=== PATIENT | male | born 1975 | race Caucasian/White ===

== ENCOUNTER → 2019-07-01 10:53 | Outpatient (CLI) | payer BC, SELFPAY | PROVIDERS: PCP Family Medicine; Visit Provider Nurse Practitioner Family | DX: G47.33 Obstructive sleep apnea (adult) (pediatric) (principal) | CPT/HCPCS: G0399 ==

== ENCOUNTER → 2019-07-08 13:49 | Outpatient (CLI) | payer BC, SELFPAY | PROVIDERS: PCP Family Medicine; Visit Provider Nurse Practitioner Family | DX: R07.9 Chest pain, unspecified (principal); I49.9 Cardiac arrhythmia, unspecified; R94.31 Abnormal electrocardiogram [ECG] [EKG]; G47.33 Obstructive sleep apnea (adult) (pediatric); Z82.49 Family history of ischemic heart disease and other diseases of the circulatory system | CPT/HCPCS: 93270 ==

== ENCOUNTER → 2019-07-22 14:35 | Outpatient (CLI) | payer BC, SELFPAY ==
--- NOTE | 2019-07-22 14:36 | CA_ITS ---
APPROVED REPORT Exam: Exercise Treadmill Technologist: Randi Dumas Ht: 6 ft 0 in Wt: 260 lbs BSA: 2.38 m2 Indications: ARRYHTHMIAS Medical History Medications: Migraine MED,,,,, Cardiac Risk Factors: FHX of CAD Stress Test Details Test: Exercise stress testing was performed using a Jean protocol. HR Resting HR: 74 bpm Max Heart Rate (APMHR): 174 bpm Max HR Achieved: 179 bpm Target HR (85% APMHR): 147 bpm % of APMHR: 102 BP Resting BP: 123/74 mmHg Max BP: 166/79 mmHg ECG Clinical Exercise duration: 09:00 min Highest Stage Achieved: Exercise capacity: 10.1 METs Stress ECG Conclusion no cp, positive for soa during pk exercise, resolved during recovery no ectopy less than 1.[address] depression gxt only good physical capacity, appropriate BP response, Normal exercise treadmill stress test Electronically signed by : Michael Ochoa, 07/23/2019 15:00:49
--- NOTE | 2019-07-22 14:36 | CA_ITS ---
APPROVED REPORT EXAM: Comprehensive 2D, Doppler, and color-flow Echocardiogram Cone Cleaner: Nadia Garcia RVT Ht: 6 ft 0 in Wt: 271lbs BSA: 2.42 BP: 127/67 mmHg Indications: CP,SOA,MOCTEZUMA,NAVA,ABN EKG 2D Dimensions LVOT 2.14 cm (M/F) 1.5-2.5 M-Mode Dimensions RVDd 2.42 cm (0.9-2.6) LVDd 4.78 cm (3.5-5.7) LVDs 2.68 cm (3.5-5.7) IVSd 0.95 cm (0.6-1.1) PWd 1.23 cm (0.6-1.1) EF (Teich) 75.10% FS 43.90% EDV (Teich) 106.50 mL ESV (Teich) 26.50 mL LV Diastology E/A Ratio 0.94 Mitral Valve MV A Velocity 67.00 (40-130 cm/s) Left Ventricle Left atrium is mildly enlarged, left ventricle is normal size, mild concentric left ventricular hypertrophy, visually estimated ejection fraction 55% with no regional wall motion abnormality, grade 1 diastolic dysfunction seen without tissue Doppler evidence of raise left atrial pressure. Right Ventricle Right atrium is normal size, right ventricle is mildly enlarged with normal contractility. Aortic Valve Aortic valve is grossly normal, there is no aortic stenosis or aortic insufficiency. Mitral Valve Mitral valve is grossly normal, there is mild mitral regurgitation. Tricuspid Valve Tricuspid valve is grossly normal, there is mild tricuspid regurgitation, tricuspid regurgitation jet velocity is inadequate for calculation of the right ventricular systolic pressure. Pulmonic Valve Pulmonic valve is poorly visualized. Great Vessels Aortic root is normal size. Pericardium No significant pericardial effusion noted. Conclusion 1. Normal left ventricular size, mild concentric left ventricular hypertrophy, visually estimated ejection fraction 55% with no regional wall motion abnormality, grade 1 diastolic dysfunction seen without tissue Doppler evidence of raise left atrial pressure. 2. Mildly enlarged right ventricle with normal contractility. 3. Mild mitral and tricuspid regurgitation. 4. No significant pericardial effusion noted. Electronically signed by : Michael Ochoa, 07/23/2019 15:17:32
== END ==
PROVIDERS: PCP Family Medicine; Visit Provider Nurse Practitioner Family
DX: R07.9 Chest pain, unspecified (principal); I49.9 Cardiac arrhythmia, unspecified; R94.31 Abnormal electrocardiogram [ECG] [EKG]; G47.33 Obstructive sleep apnea (adult) (pediatric); Z82.49 Family history of ischemic heart disease and other diseases of the circulatory system
CPT/HCPCS: 93017; 93306

== ENCOUNTER 2023-12-27 08:34 | Outpatient (CLI) | payer BC, SELFPAY ==
--- NOTE | 2023-12-27 08:34 | CT_ITS ---
APPROVED REPORT Biscuit Factory Worker: CLINICAL INDICATION Chest Pain TECHNIQUE Image Acquisition: A 128 slice MDCT scanner ([employer] View) was used for data acquisition. A noncontrast coronary calcium scan was performed. A CT attenuation threshold of 130 Hounsfield units (HU) was used for the detection of calcium in contiguous voxels of 1 sq mm in area to be counted as individual lesions. Bolus tracking in the ascending aorta with a threshold of 180 HU was performed. Immediately afterwards, ECG synchronized cardiac CT was then performed from the cardiac base to apex using retrospective gating with ECG tube current modulation. A total of 85 mL of Isovue 370 mg/mL contrast medium was administered at 5 mL/sec followed by a saline flush using a biphasic injection protocol. A tube voltage of 120 KVp was used. The patient received the following medications prior to the cardiac CT. 75 mg of oral metoprolol 15 mg of oral ivabradine 0.8 mg of sublingual nitroglycerin The average heart rate at the time of acquisition was 57 bpm and regular. Image Reconstruction Transaxial images were reconstructed at 0.67 mm slide thickness. Data was reviewed interactively on an advanced workstation capable of 2 and 3-dimensional displays in all conventional reconstruction formats, including multiplanar reformations, maximum intensity projections, curved multiplanar reformations, and volume rendered reconstructions. When applicable, selected routine images describing the relevant coronary anatomy and pathology were saved and sent to PACS. Complications None Technical Quality Overall image quality was good. Coronary artery opacification was adequate. Total DLP (Dose-Length Product) is 1843.0 mGy-cm. The reported value represents the total of one or more individual components during the CT acquisition of this date and at this time, and as such, the same value may appear in more than one CT report depending on the interpreting/reporting physicians. COMPARISON None FINDINGS CT Coronary Calcium Scoring LMA (Left Main Artery) = 0 LAD (Left Anterior Descending) = 0 LCX (Left Coronary Circumflex) = 0 RCA (Right Coronary Artery) = 0 Total Calcium Score = 0 using the AJ-130 method. The interpretation of the calcium heart score is based on the following continuum*: 0 = no calcified plaque detected (risk of coronary artery disease is very low ??? less than 5%) 1-10 = calcium detected in extremely minimal levels (risk of coronary diseases is still low ??? less than 10%) 11-100 = mild levels of plaque detected with certainty (mild or minimal narrowing of heart arteries is likely) 101-400 = definite,at least moderate levels of plaque detected (relatively high risk of a heart attack within 3-5 years) >401-999 = extensive levels of plaque detected (high risk of heart attack, high levels of vascular disease are present, high likelihood of at least one significant coronary narrowing) *The calcium heart score quantifies the burden of coronary calcification/plaque in the coronary arteries. The calcium heart score is not able to evaluate the presence or burden of non-calcified (i.e. soft) plaque. There is no identifiable calcification in the aortic valve, mitral annulus or mitral valve, pericardium, or myocardium. Coronary CT Angiography The coronary arterial system is right dominant. Quantitative Stenosis Grading: Left Main (LM): The left main originates normally from the left sinus of Valsalva. The LM bifurcates into the left anterior descending artery and left circumflex artery. The LM is patent with no evidence of atherosclerosis. Left Anterior Descending (LAD) and Diagonal Branches: The LAD gives off 3 diagonal branch(es). The LAD and its branches are patent with no evidence of atherosclerosis. There is no evidence of LAD-myocardial bridge. Left Circumflex (LCX) and Obtuse Marginals (OM): The LCX gives off 1 Obtuse Marginal (OM) branch(es). The LCX and its branches are patent with no evidence of atherosclerosis. Right Coronary Artery (RCA): The RCA originates normally from the right sinus of Valsalva. The RCA gives off a posterior descending artery (PDA) and posterolateral (PL) branches. The RCA and its branches are patent with no evidence of atherosclerosis. Non-Coronary Cardiac Findings: Analysis of the left ventricular (LV) structure and function was performed after 3-D reconstruction of the LV from axial images, with user-corrected automatic contouring for assessment of LV volumes and user-defined reconstruction from oblique planes for measurement of 3-D cardiac structure and function. -The left ventricle systolic function is normal. -There is no left atrial appendage filling defect. Two right pulmonary veins and two left pulmonary veins drain normally into the left atrium. -No pericardial thickening or calcification. -Central and branch pulmonary arteries in the [id number] are unremarkable. -Thoracic aorta within the visualized thoracic aortic-branches in the [id number] is unremarkable. Extracardiac Structures No significant extra-cardiac findings. Note, however, that this study is focused on the cardiac findings. IMPRESSION -Absence of coronary calcification with an Agatston score = 0 using the AJ-130 method. -No evidence of significant flow-limiting atherosclerosis of the coronary arteries. -No evidence of coronary anomalies or myocardial bridges. -CAD-RADS 0. Management recommendations per ACC/AHA guidelines*, as clinically appropriate. *Recommendations: CAD RADS 0: Reassurance. Consider non-atherosclerotic causes of chest pain. CAD RADS 1: Consider non-atherosclerotic causes of chest pain. Consider preventive therapy and risk factor modification. CAD RADS 2: Consider non-atherosclerotic causes of chest pain. Consider preventive therapy and risk factor modification, particularly for patients with nonobstructive plaque in multiple segments. CAD RADS 3: Consider further functional testing. Consider symptom-guided anti-ischemic and preventive pharmacotherapy as well as risk factor modification per published guideline statements. CAD RADS 4A: Consider further functional testing or invasive coronary angiography with revascularization per published guideline statements. Consider symptom-guided anti-ischemic and preventive pharmacotherapy as well as risk factor modification per published guideline statements. CAD RADS 4B: Invasive coronary angiography recommended with revascularization per published guideline statements. Consider symptom-guided anti-ischemic and preventive pharmacotherapy as well as risk factor modification per published guideline statements. CAD RADS 5: Consider invasive angiography and/or viability assessment with revascularization per published guideline statements. Consider symptom-guided anti-ischemic and preventive pharmacotherapy as well as risk factor modification per published guideline statements. CRITICAL RESULT None COMMUNICATION Per this written report The coronary and cardiac findings of this CCTA were reviewed, reported, and signed by Alec Red MD (D[employer] Carrier) Conclusion Electronically signed by : Angelita Red MD 12/30/2023 12:53:43
[2023-12-27 08:47] VITALS: BMI 39.3
[2023-12-27 08:55] VITALS: BP 152/87; PULSE 77; RESP 16; O2SAT 96
[2023-12-27] MEDS: IVABRADINE HCL 7.5MG TABLET PO (09:04)
[2023-12-27] MEDS: METOPROLOL TARTRATE 50MG TABLET PO (09:04)
[2023-12-27 09:31] LABS: Chloride 105 mmol/L (98-107); Potassium 3.9 mmoL/L (3.5-5.1); Sodium 138 mmol/L (136-145)
[2023-12-27 09:34] LABS: Anion Gap 8.9 mEq/L (5-15); Blood Urea Nitrogen 16 mg/dl (9-20); Carbon Dioxide 28 mmol/L (22.0-30.0); Creatinine Clearance Estimated 149 mL/min (50-200); Estimated Glomerular Filt Rate 71 ml/min (>60); GFR (African American) 86 ML/MIN (>60)
[2023-12-27 09:35] LABS: Calcium 9.1 mg/dl (8.4-10.2); Glucose 100 mg/dl (74-100)
[2023-12-27 10:05] VITALS: BP 138/93; PULSE 63; RESP 16; O2SAT 95
[2023-12-27] MEDS: IOPAMIDOL-370 (76%);100ML BOTTLE 80 ML IV (10:08)
[2023-12-27] MEDS: 0.9 % SODIUM CHLORIDE 50 ML VIAL IV (10:08)
[2023-12-27 10:11] VITALS: BP 121/79; PULSE 62; RESP 16; O2SAT 93
[2023-12-27 10:20] VITALS: BP 128/73; PULSE 65; RESP 16; O2SAT 95
== END 2023-12-27 10:22 | disposition home or self-care (01) ==
PROVIDERS: PCP Family Medicine; Visit Provider Internal Medicine
DX: R07.9 Chest pain, unspecified (principal); R94.31 Abnormal electrocardiogram [ECG] [EKG]; I10 Essential (primary) hypertension
CPT/HCPCS: 75574; 80048; Q9967

== ENCOUNTER 2025-01-10 22:58 | Observation (INO) | payer BC, SELFPAY ==
[2025-01-10 23:01] VITALS: BP 171/93; PULSE 74; RESP 18; TEMP 36.6; O2SAT 98; BMI 39.3
--- NOTE | 2025-01-10 23:04 | HMH.EDGENADL ---
Discharge Plan Disposition Patient Disposition: Admitted Prescriptions Prescriptions: No Action propranolol 80 mg capsule,extended release 24 hr 80 mg PO DAILY omeprazole 40 mg capsule,delayed release(DR/EC) 40 mg PO DAILY levothyroxine 112 mcg tablet 112 mcg PO DAILY Patient Comments: TAKE 1 TABLET BY MOUTH EVERY DAY IN THE MORNING rosuvastatin 10 mg tablet 10 mg PO HS Patient Comments: TAKE 1 TABLET BY MOUTH EVERY DAY allopurinol 100 mg tablet 100 mg PO DAILY colchicine [Colcrys] 0.6 mg tablet 0.6 mg PO BID PRN (Reason: ukn) rizatriptan 10 mg tablet,disintegrating 10 mg PO Q2H PRN (Reason: Hypertension) Patient Comments: PLEASE SEE ATTACHED FOR DETAILED DIRECTIONS Referrals Follow up/Referrals: Beatrice Finley [Primary Care Provider, Medical] - See instructions Clinical Impressions Clinical Impression: Bowel obstruction Instructions Patient Instructions: DI for Acute Abdominal Pain Print Language Print Language: Bulgarian Discharge ED Provider: Taco Smith General Adult HPI General Chief complaint: Abdominal Pain Stated complaint: Sharp Abdominal Pains Upper quadrant on both sides Time Seen by Provider: 01/10/25 23:04 History of Present Illness HPI narrative: 49-year-old male without significant past medical history, no history of abdominal surgery, presents for upper abdominal pain bilaterally starting a few hours ago. Pain is sharp, severe, 10 out of 10. Reports nausea secondary to pain. Had a normal formed bowel movement at 7 PM. Denies fever. Nothing like this has happened before. Related Data Home Medications ?Medication ?Instructions ?Recorded ?Confirmed allopurinol 100 mg tablet 100 mg PO DAILY 05/13/19 12/27/23 rizatriptan 10 mg disintegrating 10 mg PO Q2H PRN Hypertension 10/28/19 12/27/23 tablet propranolol 80 mg capsule,24 80 mg PO DAILY 01/27/20 12/27/23 hr,extended release colchicine 0.6 mg tablet (Colcrys) 0.6 mg PO BID PRN ukn 05/23/21 12/27/23 omeprazole 40 mg capsule,delayed 40 mg PO DAILY 05/23/21 12/27/23 release levothyroxine 112 mcg tablet 112 mcg PO DAILY 12/17/23 12/27/23 rosuvastatin 10 mg tablet 10 mg PO HS 12/17/23 12/27/23 Allergies Allergy/AdvReac Type Severity Reaction Status Date / Time Penicillins Allergy Unknown Unknown Verified 12/27/23 08:52 allergy reaction Sulfa (Sulfonamide Allergy Hives Verified 12/27/23 08:52 Antibiotics) [facility] Disclaimer: The information contained in this section may have been updated after the patient was seen, as this information can be updated by other users. Medical History Abnormal ECG Chest pain Family history of ischemic heart disease Arrhythmia NAVA (obstructive sleep apnea) Diastolic dysfunction HTN (hypertension) SOB (shortness of breath) on exertion Social History Smoking Status: Never smoker alcohol intake: current alcohol intake frequency: holidays/special occasions only substance use type: denies use current occupational status: employed Travel in the last 8 weeks?: Inside the [place] household members: none housing: house Have you lived/traveled outside [place] in past 30 days?: No Contact w/someone who lives/traveled outside US past 30 days?: No Exposure to someone with infectious disease in past 14 days?: No Do you have a fever (greater than 100.4 F or 38 C)?: No Have you tested positive for COVID-19?: No Exposed to someone with COVID-19 in past 14 days?: No Do you have a sore throat?: No Do you have a cough?: No Do you have any weakness?: No Do you have any diarrhea?: No Are you experiencing any unusual bleeding?: No Do you have any muscle aches/pain?: No Do you have any abdominal pain?: Yes Are you experiencing loss of taste or smell?: No Other Medical History Have you received the Flu Vaccine for this season: No Have you received the Pneumonia Vaccine: No ROS Obtained: Yes All systems reviewed & no additional complaints except as documented Physical Exam General General appearance: alert and in no apparent distress Head Head exam: atraumatic and normocephalic Eye Eye exam: Present normal appearance, PERRL and EOMI ENT ENT exam: Present normal oropharynx and normal external ear exam Neck Neck exam: Present normal inspection and full ROM Chest Chest inspection: Present normal inspection and symmetric chest wall rise; Absent tenderness Respiratory Respiratory exam: Present normal lung sounds bilaterally; Absent respiratory distress Cardiovascular Cardiovascular exam: Present regular rate and normal rhythm Abdominal Exam Abdominal exam: Present soft and tenderness (Moderate, bilateral upper quadrant); Absent distention or guarding Extremities Exam Extremities exam: Present normal inspection; Absent edema or joint swelling Back Exam Back exam: Present normal inspection; Absent tenderness Neurological Exam Neurological exam: Present alert and oriented X3; Absent motor sensory deficit Psychiatric Psychiatric exam: Present normal affect and normal mood Skin Skin exam: Present warm, dry and normal color Lymphatic Lymphatic Findings: no adenopathy Medical Decision Making Medical Records Medical records reviewed: Yes I reviewed the patient's medical records. Screening: Per USPSTF and CDC recommendations, given the prevalence of disease in our region, it is our hospital?s policy to screen for HIV and viral Hepatitis for all patients aged 18 and over and those with ongoing risk factors. Mauro Inquiry Pt receiving controlled substance: No Mauro was queried for this patient: No Vital Signs: 01/10/25 23:01 01/10/25 23:23 01/10/25 23:30 Temperature 97.9 F Temperature Source Oral Pulse Rate 76 75 Pulse Rate [Right] 74 Respiratory Rate 18 Blood Pressure Blood Pressure [Right Arm] 171/93 H Blood Pressure Mean Blood Pressure Mean [Right Arm] 119 Blood Pressure Source [Right Arm] Automatic Cuff Blood Pressure Position [Right Arm] Sitting 02 Sat by Pulse Oximetry 98 95 94 L 01/10/25 23:31 01/10/25 23:31 01/10/25 23:45 Temperature Temperature Source Pulse Rate 74 79 Pulse Rate [Right] Respiratory Rate Blood Pressure 129/78 Blood Pressure [Right Arm] Blood Pressure Mean 93 Blood Pressure Mean [Right Arm] Blood Pressure Source [Right Arm] Blood Pressure Position [Right Arm] 02 Sat by Pulse Oximetry 95 01/11/25 00:00 01/11/25 00:01 01/11/25 00:01 Temperature Temperature Source Pulse Rate 78 68 Pulse Rate [Right] Respiratory Rate Blood Pressure 126/67 Blood Pressure [Right Arm] Blood Pressure Mean 101 Blood Pressure Mean [Right Arm] Blood Pressure Source [Right Arm] Blood Pressure Position [Right Arm] 02 Sat by Pulse Oximetry 94 L 96 Lab Data Lab results reviewed: Yes I reviewed the patient's lab results. Lab Results 01/10/25 23:10: WBC 11.8 H, RBC 5.30, Hgb 16.1, Hct 47.1, MCV 88.9, MCH 30.4, MCHC 34.2, RDW 14.1, Plt Count 198, MPV 9.4, Neut % (Auto) 81.3 H, Lymph % (Auto) 10.9, [place] % (Auto) 6.1, Eos % (Auto) 0.7, Baso % (Auto) 0.6, Neut # (Auto) 9.6 H, Lymph # (Auto) 1.3, [place] # (Auto) 0.7, Eos # (Auto) 0.1, Baso # (Auto) 0.1, Sodium 137, Potassium 3.9, Chloride 100, Carbon Dioxide 28, Anion Gap 12.9, BUN 17, Creatinine 1.20, Estimated Creat Clear 136, Estimated GFR 64, Est GFR ( Amer) 77, Glucose 138 H, Calcium 9.5, Total Bilirubin 1.0, AST 37, ALT 38, Alkaline Phosphatase 86, Troponin I < 0.01, Total Protein 7.5, Albumin 3.9, Globulin 3.6 H, Albumin/Globulin Ratio 1.1, Lipase 89 01/10/25 23:13: Urine Color Yellow, Urine Appearance Clear, Urine pH 7.0, Ur Specific [place] 1.020, Urine Protein Trace, Urine Glucose (UA) Negative, Urine Ketones 1+, Urine Blood Negative, Urine Nitrate Negative, Urine Bilirubin Negative, Urine Urobilinogen 0.2, Ur Leukocyte Esterase Negative, Urine RBC None, Urine WBC None, Ur Squamous Epith Cells None, Urine Bacteria None 01/10/25 23:10 01/10/25 23:10 Orders (Tests/Meds): ED MEDICATIONS Generic Name Dose Route Start Last Admin Trade Name Freq PRN Reason Stop Dose Admin Lactated Ringer's 1,000 mls @ 999 mls/hr 01/11/25 00:45 Lactated Ringer's 1000 Ml Bag IV 01/11/25 01:45 .Q1H1M SHELLI Sodium Chloride 10 ml 01/11/25 00:11 01/11/25 00:12 Sodium Chloride 0.9% 10ml Syr (Rad Only) IV 02/10/25 00:10 10 ml NEEDED PRN Administration Maintain IV Site Discontinued Medications Generic Name Dose Route Start Last Admin Trade Name Freq PRN Reason Stop Dose Admin Acetaminophen 1,000 mg 01/10/25 23:21 01/10/25 23:36 Acetaminophen 500mg Tab PO 01/10/25 23:22 1,000 mg ONCE ONE Administration Belladonna Alkaloids 60 ml 01/10/25 23:21 01/10/25 23:35 Belladonna Alkaloids 60 Ml Ml PO 01/10/25 23:22 60 ml ONCE ONE Administration Iopamidol 75 ml 01/11/25 00:11 01/11/25 00:11 Iopamidol-370 (76%);100ml Bottle IV 01/11/25 00:12 75 ml ONCE ONE Administration Ketorolac Tromethamine 30 mg 01/10/25 23:21 01/10/25 23:36 Ketorolac 30mg/Ml Vial IV 01/10/25 23:22 30 mg ONCE ONE Administration Morphine Sulfate 4 mg 01/10/25 23:21 01/10/25 23:36 Morphine 4mg/Ml Syringe IV 01/10/25 23:22 4 mg ONCE ONE Administration Ondansetron HCl 4 mg 01/10/25 23:21 01/10/25 23:36 Ondansetron 4mg/2ml Vial IV 01/10/25 23:22 4 mg ONCE ONE Administration ORDERS Category Date Time Status CT abdomen pelvis w con Stat Cat Scan 01/10/25 23:21 Completed Complete Blood Count Auto Diff Stat Lab 01/10/25 23:10 Completed Comprehensive Metabolic Panel Stat Lab 01/10/25 23:10 Completed Lipase Stat Lab 01/10/25 23:10 Completed Trop I [Troponin I] Stat Lab 01/10/25 23:10 Completed Troponin I Q3H Lab 01/11/25 02:30 Ordered Troponin I Q3H Lab 01/11/25 05:30 Ordered Urinalysis and Microscopic Stat Lab 01/10/25 23:13 Completed EKG Request [ECG Request] Stat Y 01/10/25 23:21 Ordered HEART Score History (anamnesis): Slightly suspicious ECG: Normal Age: 45-65 years Risk factors: No known risk factors Troponin: </= normal limit HEART Score: 1 Medical Decision Narrative: 49-year-old male without significant reported past medical history presents for severe bilateral upper abdominal pain. History was obtained via interactive discussion with patient, chart review. On arrival, patient is [afebrile, hemodynamically stable, satting appropriately, alert, oriented x4, GCS 15], moving all extremities spontaneously. Full physical exam performed and significant for moderate bilateral upper quadrant tenderness Differential includes but is not limited to cholecystitis, gastritis, gastroenteritis, peptic ulcer, bowel obstruction, colitis, diverticulitis. Patient was given morphine Tylenol Toradol Zofran GI cocktail for symptomatic management and correction of underlying abnormalities. Workup initiated including CBC CMP lipase EKG troponin CT abdomen pelvis with IV contrast. On re-evaluation, patient continues to have pain approximately 7 out of 10. Laboratory workup independently interpreted by me and significant for mild leukocytosis, normal renal function, no significant electrolyte derangement, negative initial troponin. Urinalysis clean. Imaging independently interpreted by me and significant for significant fluid within the dilated small bowel with a decompressed colon concerning for developing small bowel obstruction.. See radiology read for full review of final results. EKG independently interpreted by me and significant for sinus rhythm, no significant ST or T wave changes, isolated Q-wave in lead III. Interpreted at 2328. Given patient history, exam and workup, patient's presentation most likely represents enteritis with ileus versus early small bowel obstruction. Interactive discussion was had with hospitalist on-call for admission for observation for possible small bowel obstruction. Procedures Risk/Benefits of Procedure(s) Were Explained: Yes Critical Care Critical Care Time Critical Care Time: No
--- OUTSIDE RECORDS SUMMARY | 2025-01-10 23:07 | XMS_ITS | Encounter Summary ---
Author Organization [facility] ([place], [place], [place], [place]) Address [address] [place] [address] Care Team Providers Care Security Orderly Name Role Phone Beatrice Finley MD Primary Care Provider [phone] Sonali Mccray TRANSMISSION SYSTEMS OPERATOR Unavailable [phone] Reason for Visit * Reason Comments Medication Refill Encounter Details Date Type Department Care Team (Late Contact Info) Description 10/30/2022 Refill [facility] Neurology - [facility] [address] [place] [address] Sonali Mccray TRANSMISSION SYSTEMS OPERATOR [address] [facility] [address] [place], [place] [id number] Migraine without aura, not intractable, without status migrainosus Social History Tobacco Use Types Packs/Day Years Used Date Smoking Tobacco: Never Alcohol Use Standard Drinks/Week Comments Never 0 (1 standard drink = 0.6 oz pur e alcohol) Sex and Gender Information Value Date Recorded Sex Assigned at Not on file Legal Sex Male 6:26 PM CDT Gender Identity Not on file Sexual Orientation Not on file Occupation Industry Job Start Date Job End Date Employed Not on file Not on file Not on file documented as of this encounter Plan of Treatment Upcoming Encounters Date Type Department Care Team (Late Contact Info) Description 04/01/2025 2:45 PM EST Office Visit [facility] Neurology [facility] [address] [place] [address] Sonali Mccray, TRANSMISSION SYSTEMS OPERATOR [address] [facility] [address] [place] [address] documented as of this encounter Visit Diagnoses Diagnosis Migraine without aura, not intractable, without status migrainosus documented in this encounter Care Teams Security Orderly Relationship Specialty Start Date End Date Beatrice Finley MD [address] [place] [phone] PCP - General Family Medicine 10/30/22 Sonali Mccray, TRANSMISSION SYSTEMS OPERATOR [address] [facility] [address] [place] [address] Neurology 12/18/23 documented as of this encounter
--- OUTSIDE RECORDS SUMMARY | 2025-01-10 23:07 | XMS_ITS | Encounter Summary ---
Author Organization [employer] ([place], [place], [place], [place]) Address [address] [place] [address] Care Team Providers Care Bobtailer Name Role Phone Beatrice Finley MD Primary Care Provider [phone] Sonali Mccray WOODYARD CRANE OPERATOR Unavailable [phone] Reason for Visit * Reason Comments Medication Refill Encounter Details Date Type Department Care Team (Late st Contact Info) Description 09/27/2022 Refill [facility] Neurology - [place] [address] [place] [phone] Sonali Mccray, WOODYARD CRANE OPERATOR [address] [facility] [address] [place] [address] Migraine without aura, not intractable, without status migrainosus Social History Tobacco Use Types Packs/Day Years Used Date Smoking Tobacco: Never Assessed Sex and Gender Information Value Date Recorded Sex Assigned at Not on file Legal Sex Male 6:26 PM CDT Gender Identity Not on file Sexual Orientation Not on file documented as of this encounter Plan of Treatment Upcoming Encounters Date Type Department Care Team (Late st Contact Info) Description 04/01/2025 2:45 PM EST Office Visit [facility] Neurology - [place] [address] [place] [phone] Sonali Mccray, WOODYARD CRANE OPERATOR [address] [facility] [address] [place], [place] [id number] documented as of this encounter Visit Diagnoses Diagnosis Migraine without aura, not intractable, without status migrainosus documented in this encounter Care Teams Bobtailer Relationship Specialty Start Date End Date Beatrice Finley MD [address] [place] [phone] PCP - General Family Medicine 10/30/22 Sonali Mccray, WOODYARD CRANE OPERATOR [address] [place] [address] Neurology 12/18/23 documented as of this encounter
--- OUTSIDE RECORDS SUMMARY | 2025-01-10 23:07 | XMS_ITS | Clinical Summary ---
Author Organization [employer] ([place], [place], [place], [place]) Address [address] [place] [address] Care Team Providers Care Seed Mill Superintendent Name Role Phone Beatrice Finley MD Primary Care Provider [phone] Sonali Mccray APRN Unavailable [phone] Allergies Active Allergy Reactions Criticality Noted Date Comments Penicillin 10/30/2022 Medications levothyroxine (SYNTHROID, LEVOTHROID) 100 MCG tablet Take 1 tablet (100 mcg total) by mouth daily. 08/27/19 23 Active meloxicam (MOBIC) 15 MG tablet Take 1 tablet (15 mg total) by mouth daily. Active naproxen (NAPROSYN) 500 MG tablet Take 1 tablet (500 mg total) by mouth 2 (two) times daily with breakfast and dinner. Active rizatriptan (MAXALT) 10 MG disintegrating tabletIndications :Migraine without aura, not intractable, without status migrainosus Melt 1 tablet on tongue at onset of migraine. May repeat a dose in 2 hours if needed. Max of 2 tabs/24 hours.. 9 tablet 11 12/18/19 24 Active propranoloL (INDERAL LA) 80 MG 24 hr capsuleIndication s:Migraine without aura, not intractable, without status migrainosus TAKE 1 CAPSULE BY MOUTH EVERY DAY 30 capsule 12/19/19 25 Active rimegepant (Nurtec ODT) 75 mg TbDLIndications:M igraine without aura, not intractable, without status migrainosus Take 75 mg by mouth daily as needed (Migraine). 8 tablet 2 12/25/19 25 Active propranoloL (INDERAL LA) 80 MG 24 hr capsuleIndication s:Migraine without aura, not intractable, without status migrainosus Take 1 capsule (80 mg total) by mouth daily. 90 capsule 3 12/18/19 24 2024 Discontinued rimegepant (Nurtec ODT) 75 mg TbDLIndications:M igraine without aura, not intractable, without status migrainosus Take 75 mg by mouth daily as needed (Migraine). 8 tablet 11 12/24/19 24 2024 Discontinued(R eorder) Active Problems No known active problems Encounters Date Type Department Care Team Description 12/24/2024 Orders Only [facility] Neurology - [facility] [address] [place] [address] Kandace Monge CMA Migraine without aura, not intractable, without status migrainosus 12/18/2024 Refill [facility] Neurology - [facility] [address] [place] [address] Sonali Mccray APRN Migraine without aura, not intractable, without status migrainosus from Last 3 Months Family History Medical History Relation Name Comments No Known Problem Father No Known Problem Mother Relation Name Status Comments Father Mother Social History Tobacco Use Types Packs/Day Years Used Date Smoking Tobacco: Never Smokeless Tobacco: Never Tobacco Cessation:Counseling Given: Not Answered Alcohol Use Standard Drinks/Week Comments Never 0 (1 standard drink = 0.6 oz pur e alcohol) Food Insecurity Answer Date Recorded Food run out past 12 months Not on file 03/18 Food did not last past 12 months Not on file 04/05/2023 Employment Answer Date Recorded Help finding and keeping a job Not on file 0 04/05/2023 Family and Community Support Answer Jaron e Recorded Help with Day to Day Activities Not on file 04/05/2023 Feeling Lonely or Isolated Not on file 04/05 Educational Attainment Answer Date Danilo rded Speak language other than Nepali at home Not on file 04/05/2023 Want help with school or training Not on file 04/05/2023 Substance Use Answer Date Recorded Used prescription meds for non-medical reasons N ot on file 04/05/2023 Used illegal drugs past 12 months Not on file 04/05/2023 Sex and Gender Information Value Date Recorded Sex Assigned at Not on file Legal Sex Male 6:26 PM CDT Gender Identity Not on file Sexual Orientation Not on file Occupation Industry Job Start Date Job End Date Employed Not on file Not on file Not on file Last Filed Vital Signs Vital Sign Reading Time Taken Comments Blood Pressure 135/80 12/18/2023 2:56 PM EDT Pulse 66 12/18/2023 2:56 PM EDT Temperature - - Respiratory Rate - - Oxygen Saturation 97% 12/18/2023 2:56 PM EDT Inhaled Oxygen Concentration - - Weight 131.8 kg (290 lb 8 oz) 12/18/2023 2:56 PM EDT Height 182.9 cm (6') 12/18/2023 2:56 PM EDT Body Mass Index 39.4 12/18/2023 2:56 PM EDT Plan of Treatment Upcoming Encounters Date Type Department Care Team (Late st Contact Info) Description 04/01/2025 2:45 PM EST Office Visit [facility] Neurology - [facility] [address] [facility] [address] [place] [address] Sonali Mccray, REHABILITATION COUNSELOR [address] [facility] [address] [place] [address] Health Maintenance Due Date Last Done Comments CT Colonography 1973 Colonoscopy 1973 Colorectal Cancer Screening 1973 FOBT/FIT 1973 Fit-DNA (Cologuard) 1973 Sigmoidoscopy 1973 Depression Screening (12+) 1985 HIV Screening 02/05/1988 Hepatitis C Screening 1991 Lipid Panel 02/05/2008 Pneumococcal 50+ years (1 of 1 - PCV) 2023 Shingles Vaccine (Zoster) (1 of 2) 2023 COVID-19 VACCINE (3 - 2024-2 6 season) 2024 10/10/2020, 09/10/2020 Influenza Vaccine (#1) 2024 3, 12/29/2020, 02/17/2019, Additional history exists Tobacco Cessation Counseling and Screening (12+) 12/17/2024 12/18/2023 DTAP/TDAP/TD VACCINES (3 - T d or Tdap) 12/02/2028 12/02/2018, 05/28/2005 Insurance BLUE CROSS/BLUE SHIELD Care Teams Seed Mill Superintendent Relationship Specialty Start Date End Date Beatrice Finley MD [address] [place] [phone] PCP - General Family Medicine 10/30/22 Sonali Mccray, REHABILITATION COUNSELOR [address] [facility] [address] [place] [address] Neurology 12/18/23
--- OUTSIDE RECORDS SUMMARY | 2025-01-10 23:07 | XMS_ITS | Encounter Summary ---
Author Organization [employer] ([place], [place], [place], [place]) Address [address] [place] [address] Care Team Providers Care Needle Punch Machine Operator Helper Name Role Phone Beatrice Finley MD Primary Care Provider [phone] Sonali Mccray MEDICAL PRACTICE ASSISTANT Unavailable [phone] Reason for Visit * Reason Comments Medication Refill Encounter Details Date Type Department Care Team (Late st Contact Info) Description 12/18/2024 Refill [facility] Neurology - [facility] [address] [facility] [address] [place] [phone] Sonali Mccray, MEDICAL PRACTICE ASSISTANT [address] [facility] [address] [place] [address] Migraine without aura, not intractable, without status migrainosus Social History Tobacco Use Types Packs/Day Years Used Date Smoking Tobacco: Never Smokeless Tobacco: Never Alcohol Use Standard Drinks/Week Comments [...] Date Danilo rded Speak language other than Thai at home Not on file 04/05/2023 Want [...] Description 04/01/2025 2:45 PM EST Office Visit [facility] Neurology - [address] [place] [phone] Sonali Mccray, ADELSO [address] [facility] [address] [place] [address] documented as of this encounter Visit Diagnoses Diagnosis Migraine without aura, not intractable, without status migrainosus documented in this encounter Care Teams Needle Punch Machine Operator Helper Relationship Specialty Start Date End Date Beatrice Finley MD [address] [place] [address] [address] [place] [address] PCP - General Family Medicine 10/30/22 Sonali Mccray, MEDICAL PRACTICE ASSISTANT [address] [facility] [address] [place] [address] Neurology 12/18/23 documented as of this encounter
--- OUTSIDE RECORDS SUMMARY | 2025-01-10 23:08 | XMS_ITS | Data Portability ---
Author Organization [facility] Address [address] [place] [address] Care Team Providers Care Cracking Unit Operator Name Role Phone HUNTER HEADLEY Referring Provider [phone] CHANNING LUONG Referring Provider Assessment Encounter Date Assessment Date Assessment LastModified by Organization Details LastModified Time 02/16/2021 02/16/2021 Mr. Russo presents for a check up. She continues to have worsening pain with burning in both feet that has started to interfere with his work. 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 There also is some burning at night but it isn't really interfering with his sleep. He has had no known injuries but we note he is developing bunions. He has never had diabetes that we are aware of. His chronic migraines are under better control with low dose propranolol and he does want to continue that medication although it makes him fatigued. Labs are taken and the uric acid level remains too high so we will increase the allopurinol from 100 to 200 mg daily. In addition he appears to have developed under active thyroid so we will add a low dose of supplement. Lipids are elevated with high triglycerides and a normal cholesterol. Glucose is normal. For the ongoing foot pain we recommend podiatry referral. We recommend a screening colonoscopy. He has gained weight over the years and reduction is advised for best health. ashley Not available 02/19/2021 20:52:39 05/31/2022 05/31/2022 Mr. Russo presents for a check up. He has developed significant and worsening bilateral knee pain that bothers him walking down steps or an incline especially. He has gained considerable weight over the years and we discussed that is a significant risk factor for knee problems. 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 The knee pain does not interfere with his sleep however. There also is some burning at night but it isn't really interfering with his sleep. He has had no known injuries but we note he is developing bunions. He has never had diabetes that we are aware of. His chronic migraines are under better control with low dose propranolol and he does want to continue that medication. He does follow with neurology. Labs are reviewed and lipids are elevated with high triglycerides and a normal cholesterol. Glucose is normal but A1C is barely in prediabetes range. TSH is elevated so we do recommend increasing the levothyroxine. Ten year calculated CV risk is 5.68%. For the significant knee pain we recommend imaging and orthopedic referral. He has gained weight over the years and reduction is advised for best health. ashley Not available 06/01/2022 08:03:53 10/11/2023 10/11/2023 Mr. Russo presents for a wellness check up. He has developed significant and worsening bilateral knee pain that bothers him walking down steps or an incline especially. He has gained considerable weight over the years and we discussed that is a significant risk factor for knee problems. 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 The knee pain does not interfere with his sleep however. There also is some burning at night but it isn't really interfering with his sleep. He has had no known injuries but we note he is developing bunions. He has never had diabetes that we are aware of. He has now been getting knee injections that have helped some. His chronic migraines are under better control with low dose propranolol and he does want to continue that medication. He does follow with neurology. Labs are reviewed and lipids are elevated so we recommend he begin a low dose statin. Glucose is normal but A1C is barely in prediabetes range. TSH is elevated so we do recommend increasing the levothyroxine to 112 mcg daily. Ten year calculated CV risk is 8.96%. He has gained weight over the years and reduction is advised for best health. He should follow up closely for the blood pressure, lipids, and prediabetes. Not available 10/13/2023 21:58:30 03/30/2024 03/30/2024 Mr. Russo has had an uncomfortable pain in his throat for 3 weeks. This past week he felt like he had a typical sore throat but also feels like he has been hit in the neck. The uvula is swollen and red. A rapid strep is negative and we have sent for a throat culture. He is allergic to penicillin so will treat with zithromax and a dose of decadron 1 cc IM for the inflammation. We are also checking inflammatory markers as a precaution. I cannot detect any thyroid nodules and his neck is large. 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 He has a new machine but was still using the old device until January when he stopped as he apparently had trouble getting supplies. He has gained 75 pounds over the past nine years and continues to gain weight. He remarks that it is frustrating for him. We recommend he have a follow up for the sleep apnea and will refer to Dr. Pineda. He also was diagnosed with prediabetes and needs lab follow up. In September he was started on Crestor for very high cholesterol and is due that lab as well. We had to increase his thyroid supplement in September so need that lab repeated as well. [email or web address] Not available 03/30/2024 15:22:54 11/05/2024 11/05/2024 Mr. Russo presents for a wellness check up. He has significant bilateral knee pain that bothers him walking down steps or an incline especially. He has gained considerable weight over the years and we discussed that is a significant risk factor for knee problems. 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 The knee pain does not interfere with his sleep however. There also is some burning at night but it isn't really interfering with his sleep. He has had no known injuries but we note he is developing bunions. He has been getting knee injections that have helped some. His chronic migraines are under better control with low dose propranolol and he does want to continue that medication. He does follow with neurology. Labs are reviewed and lipids are still elevated and we did prescribe a low dose statin but compliance is questionable. Glucose is normal but A1C has been increasing in the prediabetes range. TSH is still elevated so we do recommend increasing the levothyroxine to 150 mcg daily. Again medication compliance is encouraged and a close follow up is necessary. He gets weak feeling and very tired after eating and we reviewed that his diet at work is primarily carbs and simple carbs at that. We discussed working on healthier options with more protein and complex carbs in fruit and vegetables rather than the chips and crackers he typically eats. Immunizations are reviewed and we encourage him to consider the Shingrix vaccines. He does receive the Prevnar 20 today. Ten year calculated CV risk is 9.57%. He has gained weight over the years and reduction is advised for best health. He should follow up closely for the blood pressure, lipids, thyroid and prediabetes. ashley Not available 11/08/2024 11:29:01 Plan of Treatment Reminders Order Date Submit Date Provider Last Modified By Organization Details Last Modified Time Details Appointments None recorded. Lab HbA1c (hemoglobin A1c), blood 2024 025 [facility], [address], [place], [address], 5 12:40:14 CMP, serum or plasma 2024 025 [facility], [address], [place], [address], 5 12:40:13 lipid panel, serum 2024 025 [facility], [address], [place], [address], 5 12:40:12 rapid strep group A, throat 2024 025 matt n5 [facility], [address] [place] [address], [place], [address], 5 14:51:41 culture, throat 2024 025 [facility], [address], [place], [address], 5 12:40:17 erythrocyte sedimentati on rate by westergren method 2024 025 [facility], [address], [place], [address], 5 12:40:15 C-reactive protein, quantitativ e, serum or plasma 2024 025 [facility], [address], [place], [address], 5 12:40:16 TSH, serum or plasma 2024 025 [facility], [address], [place], [address], 5 12:40:15 uric acid, serum or plasma 2020 [facility], [address] [place], [address], 07:17:44 lipid panel, serum 2020 [facility], [address] [place], [address], 07:17:43 TSH, serum or plasma 2020 [facility], [address] [place], [address], 07:17:45 CBC w/ auto diff 2020 021 [facility], [address] [place], [address], 12/03/202 1 07:17:45 CMP, serum or plasma 2020 021 [facility], [address] [facility], [place], [address], 1 07:17:44 Referral sleep medicine referral 2024 025 matt Pineda MD, [address], [facility] [address], [place], [address], 5 09:56:41 orthopedic surgeon referral 2022 023 matt Reese MD, [address], [facility] [address], [place], [address], 3 15:22:04 hospital manager referral 2020 021 matt Juárez DPM, [address] [facility] [place], [address], 2 12:00:29 Procedures colonoscopy screening (PROC) 2020 021 matt Muñoz MD, [address] [facility], [place], [address], 1 09:26:22 Surgeries None recorded. Imaging XR, knee, 3 view [address] (Radiology), [address] [place], [address], 3 10:57:30 XR, knee, 3 view [address] (Radiology), [address], [place], [address], 3 10:57:30 Medication Orders levothyroxi ne 150 mcg tablet 2024 025 [facility], [address] [place], [address], 5 11:27:42 Zithromax Z-Rob 250 mg tablet 2024 025 [facility], [address] [place], [address], 5 16:44:29 dexamethaso ne sodium phosphate 4 mg/mL injection solution [address]/[facility], [address] [place], [address], 5 16:44:33 levothyroxi ne 112 mcg tablet [address]/[facility], [address] [place], [address], 5 11:28:01 rosuvastati n 10 mg tablet 2023 024 [facility], [address] [place], [address], 4 17:19:36 levothyroxi ne 100 mcg tablet [address]/[facility], [address] [place], [address], 5 15:04:23 allopurinol 100 mg tablet [address]/[facility], [address] [place], [address], 3 15:51:49 levothyroxi ne 50 mcg tablet [address]/[facility], [address] [place], [address], 4 16:52:20 Patient TargetsNo targets recorded. Patient Instructions Encounter Date Encounter Id Patient Instructions Last Modified By Organization Details Last Modified Time 05/31/2022 [id number] dash diet: care instructions Not available 05/31/2022 16:29:56 learning about t he mediterranean diet Not available 05/31/2022 16:29:56 learning about healthy weight Not available 05/31/2022 16:29:56 10/11/2023 [id number] dash diet: care instructions Not available 10/13/2023 21:52:35 learning about t he mediterranean diet Not available 10/13/2023 21:52:35 learning about healthy weight Not available 10/13/2023 21:52:35 11/05/[id number] dash diet: care instructions Not available 11/05/2024 16:46:15 learning about t he mediterranean diet Not available 11/05/2024 16:46:15 learning about healthy weight Not available 11/05/2024 16:46:15 Reason for Referral Water Analyst Referral for Plan tar fasciitis of left foot Referring Physician: Beatrice Finley [facility], Encounter Date: 02/16/2021 Orthopedic Surgeon Referral for Pain of bilateral knee joints Referring Physician: Beatrice Finley [facility], Encounter Date: 05/31/2022 Sleep Medicine Referral for Obstructive sleep apnea syndrome Referring Physician: Beatrice Finley [facility], Encounter Date: 03/30/2024 Results Created Date Observation Date Name Description Value Unit Range Abnormal Flag Note LastModifiedBy Organization Detail LastModifiedTime 02/17/20 21 02/17/2021 LIPID PANEL , STAND ABBI cholesterol, total 189 mg/dL <200 normal Not Available [facility] [address] [place], [address], 02/17/2021 07:17:43 02/17/20 21 02/17/2021 LIPID PANEL , STAND ABBI HDL cholesterol 25 mg/dL > or = 40 low Not Available [facility] [address] [place], [address], 02/17/2021 07:17:43 02/17/20 21 02/17/2021 LIPID PANEL , STAND ABBI triglyceride s 428 mg/dL <150 high If a non-f astin g speci men was colle cted, consi dora repea t trigl yceri de testi ng on a fasti ng speci men if clini demarcus indic ated. Carlton montes et al. J. of Clin. Lipid ol. 2015; 9:129 -169. Not Available [facility] [address], [place], [address], 02/17/2021 07:17:43 02/17/20 21 02/17/2021 LIPID PANEL , STAND ABBI LDL-choleste rol mg/dL _(fabricio c) LDL nery stero l not calcu lated . Trigl yceri de level s great er than 400 mg/dL inval idate calcu lated LDL resul ts. Refer ence range : <100 Fam able range <100 mg/dL for prima ry preve ntion ; <70 mg/dL for patie nts with CHD or diabe tic patie nts with > or = 2 CHD risk facto rs. LDL-C is now calcu lated using the Anali n-Hop kins calcu latesequiel n, which is a valid ated novel metho d provi ding rita r accur acy than the Fried saranya equat ion in the estim ation of LDL-C . Anali shabazz SS et al. NEYMAR. 2013; 310(1 9): 2061- 2068 (http ://ed ucati on.Qu estDi 5211game. com/f aq/FA Q164) Not Available [facility] [address], [place], [address], 02/17/2021 07:17:43 02/17/20 21 02/17/2021 LIPID PANEL , STAND ABBI chol/HDLC ratio 7.6 (calc ) <5.0 high Not Available [facility] [address], [place], [address], 02/17/2021 07:17:43 02/17/20 21 02/17/2021 LIPID PANEL , STAND ABBI non HDL cholesterol 164 mg/dL _(fabricio c) <130 high For patie nts with diabe carmen plus 1 major ASCVD risk facto r, treat ing to a non-H DL-C goal of <100 mg/dL (LDL- C of <70 mg/dL ) is consi dered a thera peuti c optio n. Not Available [facility] [address] [facility], [place], [address], 02/17/2021 07:17:43 02/17/2002/17/2021 COMPR EHENS MIKE METAB OLIC PANEL glucose 83 mg/dL 65-99 normal Fasti ng refer ence inter adriel Not Available [facility] [address] [place], [address], 02/17/2021 07:17:44 02/17/20 21 02/17/2021 COMPR EHENS MIKE METAB OLIC PANEL urea nitrogen (BUN) 16 mg/dL 7-25 normal Not Available [facility] [address] [facility] [place], [address], 02/17/2021 07:17:44 02/17/20 21 02/17/2021 COMPR EHENS MIKE METAB OLIC PANEL creatinine 1.20 mg/dL 0.60-1 .35 normal Not Available [facility] [address] [facility] [place], [address], 02/17/2021 07:17:44 02/17/20 21 02/17/2021 COMPR EHENS MIKE METAB OLIC PANEL eGFR non-afr. cayman islander 71 mL/mi n/1.7 3m2 > or = 60 normal Not Available [facility] [address] [place], [address], 02/17/2021 07:17:44 02/17/20 21 02/17/2021 COMPR EHENS MIKE METAB OLIC PANEL eGFR 82 mL/mi n/1.7 3m2 > or = 60 normal Not Available [facility] [address] [place], [address], 02/17/2021 07:17:44 02/17/20 21 02/17/2021 COMPR EHENS MIKE METAB OLIC PANEL BUN/creatini ne ratio NOT APPLIC ABLE (calc ) 6-22 Not Available [facility] [address] [place], [address], 02/17/2021 07:17:44 02/17/20 21 02/17/2021 COMPR EHENS MIKE METAB OLIC PANEL sodium 140 mmol/ L 135-14 6 normal Not Available [facility] [address] [place], [address], 02/17/2021 07:17:44 02/17/20 21 02/17/2021 COMPR EHENS MIKE METAB OLIC PANEL potassium 4.5 mmol/ L 3.5-5. 3 normal Not Available [facility] [address] [place], [address], 02/17/2021 07:17:44 02/17/20 21 02/17/2021 COMPR EHENS MIKE METAB OLIC PANEL chloride 103 mmol/ L 98-110 normal Not Available [facility] [address] [place], [address], 02/17/2021 07:17:44 02/17/20 21 02/17/2021 COMPR EHENS MIKE METAB OLIC PANEL carbon dioxide 28 mmol/ L 20-32 normal Not Available [facility] [address] [place], [address], 02/17/2021 07:17:44 02/17/20 21 02/17/2021 COMPR EHENS MIKE METAB OLIC PANEL calcium 9.4 mg/dL 8.6-10 .3 normal Not Available [facility] [address] [facility] [place], [address], 02/17/2021 07:17:44 02/17/20 21 02/17/2021 COMPR EHENS MIKE METAB OLIC PANEL protein, total 6.8 g/dL 6.1-8. 1 normal Not Available [facility] [address] [facility] [place], [address], 02/17/2021 07:17:44 02/17/20 21 02/17/2021 COMPR EHENS MIKE METAB OLIC PANEL albumin 4.2 g/dL 3.6-5. 1 normal Not Available [facility] [address] [facility] [place], [address], 02/17/2021 07:17:44 02/17/20 21 02/17/2021 COMPR EHENS MIKE METAB OLIC PANEL globulin 2.6 g/dL_ (calc ) 1.9-3. 7 normal Not Available [facility] [address] [facility] [place], [address], 02/17/2021 07:17:44 02/17/20 21 02/17/2021 COMPR EHENS MIKE METAB OLIC PANEL albumin/glob ulin ratio 1.6 (calc ) 1.0-2. 5 normal Not Available [facility] [address] [facility] [place], [address], 02/17/2021 07:17:44 02/17/20 21 02/17/2021 COMPR EHENS MIKE METAB OLIC PANEL bilirubin, total 0.6 mg/dL 0.2-1. 2 normal Not Available [facility] [address] [place], [address], 02/17/2021 07:17:44 02/17/20 21 02/17/2021 COMPR EHENS MIKE METAB OLIC PANEL alkaline phosphatase 63 U/L 36-130 normal Not Available [facility] [address] [facility] [place], [address], 02/17/2021 07:17:44 02/17/20 21 02/17/2021 COMPR EHENS MIKE METAB OLIC PANEL AST 20 U/L 10-40 normal Not Available [facility] [address] [facility] [place], [address], 02/17/2021 07:17:44 02/17/20 21 02/17/2021 COMPR EHENS MIKE METAB OLIC PANEL ALT 30 U/L 9-46 normal Not Available [facility] [address] [facility] [place], [address], 02/17/2021 07:17:44 02/17/20 21 02/17/2021 URIC ACID uric acid 8.8 mg/dL 4.0-8. 0 high Thera sharath c kimberly t for gout patie nts: <6.0 mg/dL Not Available [facility] [address] [facility] [place], [address], 02/17/2021 07:17:44 02/17/20 21 02/17/2021 TSH TSH 6.70 mIU/L 0.40-4 .50 high Not Available [facility] [address] [facility] [place], [address], 02/17/2021 07:17:45 02/17/20 21 02/17/2021 CBC (INCL UDES DIFF/ PLT) white blood cell count 7.4 thous and/u L 3.8-10 .8 normal Not Available [facility] [address] [place], [address], 02/17/2021 07:17:45 02/17/20 21 02/17/2021 CBC (INCL UDES DIFF/ PLT) red blood cell count 5.01 dian on/uL 4.20-5 .80 normal Not Available [facility] [address] [facility] [place], [address], 02/17/2021 07:17:45 02/17/20 21 02/17/2021 CBC (INCL UDES DIFF/ PLT) hemoglobin 15.2 g/dL 13.2-1 7.1 normal Not Available [facility] [address] [facility] [place], [address], 02/17/2021 07:17:45 02/17/2002/17/2021 CBC (INCL UDES DIFF/ PLT) hematocrit 44.2 % 38.5-5 0.0 normal Not Available [facility] [address] [facility] [place], [address], 02/17/2021 07:17:45 02/17/2002/17/2021 CBC (INCL UDES DIFF/ PLT) MCV 88.2 fL 80.0-1 00.0 normal Not Available [facility] [address] [facility] [place], [address], 02/17/2021 07:17:45 02/17/2002/17/2021 CBC (INCL UDES DIFF/ PLT) MCH 30.3 pg 27.0-3 3.0 normal Not Available [facility] [address] [facility] [place], [address], 02/17/2021 07:17:45 02/17/20 21 02/17/2021 CBC (INCL UDES DIFF/ PLT) MCHC 34.4 g/dL 32.0-3 6.0 normal Not Available [facility] [address] [facility] [place], [address], 02/17/2021 07:17:45 02/17/20 21 02/17/2021 CBC (INCL UDES DIFF/ PLT) RDW 13.4 % 11.0-1 5.0 normal Not Available [facility] [address] [facility] [place], [address], 02/17/2021 07:17:45 02/17/20 21 02/17/2021 CBC (INCL UDES DIFF/ PLT) platelet count 260 thous and/u L 140-40 0 normal Not Available [facility] [address] [facility] [place], [address], 02/17/2021 07:17:45 02/17/20 21 02/17/2021 CBC (INCL UDES DIFF/ PLT) MPV 10.5 fL 7.5-12 .5 normal Not Available [facility] [address] [facility] [place], [address], 02/17/2021 07:17:45 02/17/20 21 02/17/2021 CBC (INCL UDES DIFF/ PLT) absolute neutrophils 4566 cells /uL 1500-7 800 normal Not Available [facility] [address] [facility] [place], [address], 02/17/2021 07:17:45 02/17/20 21 02/17/2021 CBC (INCL UDES DIFF/ PLT) absolute lymphocytes 1887 cells /uL 850-39 00 normal Not Available [facility] [place], [address], 02/17/2021 07:17:45 02/17/20 21 02/17/2021 CBC (INCL UDES DIFF/ PLT) absolute monocytes 777 cells /uL 200-95 0 normal Not Available [facility] [address] [place], [address], 02/17/2021 07:17:45 02/17/20 21 02/17/2021 CBC (INCL UDES DIFF/ PLT) absolute eosinophils 104 cells /uL 15-500 normal Not Available [facility] [address] [facility], [address], 02/17/2021 07:17:45 02/17/20 21 02/17/2021 CBC (INCL UDES DIFF/ PLT) absolute basophils 67 cells /uL 0-200 normal Not Available [facility] [address], [place], [address], 02/17/2021 07:17:45 02/17/20 21 02/17/2021 CBC (INCL UDES DIFF/ PLT) neutrophils 61.7 % normal Not Available [facility] [address] [facility], [place], [address], 02/17/2021 07:17:45 02/17/20 21 02/17/2021 CBC (INCL UDES DIFF/ PLT) lymphocytes 25.5 % normal Not Available [facility] [address] [facility], [place], [address], 02/17/2021 07:17:45 02/17/20 21 02/17/2021 CBC (INCL UDES DIFF/ PLT) monocytes 10.5 % normal Not Available [facility] [address] [facility], [place], [address], 02/17/2021 07:17:45 02/17/20 21 02/17/2021 CBC (INCL UDES DIFF/ PLT) eosinophils 1.4 % normal Not Available [facility] [address] [facility] [address], [place], [address], 02/17/2021 07:17:45 02/17/20 21 02/17/2021 CBC (INCL UDES DIFF/ PLT) basophils 0.9 % normal Not Available [facility] [place] [address], [place], [address], 02/17/2021 07:17:45 04/29/19 22 04/29/2021 COVID 19, JULIO (GRAV ITY) note Unles s other lerma noted testi ng perfo rmed at: [facility] [address] [place] [address] [phone] Joseph abrams MD CLIA: [id number] Not Available [facility] (Lab Registration) [address] [place], [address], 04/30/2021 18:39:23 04/29/19 22 04/30/2021 COVID 19, JULIO (GRAV ITY) covid 19, JULIO (gravity) DETECT ED not detect ed delta Not Available [facility] (Lab Registration) [address] [place], [address], 04/30/2021 18:39:23 05/28/19 22 05/27/2021 COVID 19, JULIO (GRAV ITY) note Unles s other lerma noted testi ng perfo rmed at: [facility] [address] [place] [address] [phone] Joseph abrams MD CLIA: [id number] Not Available [facility] (Lab Registration) [address] [place], [address], 05/28/2021 09:25:52 05/28/19 22 05/28/2021 COVID 19, JULIO (GRAV ITY) covid 19, JULIO (gravity) NOT DETECT ED not detect ed Not Available [facility] (Lab Registration) [address] [place], [address], 05/28/2021 09:25:52 05/14/19 23 05/15/2022 LIPID PANEL , STAND ABBI cholesterol, total 198 mg/dL <200 normal Not Available [facility] [address] [facility], [place], [address], 05/15/2022 07:46:09 05/14/19 23 05/15/2022 LIPID PANEL , STAND ABBI HDL cholesterol 32 mg/dL > or = 40 low Not Available [facility] [address], [place], [address], 05/15/2022 07:46:09 05/14/19 23 05/15/2022 LIPID PANEL , STAND ABBI triglyceride s 356 mg/dL <150 high If a non-f astin g speci men was colle cted, consi dora repea t trigl yceri de testi ng on a fasti ng speci men if clini demarcus indic ated. Carlton montes et al. J. of Clin. Lipid ol. 2015; 9:129 -169. Not Available [facility] [place] [facility] [address], [place], [address], 05/15/2022 07:46:09 05/14/19 23 05/15/2022 LIPID PANEL , STAND ABBI LDL-choleste rol 115 mg/dL _(fabricio c) high Refer ence range : <100 Fam able range <100 mg/dL for prima ry preve ntion ; <70 mg/dL for patie nts with CHD or diabe tic patie nts with > or = 2 CHD risk facto rs. LDL-C is now calcu lated using the Anali n-Hop kins calcu yessenia n, which is a valid ated novel dae salinas r accur acy than the Fried saranya equat ion in the estim ation of LDL-C . Anali shabazz SS et al. NEYMAR. 2013; 310(1 9): 2061- 2068 (http ://ed ucati on.Qu Kamille lavarez tics. com/f aq/FA Q164) Not Available [facility] [place] [facility] [address], [place], [address], 05/15/2022 07:46:09 05/14/19 23 05/15/2022 LIPID PANEL , STAND ABBI chol/HDLC ratio 6.2 (calc ) <5.0 high Not Available [facility] [place] [facility] [address], [place], [address], 05/15/2022 07:46:09 05/14/1905/15/2022 LIPID PANEL , STAND ABBI non HDL cholesterol 166 mg/dL _(fabricio c) <130 high For patie nts with diabe carmen plus 1 major ASCVD risk facto r, treat ing to a non-H DL-C goal of <100 mg/dL (LDL- C of <70 mg/dL ) is consi dered a thera peuti c optio n. Not Available [facility] [address] [place], [address], 05/15/2022 07:46:09 05/14/1905/15/2022 COMPR EHENS MIKE METAB OLIC PANEL glucose 77 mg/dL 65-99 normal Fasti ng refer ence inter adriel Not Available [facility] [address] [place], [address], 05/15/2022 07:46:10 05/14/1905/15/2022 COMPR EHENS MIKE METAB OLIC PANEL urea nitrogen (BUN) 18 mg/dL 7-25 normal Not Available [facility] [address] [place], [address], 05/15/2022 07:46:10 05/14/1905/15/2022 COMPR EHENS MIKE METAB OLIC PANEL creatinine 1.15 mg/dL 0.60-1 .29 normal Not Available [facility] [address] [place], [address], 05/15/2022 07:46:10 05/14/19 23 05/15/2022 COMPR EHENS MIKE METAB OLIC PANEL eGFR 78 mL/mi n/1.7 3m2 > or = 60 normal The eGFR is based on the CKD-E PI 2020 equat ion. To calcu late the new eGFR from a previ ous Creat inine or Cysta tin C resul t, go to https ://rosa waters.edwardo bell/vince quigley s/ kdoqi /gfr% 5Fcal culat or Not Available [facility] [place] [facility] [address] [facility] [place], [address], 05/15/2022 07:46:10 05/14/19 23 05/15/2022 COMPR EHENS MIKE METAB OLIC PANEL BUN/creatini ne ratio NOT APPLIC ABLE (calc ) 6-22 Not Available [facility] [address] [place], [address], 05/15/2022 07:46:10 05/14/19 23 05/15/2022 COMPR EHENS MIKE METAB OLIC PANEL sodium 139 mmol/ L 135-14 6 normal Not Available [facility] [place] [address] [place], [address], 05/15/2022 07:46:10 05/14/19 23 05/15/2022 COMPR EHENS MIKE METAB OLIC PANEL potassium 3.9 mmol/ L 3.5-5. 3 normal Not Available [facility] [address] [facility] [place], [address], 05/15/2022 07:46:10 05/14/19 23 05/15/2022 COMPR EHENS MIKE METAB OLIC PANEL chloride 104 mmol/ L 98-110 normal Not Available [facility] [address] [place], [address], 05/15/2022 07:46:10 05/14/19 23 05/15/2022 COMPR EHENS MIKE METAB OLIC PANEL carbon dioxide 26 mmol/ L 20-32 normal Not Available [facility] [address] [place], [address], 05/15/2022 07:46:10 05/14/19 23 05/15/2022 COMPR EHENS MIKE METAB OLIC PANEL calcium 9.7 mg/dL 8.6-10 .3 normal Not Available [facility] [address] [place], [address], 05/15/2022 07:46:10 05/14/19 23 05/15/2022 COMPR EHENS MIKE METAB OLIC PANEL protein, total 7.0 g/dL 6.1-8. 1 normal Not Available [facility] [address] [facility] [place], [address], 05/15/2022 07:46:10 05/14/19 23 05/15/2022 COMPR EHENS MIKE METAB OLIC PANEL albumin 4.5 g/dL 3.6-5. 1 normal Not Available [facility] [address] [facility] [place], [address], 05/15/2022 07:46:10 05/14/19 23 05/15/2022 COMPR EHENS MIKE METAB OLIC PANEL globulin 2.5 g/dL_ (calc ) 1.9-3. 7 normal Not Available [facility] [address] [place], [address], 05/15/2022 07:46:10 05/14/19 23 05/15/2022 COMPR EHENS MIKE METAB OLIC PANEL albumin/glob ulin ratio 1.8 (calc ) 1.0-2. 5 normal Not Available [facility] [address] [facility] [place], [address], 05/15/2022 07:46:10 05/14/19 23 05/15/2022 COMPR EHENS MIKE METAB OLIC PANEL bilirubin, total 0.6 mg/dL 0.2-1. 2 normal Not Available [facility] [address] [facility] [place], [address], 05/15/2022 07:46:10 05/14/19 23 05/15/2022 COMPR EHENS MIKE METAB OLIC PANEL alkaline phosphatase 63 U/L 36-130 normal Not Available [facility] [employer] [facility] [address] [place], [address], 05/15/2022 07:46:10 05/14/19 23 05/15/2022 COMPR EHENS MIKE METAB OLIC PANEL AST 16 U/L 10-40 normal Not Available [facility] [address], [place], [address], 05/15/2022 07:46:10 05/14/19 23 05/15/2022 COMPR EHENS MIKE METAB OLIC PANEL ALT 18 U/L 9-46 normal Not Available [facility] [address] [place], [address], 05/15/2022 07:46:10 05/14/1905/15/2022 HEMOG LOBIN A1C hemoglobin A1C 5.7 %_of_ total _HGB <5.7 high For someo ne witho ut known diabe carmen, a hemog lobin A1c value betwe en 5.7% and 6.4% is consi stent with predi abete s and shoul d be confi rmed with a follo w-up test. For someo ne with known diabe carmen, a value <7% indic ates that their diabe carmen is well contr olled . A1c targe ts shoul d be indiv idual ized based on durat ion of diabe carmen, age, comor bid condi tions , and other consi derat ions. This assay resul t is consi stent with an incre ased risk of diabe carmen. Curre ntly, no conse nsus exist s regar ding use of hemog lobin A1c for diagn osis of diabe carmen for child valerie. Not Available [facility] [address] [place], [address], 05/15/2022 07:46:11 05/14/1905/15/2022 URIC ACID uric acid 7.8 mg/dL 4.0-8. 0 normal Thera pedennyi c kimberly t for gout patie nts: <6.0 mg/dL Not Available [facility] [address] [facility] [place], [address], 05/15/2022 07:46:11 05/14/1905/15/2022 TSH TSH 7.00 mIU/L 0.40-4 .50 high Not Available [facility] [address] [facility] [place], [address], 05/15/2022 07:46:11 05/14/19 23 05/15/2022 CBC (INCL UDES DIFF/ PLT) white blood cell count 6.7 thous and/u L 3.8-10 .8 normal Not Available [facility] [address] [facility] [place], [address], 05/15/2022 07:46:12 05/14/19 23 05/15/2022 CBC (INCL UDES DIFF/ PLT) red blood cell count 5.07 dian on/uL 4.20-5 .80 normal Not Available [facility] [address] [facility] [place], [address], 05/15/2022 07:46:12 05/14/19 23 05/15/2022 CBC (INCL UDES DIFF/ PLT) hemoglobin 15.5 g/dL 13.2-1 7.1 normal Not Available [facility] [address] [facility] [place], [address], 05/15/2022 07:46:12 05/14/1905/15/2022 CBC (INCL UDES DIFF/ PLT) hematocrit 45.5 % 38.5-5 0.0 normal Not Available [facility] [address] [facility] [place], [address], 05/15/2022 07:46:12 05/14/19 23 05/15/2022 CBC (INCL UDES DIFF/ PLT) MCV 89.7 fL 80.0-1 00.0 normal Not Available [facility] [address] [place], [address], 05/15/2022 07:46:12 05/14/1905/15/2022 CBC (INCL UDES DIFF/ PLT) MCH 30.6 pg 27.0-3 3.0 normal Not Available [facility] [place] [facility] [address] [facility], [address], 05/15/2022 07:46:12 05/14/1905/15/2022 CBC (INCL UDES DIFF/ PLT) MCHC 34.1 g/dL 32.0-3 6.0 normal Not Available [facility] [place] [facility] [address] [facility] [place], [address], 05/15/2022 07:46:12 05/14/19 23 05/15/2022 CBC (INCL UDES DIFF/ PLT) RDW 13.9 % 11.0-1 5.0 normal Not Available [facility] [place] [facility] [address], [place], [address], 05/15/2022 07:46:12 05/14/1905/15/2022 CBC (INCL UDES DIFF/ PLT) platelet count 208 thous and/u L 140-40 0 normal Not Available [facility] [address] [facility] [place], [address], 05/15/2022 07:46:12 05/14/1905/15/2022 CBC (INCL UDES DIFF/ PLT) MPV 10.1 fL 7.5-12 .5 normal Not Available [facility] [place] [facility] [address] [facility] [address], [place], [address], 05/15/2022 07:46:12 05/14/19 23 05/15/2022 CBC (INCL UDES DIFF/ PLT) absolute neutrophils 4007 cells /uL 1500-7 800 normal Not Available [facility] [address] [facility] [place], [address], 05/15/2022 07:46:12 05/14/19 23 05/15/2022 CBC (INCL UDES DIFF/ PLT) absolute lymphocytes 1789 cells /uL 850-39 00 normal Not Available [facility] [place] [facility] [address], [place], [address], 05/15/2022 07:46:12 05/14/19 23 05/15/2022 CBC (INCL UDES DIFF/ PLT) absolute monocytes 757 cells /uL 200-95 0 normal Not Available [facility] [address] [address] [facility], [place], [address], 05/15/2022 07:46:12 05/14/19 23 05/15/2022 CBC (INCL UDES DIFF/ PLT) absolute eosinophils 87 cells /uL 15-500 normal Not Available [facility] [place] [address] [address] [facility], [place], [address], 05/15/2022 07:46:12 05/14/19 23 05/15/2022 CBC (INCL UDES DIFF/ PLT) absolute basophils 60 cells /uL 0-200 normal Not Available [facility] [place] [facility] [address] [facility] [address] [facility], [place], [address], 05/15/2022 07:46:12 05/14/19 23 05/15/2022 CBC (INCL UDES DIFF/ PLT) neutrophils 59.8 % normal Not Available [facility] [place] [facility] [address], [place], [address], 05/15/2022 07:46:12 05/14/19 23 05/15/2022 CBC (INCL UDES DIFF/ PLT) lymphocytes 26.7 % normal Not Available [facility] [place] [facility] [address] [facility] [address] [facility], [place], [address], 05/15/2022 07:46:12 05/14/19 23 05/15/2022 CBC (INCL UDES DIFF/ PLT) monocytes 11.3 % normal Not Available [facility] [place] [facility] [address] [facility], [address], 05/15/2022 07:46:12 05/14/19 23 05/15/2022 CBC (INCL UDES DIFF/ PLT) eosinophils 1.3 % normal Not Available [facility] [place] [facility] [address] [facility] [place], [address], 05/15/2022 07:46:12 05/14/19 23 05/15/2022 CBC (INCL UDES DIFF/ PLT) basophils 0.9 % normal Not Available [facility] [facility] [address] [facility] [place], [address], 05/15/2022 07:46:12 10/08/19 24 10/09/2023 LIPID PANEL , STAND ABBI cholesterol, total 207 mg/dL <200 high Not Available [facility] [facility] [address] [facility] [place], [address], 10/09/2023 08:57:22 10/08/19 24 10/09/2023 LIPID PANEL , STAND ABBI HDL cholesterol 30 mg/dL > or = 40 low Not Available [facility] [address] [facility] [place], [address], 10/09/2023 08:57:22 10/08/19 24 10/09/2023 LIPID PANEL , STAND ABBI triglyceride s 299 mg/dL <150 high If a non-f astin g speci men was colle cted, consi dora repea t trigl yceri de testi ng on a fasti ng speci men if clini demarcus indic ated. Carlton montes et al. J. of Clin. Lipid ol. 2015; 9:129 -169. Not Available [facility] [address] [facility] [place], [address], 10/09/2023 08:57:22 10/08/19 10/09/2023 LIPID PANEL , STAND ABBI LDL-choleste rol 134 mg/dL _(fabricio c) high Refer ence range : <100 Fam able range <100 mg/dL for prima ry preve ntion ; <70 mg/dL for patie nts with CHD or diabe tic patie nts with > or = 2 CHD risk facto rs. LDL-C is now calcu lated using the Anali n-Hop kins calcu yessenia n, which is a valid ated novel metho d provi ding rita r accur acy than the Fried saranya equat ion in the estim ation of LDL-C . Anali n SS et al. NYEMAR. 2013; 310(1 9): 2061- 2068 (http ://ed ucati on.[employer]. com/f aq/FA Q164) Not Available [facility] [place] [facility] [address], [place], [address], 10/09/2023 08:57:22 10/08/1910/09/2023 LIPID PANEL , STAND ABBI chol/HDLC ratio 6.9 (calc ) <5.0 high Not Available [facility] [place] [facility] [address] [facility] [facility], [place], [address], 10/09/2023 08:57:22 10/08/19 24 10/09/2023 LIPID PANEL , STAND ABBI non HDL cholesterol 177 mg/dL _(fabricio c) <130 high For patie nts with diabe carmen plus 1 major ASCVD risk facto r, treat ing to a non-H DL-C goal of <100 mg/dL (LDL- C of <70 mg/dL ) is consi dered a thera peuti c optio n. Not Available [facility] [place] [facility] [address], [place], [address], 10/09/2023 08:57:22 10/08/1910/09/2023 COMPR EHENS MIKE METAB OLIC PANEL glucose 94 mg/dL 65-99 normal Fasti ng refer ence inter adriel Not Available [facility] [place] [facility] [address] [place], [address], 10/09/2023 08:57:23 10/08/19 24 10/09/2023 COMPR EHENS MIKE METAB OLIC PANEL urea nitrogen (BUN) 15 mg/dL 7-25 normal Not Available [facility] [address] [place], [address], 10/09/2023 08:57:23 10/08/19 24 10/09/2023 COMPR EHENS MIKE METAB OLIC PANEL creatinine 1.11 mg/dL 0.70-1 .30 normal Not Available [facility] [address] [facility] [place], [address], 10/09/2023 08:57:23 10/08/19 24 10/09/2023 COMPR EHENS MIKE METAB OLIC PANEL eGFR 81 mL/mi n/1.7 3m2 > or = 60 normal Not Available [facility] [address] [facility] [place], [address], 10/09/2023 08:57:23 10/08/1910/09/2023 COMPR EHENS MIKE METAB OLIC PANEL BUN/creatini ne ratio SEE NOTE: (calc ) 6-22 Not Repor katelin: BUN and Creat inine are withi n refer ence range . Not Available [facility] [address] [facility] [place], [address], 10/09/2023 08:57:23 10/08/19 24 10/09/2023 COMPR EHENS MIKE METAB OLIC PANEL sodium 139 mmol/ L 135-14 6 normal Not Available [facility] [address] [place], [address], 10/09/2023 08:57:23 10/08/19 24 10/09/2023 COMPR EHENS MIKE METAB OLIC PANEL potassium 4.3 mmol/ L 3.5-5. 3 normal Not Available [facility] [address] [facility] [place], [address], 10/09/2023 08:57:23 10/08/19 24 10/09/2023 COMPR EHENS MIKE METAB OLIC PANEL chloride 103 mmol/ L 98-110 normal Not Available [facility] [address] [facility] [place], [address], 10/09/2023 08:57:23 10/08/19 24 10/09/2023 COMPR EHENS MIKE METAB OLIC PANEL carbon dioxide 27 mmol/ L 20-32 normal Not Available [facility] [address] [facility] [place], [address], 10/09/2023 08:57:23 10/08/19 24 10/09/2023 COMPR EHENS MIKE METAB OLIC PANEL calcium 9.4 mg/dL 8.6-10 .3 normal Not Available [facility] [address] [facility] [place], [address], 10/09/2023 08:57:23 10/08/1910/09/2023 COMPR EHENS MIKE METAB OLIC PANEL protein, total 6.6 g/dL 6.1-8. 1 normal Not Available [facility] [address] [facility] [place], [address], 10/09/2023 08:57:23 10/08/19 24 10/09/2023 COMPR EHENS MIKE METAB OLIC PANEL albumin 4.2 g/dL 3.6-5. 1 normal Not Available [facility] [address] [place], [address], 10/09/2023 08:57:23 10/08/19 24 10/09/2023 COMPR EHENS MIKE METAB OLIC PANEL globulin 2.4 g/dL_ (calc ) 1.9-3. 7 normal Not Available [facility] [address] [facility] [place], [address], 10/09/2023 08:57:23 10/08/19 24 10/09/2023 COMPR EHENS MIKE METAB OLIC PANEL albumin/glob ulin ratio 1.8 (calc ) 1.0-2. 5 normal Not Available [facility] [address] [place], [address], 10/09/2023 08:57:23 10/08/19 24 10/09/2023 COMPR EHENS MIKE METAB OLIC PANEL bilirubin, total 0.7 mg/dL 0.2-1. 2 normal Not Available [facility] [address] [place], [address], 10/09/2023 08:57:23 10/08/19 24 10/09/2023 COMPR EHENS MIKE METAB OLIC PANEL alkaline phosphatase 55 U/L 35-144 normal Not Available [facility] [place] [facility] [address] [place], [address], 10/09/2023 08:57:23 10/08/19 24 10/09/2023 COMPR EHENS MIKE METAB OLIC PANEL AST 19 U/L 10-35 normal Not Available [facility] [address] [place], [address], 10/09/2023 08:57:23 10/08/19 24 10/09/2023 COMPR EHENS MIKE METAB OLIC PANEL ALT 22 U/L 9-46 normal Not Available [facility] [place] [facility] [address] [place], [address], 10/09/2023 08:57:23 10/08/19 24 10/09/2023 HEMOG LOBIN A1C hemoglobin A1C 5.7 %_of_ total _HGB <5.7 high For someo ne witho ut known diabe carmen, a hemog lobin A1c value betwe en 5.7% and 6.4% is consi stent with predi abete s and shoul d be confi rmed with a follo w-up test. For someo ne with known diabe carmen, a value <7% indic ates that their diabe carmen is well contr olled . A1c targe ts shoul d be indiv idual ized based on durat ion of diabe carmen, age, comor bid condi tions , and other consi derat ions. This assay resul t is consi stent with an incre ased risk of diabe carmen. Curre ntly, no conse nsus exist s regar ding use of hemog lobin A1c for diagn osis of diabe carmen for child valerie. This test was perfo rmed on the [facility] c503 platf orm. Effec tive 4, a kierra rose in test platf orms from the [facility] [employer] t[employer] to the [facility] catarino c503 may have shift ed HbA1c resul ts merlene red to histo rical resul ts. Based on labor atory valid ation testi ng condu cted at [facility] , the [facility] platf orm relat mike to the Genome platf orm had an avera ge incre ase in HbA1c value of < or = 0.3%. This diffe rence is withi n accep katelin varia bilit y estab lishe d by the Nat[employer] hemog lobin Stand ardiz ation Progr am. Note that not all indiv idual s will have had a shift in their resul ts and direc t merlene rison s betwe en histo rical and curre nt resul ts for testi ng condu cted on diffe rent platf orms is not recom wu d. Not Available [facility] [place] [facility] [address] [facility] [place], [address], 10/09/2023 08:57:24 10/08/19 24 10/09/2023 URIC ACID uric acid 8.0 mg/dL 4.0-8. 0 normal Thera peuti c targe t for gout patie nts: <6.0 mg/dL Not Available [facility] [place] [facility] [address] [place], [address], 10/09/2023 08:57:24 10/08/1910/09/2023 TSH TSH 7.44 mIU/L 0.40-4 .50 high Not Available [facility] [address] [facility] [place], [address], 10/09/2023 08:57:24 10/08/19 24 10/09/2023 CBC (INCL UDES DIFF/ PLT) white blood cell count 6.8 thous and/u L 3.8-10 .8 normal Not Available [facility] [address] [place], [address], 10/09/2023 08:57:25 10/08/19 24 10/09/2023 CBC (INCL UDES DIFF/ PLT) red blood cell count 5.18 dian on/uL 4.20-5 .80 normal Not Available [facility] [address] [facility] [place], [address], 10/09/2023 08:57:25 10/08/1910/09/2023 CBC (INCL UDES DIFF/ PLT) hemoglobin 15.8 g/dL 13.2-1 7.1 normal Not Available [facility] [address] [facility] [place], [address], 10/09/2023 08:57:25 10/08/1910/09/2023 CBC (INCL UDES DIFF/ PLT) hematocrit 49.1 % 38.5-5 0.0 normal Not Available [facility] [address] [place], [address], 10/09/2023 08:57:25 10/08/19 24 10/09/2023 CBC (INCL UDES DIFF/ PLT) MCV 94.8 fL 80.0-1 00.0 normal Not Available [facility] [address] [facility] [place], [address], 10/09/2023 08:57:25 10/08/19 24 10/09/2023 CBC (INCL UDES DIFF/ PLT) MCH 30.5 pg 27.0-3 3.0 normal Not Available [facility] [place] [facility] [address], [place], [address], 10/09/2023 08:57:25 10/08/1910/09/2023 CBC (INCL UDES DIFF/ PLT) MCHC 32.2 g/dL 32.0-3 6.0 normal Not Available [facility] [place] [facility] [address] [facility] [address], [place], [address], 10/09/2023 08:57:25 10/08/1910/09/2023 CBC (INCL UDES DIFF/ PLT) RDW 13.8 % 11.0-1 5.0 normal Not Available [facility] [place] [facility] [address] [facility] [address], [place], [address], 10/09/2023 08:57:25 10/08/1910/09/2023 CBC (INCL UDES DIFF/ PLT) platelet count 210 thous and/u L 140-40 0 normal Not Available [facility] [place] [facility] [address] [address], [place], [address], 10/09/2023 08:57:25 10/08/1910/09/2023 CBC (INCL UDES DIFF/ PLT) MPV 9.9 fL 7.5-12 .5 normal Not Available [facility] [place] [facility] [address] [facility] [facility] [address], [place], [address], 10/09/2023 08:57:25 10/08/1910/09/2023 CBC (INCL UDES DIFF/ PLT) absolute neutrophils 4624 cells /uL 1500-7 800 normal Not Available [facility] [place] [facility] [address] [facility] [address] [facility], [place], [address], 10/09/2023 08:57:25 10/08/19 24 10/09/2023 CBC (INCL UDES DIFF/ PLT) absolute lymphocytes 1421 cells /uL 850-39 00 normal Not Available [facility] [place] [facility] [address] [facility] [place], [address], 10/09/2023 08:57:25 10/08/19 24 10/09/2023 CBC (INCL UDES DIFF/ PLT) absolute monocytes 524 cells /uL 200-95 0 normal Not Available [facility] [place] [facility] [address] [facility] [address], [place], [address], 10/09/2023 08:57:25 10/08/1910/09/2023 CBC (INCL UDES DIFF/ PLT) absolute eosinophils 150 cells /uL 15-500 normal Not Available [facility] [place] [facility] [address] [facility] [place], [address], 10/09/2023 08:57:25 10/08/19 24 10/09/2023 CBC (INCL UDES DIFF/ PLT) absolute basophils 82 cells /uL 0-200 normal Not Available [facility] [place] [facility] [address] [facility] [address], [place], [address], 10/09/2023 08:57:25 10/08/19 24 10/09/2023 CBC (INCL UDES DIFF/ PLT) neutrophils 68 % normal Not Available [facility] [place] [facility] [address] [facility] [facility], [place], [address], 10/09/2023 08:57:25 10/08/19 24 10/09/2023 CBC (INCL UDES DIFF/ PLT) lymphocytes 20.9 % normal Not Available [facility] [place] [facility] [address] [facility] [address], [place], [address], 10/09/2023 08:57:25 10/08/19 24 10/09/2023 CBC (INCL UDES DIFF/ PLT) monocytes 7.7 % normal Not Available [facility] [place] [facility] [address] [place], [address], 10/09/2023 08:57:25 10/08/19 24 10/09/2023 CBC (INCL UDES DIFF/ PLT) eosinophils 2.2 % normal Not Available [facility] [place] [facility] [address] [place], [address], 10/09/2023 08:57:25 10/08/19 24 10/09/2023 CBC (INCL UDES DIFF/ PLT) basophils 1.2 % normal Not Available [facility] [place] [facility] [address] [place], [address], 10/09/2023 08:57:25 10/08/19 24 10/09/2023 PSA, TOTAL PSA, total 0.67 NG/mL < or = 4.00 normal The total PSA value from this assay syste m is stand ardiz ed again st the WHO stand abbi. The test resul t will be appro ximat miesha 20% lower when merlene red to the equim olar- stand ardiz ed total PSA (Patel man Coult er). Merlene rison of seria l PSA resul ts shoul d be inter prete d with this fact in mind. This test was perfo rmed using the [employer]uck chemi lumin escen t metho d. Value s obtai elizabeth from diffe rent assay metho ds canno t be used inter lozada eably . PSA level s, regar dless of value , shoul d not be inter prete d as absol [place] evide nce of the prese nce or absen ce of disea se. Not Available [facility] [place] [facility] [address] [facility] [place], [address], 10/09/2023 08:57:25 03/30/19 25 04/02/2024 LIPID PANEL , STAND ABBI cholesterol, total 218 mg/dL <200 high Not Available [facility] [place] [facility] [address] [place], [address], 04/02/2024 12:40:12 03/30/19 25 04/02/2024 LIPID PANEL , STAND ABBI HDL cholesterol 33 mg/dL > or = 40 low Not Available [facility] [place] [facility] [address] [facility], [place], [address], 04/02/2024 12:40:12 03/30/19 25 04/02/2024 LIPID PANEL , STAND ABBI triglyceride s 460 mg/dL <150 high If a non-f astin g speci men was colle cted, consi dora repea t trigl yceri de testi ng on a fasti ng speci men if clini demarcus indic ated. Carlton montes et al. J. of Clin. Lipid ol. 2015; 9:129 -169. Not Available [facility] [place] [facility] [address] [facility], [place], [address], 04/02/2024 12:40:12 03/30/19 25 04/02/2024 LIPID PANEL , STAND ABBI LDL-choleste rol mg/dL _(fabricio c) LDL nery stero l not calcu lated . Trigl yceri de level s great er than 400 mg/dL inval idate calcu lated LDL resul ts. Refer ence range : <100 Fam able range <100 mg/dL for prima ry preve ntion ; <70 mg/dL for patie nts with CHD or diabe tic patie nts with > or = 2 CHD risk facto rs. LDL-C is now calcu lated using the Anali n-Hop kins calcu latio n, which is a valid ated novel metho d provi ding rita r accur acy than the Fried saranya equat ion in the estim ation of LDL-C . Anali shabazz SS et al. NEYMAR. 2013; 310(1 9): 2061- 2068 (http ://ed ashleyati on.Qu estDi [employer]Near[employer]. com/f aq/FA Q164) Not Available [facility] [place] [facility] [address] [facility], [place], [address], 04/02/2024 12:40:12 03/30/19 25 04/02/2024 LIPID PANEL , STAND ABBI chol/HDLC ratio 6.6 (calc ) <5.0 high Not Available [facility] [place] [facility] [address] [place], [address], 04/02/2024 12:40:12 03/30/19 25 04/02/2024 LIPID PANEL , STAND ABBI non HDL cholesterol 185 mg/dL _(fabricio c) <130 high For patie nts with diabe carmen plus 1 major ASCVD risk facto r, treat ing to a non-H DL-C goal of <100 mg/dL (LDL- C of <70 mg/dL ) is consi lissette a freddie early c optio n. Not Available [facility] [address] [place], [address], 04/02/2024 12:40:12 03/30/19 25 04/02/2024 COMPR EHENS MIKE METAB OLIC PANEL glucose 98 mg/dL 65-139 normal Non-f astin g refer ence inter adriel Not Available [facility] [place] [facility] [address] [place], [address], 04/02/2024 12:40:13 03/30/19 25 04/02/2024 COMPR EHENS MIKE METAB OLIC PANEL urea nitrogen (BUN) 15 mg/dL 7-25 normal Not Available [facility] [address] [place], [address], 04/02/2024 12:40:13 03/30/19 25 04/02/2024 COMPR EHENS MIKE METAB OLIC PANEL creatinine 1.19 mg/dL 0.70-1 .30 normal Not Available [facility] [address] [place], [address], 04/02/2024 12:40:13 03/30/19 25 04/02/2024 COMPR EHENS MIKE METAB OLIC PANEL eGFR 74 mL/mi n/1.7 3m2 > or = 60 normal Not Available [facility] [address] [place], [address], 04/02/2024 12:40:13 03/30/19 25 04/02/2024 COMPR EHENS MIKE METAB OLIC PANEL BUN/creatini ne ratio SEE NOTE: (calc ) 6-22 Not Repor katelin: BUN and Creat inine are withi n refer ence range . Not Available [facility] [place] [facility] [address] [place], [address], 04/02/2024 12:40:13 03/30/19 25 04/02/2024 COMPR EHENS MIKE METAB OLIC PANEL sodium 141 mmol/ L 135-14 6 normal Not Available [facility] [address] [place], [address], 04/02/2024 12:40:13 03/30/19 25 04/02/2024 COMPR EHENS MIKE METAB OLIC PANEL potassium 4.2 mmol/ L 3.5-5. 3 normal Not Available [facility] [address] [place], [address], 04/02/2024 12:40:13 03/30/19 25 04/02/2024 COMPR EHENS MIKE METAB OLIC PANEL chloride 104 mmol/ L 98-110 normal Not Available [facility] [address] [place], [address], 04/02/2024 12:40:13 03/30/19 25 04/02/2024 COMPR EHENS MIKE METAB OLIC PANEL carbon dioxide 26 mmol/ L 20-32 normal Not Available [facility] [address] [place], [address], 04/02/2024 12:40:13 03/30/19 25 04/02/2024 COMPR EHENS MIKE METAB OLIC PANEL calcium 10.1 mg/dL 8.6-10 .3 normal Not Available [facility] [place] [facility] [address] [facility] [place], [address], 04/02/2024 12:40:13 03/30/19 25 04/02/2024 COMPR EHENS MIKE METAB OLIC PANEL protein, total 7.1 g/dL 6.1-8. 1 normal Not Available [facility] [address] [facility] [place], [address], 04/02/2024 12:40:13 03/30/19 25 04/02/2024 COMPR EHENS MIKE METAB OLIC PANEL albumin 4.6 g/dL 3.6-5. 1 normal Not Available [facility] [address] [facility] [place], [address], 04/02/2024 12:40:13 03/30/19 25 04/02/2024 COMPR EHENS MIKE METAB OLIC PANEL globulin 2.5 g/dL_ (calc ) 1.9-3. 7 normal Not Available [facility] [address] [facility] [place], [address], 04/02/2024 12:40:13 03/30/19 25 04/02/2024 COMPR EHENS MIKE METAB OLIC PANEL albumin/glob ulin ratio 1.8 (calc ) 1.0-2. 5 normal Not Available [facility] [address] [facility] [place], [address], 04/02/2024 12:40:13 03/30/19 25 04/02/2024 COMPR EHENS MIKE METAB OLIC PANEL bilirubin, total 0.5 mg/dL 0.2-1. 2 normal Not Available [facility] [address] [facility] [place], [address], 04/02/2024 12:40:13 03/30/19 25 04/02/2024 COMPR EHENS MIKE METAB OLIC PANEL alkaline phosphatase 73 U/L 35-144 normal Not Available [facility] [place] [facility] [address] [facility], [address], 04/02/2024 12:40:13 03/30/19 25 04/02/2024 COMPR EHENS MIKE METAB OLIC PANEL AST 17 U/L 10-35 normal Not Available [facility] [place] [facility] [address] [facility], [address], 04/02/2024 12:40:13 03/30/19 25 04/02/2024 COMPR EHENS MIKE METAB OLIC PANEL ALT 25 U/L 9-46 normal Not Available [facility] [place] [facility] [address] [facility] [place], [address], 04/02/2024 12:40:13 03/30/1904/02/2024 HEMOG LOBIN A1C hemoglobin A1C 5.9 %_of_ total _HGB <5.7 high For someo ne witho ut known diabe carmen, a hemog lobin A1c value betwe en 5.7% and 6.4% is consi stent with predi abete s and shoul d be confi rmed with a follo w-up test. For someo ne with known diabe carmen, a value <7% indic ates that their diabe carmen is well contr olled . A1c targe ts shoul d be indiv idual ized based on durat ion of diabe carmen, age, comor bid condi tions , and other consi derat ions. This assay resul t is consi stent with an incre ased risk of diabe carmen. Curre ntly, no conse nsus exist s regar ding use of hemog lobin A1c for diagn osis of diabe carmen for child valerie. Not Available [facility] [address] [facility], [place], [address], 04/02/2024 12:40:14 03/30/1904/02/2024 TSH TSH 8.79 mIU/L 0.40-4 .50 high Not Available [facility] [place] [facility] [address] [place], [address], 04/02/2024 12:40:15 03/30/19 25 04/02/2024 SED RATE BY MODIF IED WESTE RGREN sed rate by modified westergren 9 mm/h < or = 20 normal Not Available [facility] [place] [facility] [address] [place], [address], 04/02/2024 12:40:15 03/30/19 25 04/02/2024 C-JOSIE CTIVE PROTE IN C-reactive protein 5.3 mg/L <8.0 normal Not Available [facility] [place] [facility] [address] [place], [address], 04/02/2024 12:40:16 03/30/19 25 04/02/2024 CULTU RE, THROA T culture, throat CULTU RE, THROA T Micro Numbe r: [id number] Test Statu s: Final Speci men Sourc e: Throa t Speci men Quali ty: Adequ ate Resul t: No oroph aryng eal patho gens recov ered. Not Available [facility] [place] [facility] [address] [place], [address], 04/02/2024 12:40:17 03/30/1903/30/2024 rapid strep group A, throa t rapid strep negati ve Not Available [facility] [address] [place], [address], 03/30/2024 14:51:30 11/04/19 25 11/04/2024 LIPID PANEL , STAND ABBI cholesterol, total 201 mg/dL <200 high Not Available [facility] [place] [facility] [address] [place], [address], 11/04/2024 07:37:15 11/04/19 25 11/04/2024 LIPID PANEL , STAND ABBI HDL cholesterol 31 mg/dL > or = 40 low Not Available [facility] [place] [facility] [address], [place], [address], 11/04/2024 07:37:15 11/04/19 25 11/04/2024 LIPID PANEL , STAND ABBI triglyceride s 320 mg/dL <150 high If a non-f astin g speci men was colle cted, consi dora repea t trigl yceri de testi ng on a fasti ng speci men if clini demarcus indic ated. Carlton montes et al. J. of Clin. Lipid ol. 2015; 9:129 -169. Not Available [facility] [place] [facility] [address] [facility], [place], [address], 11/04/2024 07:37:15 11/04/19 25 11/04/2024 LIPID PANEL , STAND ABBI LDL-choleste rol 124 mg/dL _(fabricio c) high Refer ence range : <100 Fam able range <100 mg/dL for prima ry preve ntion ; <70 mg/dL for patie nts with CHD or diabe tic patie nts with > or = 2 CHD risk facto rs. LDL-C is now calcu lated using the Anali n-Hop kins calcu latesequiel n, which is a valid ated novel metho d provi ding rita r accur acy than the Fried saranya equat ion in the estim ation of LDL-C . Anali shabazz SS et al. NEYMAR. 2013; 310(1 9): 2061- 2068 (http ://ed ucati on.Qu estDi 5211game. com/f aq/FA Q164) Not Available [facility] [place] [facility] [address], [place], [address], 11/04/2024 07:37:15 11/04/19 25 11/04/2024 LIPID PANEL , STAND ABBI chol/HDLC ratio 6.5 (calc ) <5.0 high Not Available [facility] [place] [facility] [address], [place], [address], 11/04/2024 07:37:15 11/04/19 25 11/04/2024 LIPID PANEL , STAND ABBI non HDL cholesterol 170 mg/dL _(fabricio c) <130 high For patie nts with diabe carmen plus 1 major ASCVD risk facto r, treat ing to a non-H DL-C goal of <100 mg/dL (LDL- C of <70 mg/dL ) is consi dered a thera peuti c optio n. Not Available [facility] [place] [facility] [address] [place], [address], 11/04/2024 07:37:15 11/04/19 25 11/04/2024 COMPR EHENS MIKE METAB OLIC PANEL glucose 86 mg/dL 65-99 normal Fasti ng refer ence inter adriel Not Available [facility] [address] [place], [address], 11/04/2024 07:37:16 11/04/19 25 11/04/2024 COMPR EHENS MIKE METAB OLIC PANEL urea nitrogen (BUN) 18 mg/dL 7-25 normal Not Available [facility] [address] [place], [address], 11/04/2024 07:37:16 11/04/19 25 11/04/2024 COMPR EHENS MIKE METAB OLIC PANEL creatinine 1.07 mg/dL 0.70-1 .30 normal Not Available [facility] [address] [facility] [place], [address], 11/04/2024 07:37:16 11/04/19 25 11/04/2024 COMPR EHENS MIKE METAB OLIC PANEL eGFR 84 mL/mi n/1.7 3m2 > or = 60 normal Not Available [facility] [address] [place], [address], 11/04/2024 07:37:16 11/04/19 25 11/04/2024 COMPR EHENS MIKE METAB OLIC PANEL BUN/creatini ne ratio SEE NOTE: (calc ) 6-22 Not Repor katelin: BUN and Creat inine are withi n refer ence range . Not Available [facility] [address] [place], [address], 11/04/2024 07:37:16 11/04/19 25 11/04/2024 COMPR EHENS MIKE METAB OLIC PANEL sodium 140 mmol/ L 135-14 6 normal Not Available [facility] [address] [place], [address], 11/04/2024 07:37:16 11/04/19 25 11/04/2024 COMPR EHENS MIKE METAB OLIC PANEL potassium 4.1 mmol/ L 3.5-5. 3 normal Not Available [facility] [address] [place], [address], 11/04/2024 07:37:16 11/04/19 25 11/04/2024 COMPR EHENS MIKE METAB OLIC PANEL chloride 104 mmol/ L 98-110 normal Not Available [facility] [address] [place], [address], 11/04/2024 07:37:16 11/04/19 25 11/04/2024 COMPR EHENS MIKE METAB OLIC PANEL carbon dioxide 28 mmol/ L 20-32 normal Not Available [facility] [address] [place], [address], 11/04/2024 07:37:16 11/04/19 25 11/04/2024 COMPR EHENS MIKE METAB OLIC PANEL calcium 9.2 mg/dL 8.6-10 .3 normal Not Available [facility] [address] [place], [address], 11/04/2024 07:37:16 11/04/19 25 11/04/2024 COMPR EHENS MIKE METAB OLIC PANEL protein, total 6.7 g/dL 6.1-8. 1 normal Not Available [facility] [address] [place], [address], 11/04/2024 07:37:16 11/04/19 25 11/04/2024 COMPR EHENS MIKE METAB OLIC PANEL albumin 4.3 g/dL 3.6-5. 1 normal Not Available [facility] [address] [place], [address], 11/04/2024 07:37:16 11/04/19 25 11/04/2024 COMPR EHENS MIEK METAB OLIC PANEL globulin 2.4 g/dL_ (calc ) 1.9-3. 7 normal Not Available [facility] [address] [place], [address], 11/04/2024 07:37:16 11/04/19 25 11/04/2024 COMPR EHENS MIKE METAB OLIC PANEL albumin/glob ulin ratio 1.8 (calc ) 1.0-2. 5 normal Not Available [facility] [place], [address], 11/04/2024 07:37:16 11/04/19 25 11/04/2024 COMPR EHENS MIKE METAB OLIC PANEL bilirubin, total 0.5 mg/dL 0.2-1. 2 normal Not Available [facility] [address] [place], [address], 11/04/2024 07:37:16 11/04/19 25 11/04/2024 COMPR EHENS MIKE METAB OLIC PANEL alkaline phosphatase 63 U/L 35-144 normal Not Available [facility] [address] [place], [address], 11/04/2024 07:37:16 11/04/19 25 11/04/2024 COMPR EHENS MIKE METAB OLIC PANEL AST 15 U/L 10-35 normal Not Available [facility] [place] [facility] [address] [place], [address], 11/04/2024 07:37:16 11/04/19 25 11/04/2024 COMPR EHENS MIKE METAB OLIC PANEL ALT 17 U/L 9-46 normal Not Available [facility] [place] [facility] [address] [facility] [place], [address], 11/04/2024 07:37:16 11/04/19 25 11/04/2024 HEMOG LOBIN A1C hemoglobin A1C 6.0 % <5.7 high For someo ne witho ut known diabe carmen, a hemog lobin A1c value betwe en 5.7% and 6.4% is consi stent with predi abete s and shoul d be confi rmed with a follo w-up test. For someo ne with known diabe carmen, a value <7% indic ates that their diabe carmen is well contr olled . A1c targe ts shoul d be indiv idual ized based on durat ion of diabe carmen, age, comor bid condi tions , and other consi derat ions. This assay resul t is consi stent with an incre ased risk of diabe carmen. Curre ntly, no conse nsus exist s regar ding use of hemog lobin A1c for diagn osis of diabe carmen for child valerie. Not Available [facility] [place] [facility] [address] [facility] [place], [address], 11/04/2024 07:37:16 11/04/19 25 11/04/2024 TSH TSH 7.26 mIU/L 0.40-4 .50 high Not Available [facility] [place] [facility] [address] [facility] [place], [address], 11/04/2024 07:37:16 11/04/19 25 11/04/2024 CBC (INCL UDES DIFF/ PLT) white blood cell count 5.9 thous and/u L 3.8-10 .8 normal Not Available [facility] [address] [facility] [place], [address], 11/04/2024 07:37:17 11/04/19 25 11/04/2024 CBC (INCL UDES DIFF/ PLT) red blood cell count 5.01 dian on/uL 4.20-5 .80 normal Not Available [facility] [address] [facility] [place], [address], 11/04/2024 07:37:17 11/04/19 25 11/04/2024 CBC (INCL UDES DIFF/ PLT) hemoglobin 15.0 g/dL 13.2-1 7.1 normal Not Available [facility] [address] [facility] [place], [address], 11/04/2024 07:37:17 11/04/19 25 11/04/2024 CBC (INCL UDES DIFF/ PLT) hematocrit 47.6 % 38.5-5 0.0 normal Not Available [facility] [address] [facility] [place], [address], 11/04/2024 07:37:17 11/04/19 25 11/04/2024 CBC (INCL UDES DIFF/ PLT) MCV 95.0 fL 80.0-1 00.0 normal Not Available [facility] [facility] [place], [address], 11/04/2024 07:37:17 11/04/19 25 11/04/2024 CBC (INCL UDES DIFF/ PLT) MCH 29.9 pg 27.0-3 3.0 normal Not Available [facility] [address] [facility] [place], [address], 11/04/2024 07:37:17 11/04/19 25 11/04/2024 CBC (INCL UDES DIFF/ PLT) MCHC 31.5 g/dL 32.0-3 6.0 low For adult s, a sligh t decre ase in the calcu lated MCHC value (in the range of 30 to 32 g/dL) is most likel y not clini demarcus chatmani rose t; cain er, it shoul d be inter prete d with cauti on in [facility] n with other red cell tracy eters and the patie nt's clini fabricio condi tion. Not Available [facility] [place] [facility] [address], [place], [address], 11/04/2024 07:37:17 11/04/19 25 11/04/2024 CBC (INCL UDES DIFF/ PLT) RDW 14.1 % 11.0-1 5.0 normal Not Available [facility] [place] [facility] [address], [place], [address], 11/04/2024 07:37:17 11/04/19 25 11/04/2024 CBC (INCL UDES DIFF/ PLT) platelet count 213 thous and/u L 140-40 0 normal Not Available [facility] [place] [facility] [address], [place], [address], 11/04/2024 07:37:17 11/04/19 25 11/04/2024 CBC (INCL UDES DIFF/ PLT) MPV 9.5 fL 7.5-12 .5 normal Not Available [facility] [place] [facility] [address], [place], [address], 11/04/2024 07:37:17 11/04/19 25 11/04/2024 CBC (INCL UDES DIFF/ PLT) absolute neutrophils 3947 cells /uL 1500-7 800 normal Not Available [facility] [place] [facility] [address], [place], [address], 11/04/2024 07:37:17 11/04/19 25 11/04/2024 CBC (INCL UDES DIFF/ PLT) absolute lymphocytes 1357 cells /uL 850-39 00 normal Not Available [facility] [place] [facility] [address], [place], [address], 11/04/2024 07:37:17 11/04/19 25 11/04/2024 CBC (INCL UDES DIFF/ PLT) absolute monocytes 490 cells /uL 200-95 0 normal Not Available [facility] [place] [facility] [address], [place], [address], 11/04/2024 07:37:17 11/04/19 25 11/04/2024 CBC (INCL UDES DIFF/ PLT) absolute eosinophils 47 cells /uL 15-500 normal Not Available [facility] [place] [facility] [address], [place], [address], 11/04/2024 07:37:17 11/04/19 25 11/04/2024 CBC (INCL UDES DIFF/ PLT) absolute basophils 59 cells /uL 0-200 normal Not Available [facility] [place] [facility] [address], [place], [address], 11/04/2024 07:37:17 11/04/19 25 11/04/2024 CBC (INCL UDES DIFF/ PLT) neutrophils 66.9 % normal Not Available [facility] [place] [facility] [address], [place], [address], 11/04/2024 07:37:17 11/04/19 25 11/04/2024 CBC (INCL UDES DIFF/ PLT) lymphocytes 23.0 % normal Not Available [facility] [place] [facility] [address], [place], [address], 11/04/2024 07:37:17 11/04/19 25 11/04/2024 CBC (INCL UDES DIFF/ PLT) monocytes 8.3 % normal Not Available [facility] [place] [facility] [address], [place], [address], 11/04/2024 07:37:17 11/04/19 25 11/04/2024 CBC (INCL UDES DIFF/ PLT) eosinophils 0.8 % normal Not Available [facility] [place] [facility] [address] [place], [address], 11/04/2024 07:37:17 11/04/19 25 11/04/2024 CBC (INCL UDES DIFF/ PLT) basophils 1.0 % normal Not Available [facility] [place] [facility] [address] [place], [address], 11/04/2024 07:37:17 11/04/19 25 11/04/2024 PSA, TOTAL PSA, total 0.68 NG/mL < or = 4.00 normal The total PSA value from this assay syste m is stand ardiz ed again st the WHO stand abbi. The test resul t will be appro ximat miesha 20% lower when merlene red to the equim olar- stand ardiz ed total PSA (Patel man Coult er). Merlene rison of seria l PSA resul ts shoul d be inter prete d with this fact in mind. This test was perfo rmed using the [employer] chemi lumin escen t metho d. Value s obtai elizabeth from diffe rent assay metho ds canno t be used inter lozada eably . PSA level s, regar dless of value , shoul d not be inter prete d as absol [place] evide nce of the prese nce or absen ce of disea se. Not Available [facility] [address] [place], [address], 11/04/2024 07:37:17 11/04/19 25 11/04/2024 LYME DISEA SE AB W/REF L TO BLOT (IGG, IGM) lyme Ab screen <0.90 index normal Index Inter preta tion ----- ----- ----- ---- < 0.90 Negat mike 0.90- 1.09 Equiv ocal > 1.09 Posit mike As recom wu d by the Food and Drug Admin istra tion (FDA) , all sampl es with posit mike or equiv ocal resul ts in a Borre darren burgd orfer i antib santosh scree n will be teste d using a blot metho d. Posit mike or equiv ocal scree ashia test resul ts shoul d not be inter prete d as truly posit mike until verif ied as such using a suppl ement al assay (e.g. , B. burgd orfer i blot) . The scree ashia test and/o r blot for B. burgd orfer i antib odies may be false ly negat mike in early stage s of Lyme disea se, inclu ding the perio d when eryth chavo migra ns is appar ent. Not Available [facility] [address] [facility], [place], [address], 11/04/2024 20:11:40 11/04/19 25 11/04/2024 JACOB SCREE N, IFA, W/REF L TITER AND PATTE RN JACOB screen, ifa NEGATI VE negati ve normal JACOB IFA is a first line scree n for detec ting the prese nce of up to appro ximat miesha 150 autoa ntibo dies in vario us autoi mmune disea ses. A negat mike JACOB IFA resul t sugge sts an JACOB-a ssoci ated autoi mmune disea se is not prese nt at this time, but is not defin itive . If there is high clini fabricio suspi cion for Sjogr en's syndr ome, testi ng for anti- SS-A/ Ro antib santosh shoul d be consi dered . Anti- Mei-1 antib santosh shoul d be consi dered for clini demarcus suspe cted infla mmato ry myopa wilma . AC-0: Negat mike Inter natio nal Conse nsus on JACOB Patte rns (http s://d oi.or g/10. 1515/ [facility]) For addit ional infor jak eckert e refer to http: //camilo shabazz.Russel stDia gnost ics.c om/fa q/FAQ 177 (This link is being provi ded for infor matesequiel nal/ educa darrion l purpo ses only. ) Not Available [facility] [address] [place], [address], 11/04/2024 20:11:41 11/04/19 25 11/04/2024 RHEUM ATOID FACTO R rheumatoid factor <10 IU/mL <14 normal Not Available [facility] [address] [facility], [place], [address], 11/04/2024 20:11:41 06/30/19 23 06/29/2022 XR, knee, 4 or more view [facility] [address] [place] [address] Phone: Fax: Name: HOLLY Raquel FRANNIE Exam Date: : 1974 Age 47 Gender : M Access ion: [id number] Physic zachery: LETHA GILLIS Facili ty: [facility] Facili ty HSV: Outpat ient Exam: KNEE 4V LT Right knee FOUR VIEW HISTOR Y: Pain. FINDIN GS: Four views show no eviden ce of an acute, displa hina fractu re or disloc ation of the visual ized bony moncho ecture . Mild narrow ing of the medial compar tment. Minima l degene rative change s. If [facility] furthe r evalua tion with MRI. IMPRES DEREK: No acute osseou s change s. Dictat ed By: LETHA HEIN Transc ribed By: LETHA HEIN Transc ribed On: 023 4:35 PM Electr onical ly signed by: LETHA HEIN Thank you for referr ing FRANNIE GILLIAM to [facility] Legall y authen ticate d by POPE LETHA Carrasco DO 06-29 16:35: 56 CC'ed Logic: Orderi ng Provid er: PUMA Ruiz CC Provid er: PUMA Ruiz Attend ing Provid er: PUMA Ruiz Referr ing Provid er: PUMA Ruiz Admitt ing Provid er: PUMA dobbins1 [facility] (Radiology) [address] [place], [address], 07/01/2022 15:11:55 07/01/19 23 06/29/2022 XR, knee, 4 or more view [facility] [address] [facility] [address] Phone: Fax: Name: CHERY IBANEZ Exam Date: : [birth year] Age 28 Gender : M Access ion: [id number] Physic zachery: LETHA GILLIS Facili ty: [facility] Facili ty HSV: Outpat ient Exam: KNEE 4V RT Right knee Histor y: Pain from fall Findin gs: Three views demons trate no acute fractu re or disloc ation. The joint spaces appear normal . The visual ized bony struct ures are well aligne d. No soft tissue abnorm ality is seen. IMPRES DEREK: No acute proces s. Images were review ed, interp reted and dictat ed by Kathy Hampton MD Transc ribed by Ridge Loera RT Dictat ed By: KATHY HAMPTON Transc ribed By: KATHY HAMPTON Transc ribed On: 023 1:50 PM Electr onical ly signed by: KATHY HAMPTON Thank you for referr ing CHERY IBANEZ to [facility]. Legall y authen ticate d by CORNELIA Nevarez MD 06-30 13:50: 19 CC'ed Logic: Orderi ng Provid er: PUMA Ruiz CC Provid er: PUMA Ruiz Attend ing Provid er: PUMA Ruiz Referr ing Provid er: PUMA Ruiz Admitt ing Provid er: PUMA dobbins1 [facility] (Radiology) [address] [place], [address], 07/01/2022 15:11:55 11/12/19 24 11/11/2023 rhyth m strip , EKG* No observ ation record ed. [address], [place], [address], 11/20/2023 16:46:32 11/12/19 24 11/11/2023 nucle ar stres s test No observ ation record ed. [address], [place], [address], 11/20/2023 16:47:17 11/17/19 24 11/11/2023 US, echoc ardio gram No observ ation record ed. [address], [place], [address], 11/20/2023 16:47:53 12/30/19 24 12/27/2023 CT, coron monica calci um score No observ ation record ed. [address], [place], [address], 01/06/2024 09:02:49 09/23/19 25 09/15/2024 [facility] [place] [address] Phone: Fax: Name: FRANNIE GILLIAM Exam Date: 09/16/19 25 : 1974 Age 49 years Gender : M Access ion: [id number] Physic zachery: CONSUELO REESE ty: [facility] [place] ty HSV: Outpat ient Exam: KNEE 4V LT XR KNEE 4 OR MORE VIEWS LEFT Reason For Study: standi ng COMPAR RAPHAEL: 5 TECHNI QUE: 2 views of the left knee were obtain ed. FINDIN GS Standi ng latera l and patell ar (sunri se) views perfor med. Mild degene rative change s presen t. No fractu res detect ed. There is minima l latera l patell ar tilt and joint space narrow ing femora l patell ar joint. Sugges tion of chondr omalac ia articu lar surfac e of the patell a. No joint effusi on. IMPRES DEREK: Mild DJD. Electr onical ly signed by: Letha Moncada MD 2024 12:49 PM EDT RP Workst ation: [id number] Dictat ed By: LETHA MONCADA Transc ribed By: Transc ribed On: 09/16/19 2:46 PM Electr onical ly signed by: LETHA MONCADA 09/16/19 Thank you for referr ing [facility] Legall y authen ticate d by ARPITA MONAE MD 2024-0 09-15 14:46: 59 CC'ed Logic: Orderi rick Provid er: BRANDON CORDERO CC Provid er: ALLJAKUB Ruiz Attend ing Provid er: BRANDON CORDERO Referr ing Provid er: BRANDON CORDERO Admitt ing Provid er: BRANDON dobbins[address] [place] [address] (Radiology) [address] [place], [address], 10/05/2024 08:20:00 09/23/19 25 09/15/2024 XR, knee, 4 or more view [facility] [address] [place] [address] Phone: Fax: Name: HOLLY Raquel FRANNIE Exam Date: 09/16/19 : 1974 Age 49 years Gender : M Access ion: [id number] Physic zachery: CONSUELO REESEi ty: [facility] Facili ty HSV: Outpat ient Exam: KNEE 4V RT XR KNEE 4 OR MORE VIEWS RIGHT Reason For Study: standi ng COMPAR RAPHAEL: 23 TECHNI QUE: 4 views of the right knee were obtain ed. FINDIN GS Mild DJD. No fractu re or disloc ation. No radiop aque foreig n body apprec iated. No signif icant malali gnment with standi ng. IMPRES DEREK: Mild DJD. No signif icant malali gnment on weight bearin g Electr onical ly signed by: Letha Moncada MD 2024 12:51 PM EDT RP Workst ation: [id number] Dictat ed By: LETHA MONCADA Transc ribed By: Transc ribed On: 09/16/19 2:47 PM Electr onical ly signed by: LETHA MONCADA 09/16/19 Thank you for referr ing FRANNIE GILLIAM to [facility]. Legall y authen ticate d by ARPITA MONAE MD 09-15 14:47: 08 CC'ed Logic: Orderi ng Provid er: BRANDON CORDERO CC Provid er: PUMA Ruiz Attend ing Provid er: BRANDON CORDERO Referr ing Provid er: BRANDON Floresitt ing Provid er: BRANDON ramirez [facility] (Radiology) [address] [place] [address] [place], [address], 10/05/2024 08:20:00 Result Notes Documentation Provider Name and Address Organization Details Recorded Time Xr, Knee, 4 Or More View : [address] [place] [address] Name: CAMRYNHIRAM FRANNIE Exam Date: 06/29/2022 : 1975 Age 47 Gender: M Physician: BEATRICE FINLEY Facility: [facility] Facility HSV: Outpatient Exam: KNEE 4V LT Right knee FOUR VIEW HISTORY: Pain. FINDINGS: Four views show no evidence of an acute, displaced fracture or dislocation of the visualized bony architecture. Mild narrowing of the medial compartment. Minimal degenerative changes. If warranted consider further evaluation with MRI. IMPRESSION: No acute osseous changes. Dictated By: LETHA HEIN Transcribed By: LETHA HEIN Transcribed On: 06/29/2022 4:35 PM Electronically signed by: LETHA HEIN 06/29/2022 Thank you for referring FRANNIE RUSSO to [facility]. Legally authenticated by POPE LETHA Carrasco DO 2022-06-29 16:35:56 CC'ed Logic: Ordering Provider: MALIA LOPEZ Provider: MALIA CANTU Attending Provider: MALIA CANTU Referring Provider: MALIA CANTU Admitting Provider: MALIA Finley MD [address] [facility], [facility] [address], [address], [place] [facility] 07/01/2022 15:11:55 Xr, Knee, 4 Or More View : [address] [place] [address] Name: CEHRY SOLIS Exam Date: 06/29/2022 : 03/30/1994 Age 28 Gender: M Physician: BEATRICE FINLEY Facility: [facility] Facility HSV: Outpatient Exam: KNEE 4V RT Right knee History: Pain from fall Findings: Three views demonstrate no acute fracture or dislocation. The joint spaces appear normal. The visualized bony structures are well aligned. No soft tissue abnormality is seen. IMPRESSION: No acute process. Images were reviewed, interpreted and dictated by Kathy Hampton MD Transcribed by Ridge Loera RT Dictated By: KATHY HAMPTON Transcribed By: KATHY HAMPTON Transcribed On: 06/30/2022 1:50 PM Electronically signed by: KATHY HAMPTON 06/30/2022 Thank you for referring CHERY SOLIS to [facility]. Legally authenticated by CORNELIA Nevarez MD 2022-06-30 13:50:19 CC'ed Logic: Ordering Provider: MALIA CANTU CC Provider: MALIA CANTU Attending Provider: MALIA CANTU Referring Provider: MALIA CANTU Admitting Provider: MALIA Finley MD [address] [facility], [address], [place], [address], [place] [facility] 07/01/2022 15:11:55 Xr, Knee, 4 Or More View : [address] [place] [address] Name: FRANNIE RUSSO Exam Date: 09/15/2024 : 1975 Age 49 years Gender: M Physician: CONSUELO REESE Facility: [facility] Facility HSV: Outpatient Exam: KNEE 4V LT XR KNEE 4 OR MORE VIEWS LEFT Reason For Study: standing COMPARISON:09/15/2024 TECHNIQUE: 2 views of the left knee were obtained. FINDINGS Standing lateral and patellar (sunrise) views performed. Mild degenerative changes present. No fractures detected. There is minimal lateral patellar tilt and joint space narrowing femoral patellar joint. 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 No joint effusion. IMPRESSION: Mild DJD. Electronically signed by: Letha Moncada MD 09/22/2024 12:49 PM EDT RP Dictated By: LETHA MONCADA Transcribed By: Transcribed On: 09/15/2024 2:46 PM Electronically signed by: LETHA MONCADA 09/15/2024 Thank you for referring FRANNIE RUSSO to [facility]. Legally authenticated by ARPITA MONAE MD 2024-09-15 14:46:59 CC'ed Logic: Ordering Provider: BRNADON LOPEZ Provider: MALIA CANTU Attending Provider: BRANDON CORDERO Referring Provider: BRANDON CORDERO Admitting Provider: BRANDON Finley MD [address] [place] [address], [address], [place], [address] [place] [facility] 10/05/2024 08:20:00 Xr, Knee, 4 Or More View : [address] [place] [address] Name: FRANNIE RUSSO Exam Date: 09/15/2024 : 1975 Age 49 years Gender: M Physician: CONSUELO REESE Facility: [facility] Facility HSV: Outpatient Exam: KNEE 4V RT XR KNEE 4 OR MORE VIEWS RIGHT Reason For Study: standing COMPARISON:06/29/2022 TECHNIQUE: 4 views of the right knee were obtained. FINDINGS Mild DJD. No fracture or dislocation. No radiopaque foreign body appreciated. No significant malalignment with standing. IMPRESSION: Mild DJD. No significant malalignment on weightbearing Electronically signed by: Letha Moncada MD 09/22/2024 12:51 PM EDT RP Dictated By: LETHA MONCADA Transcribed By: Transcribed On: 09/15/2024 2:47 PM Electronically signed by: LETHA MONCADA 09/15/2024 Thank you for referring FRANNIE RUSSO to [facility]. Legally authenticated by ARPITA MONAE MD 2024-09-15 14:47:08 CC'ed Logic: Ordering Provider: BRANDON LOPEZ Provider: MALIA CANTU Attending Provider: BRANDON CORDERO Referring Provider: BRANDON CORDERO Admitting Provider: BRANDON Finley MD [address] [address], [place] [facility] 10/05/2024 08:20:00 Problems Name Problem SNOMED Code Status Onset Date Resolution Date Notes Provider Name and Address Organization Details Recorded Time Acute sinusitis 72324277 Active Beatrice Finley MD [address] [address], [place] [facility] 6 17:06:29 Acute pancreatitis 318547593 Active Beatrice Finley MD [address] [address], [place] [facility] 6 17:06:29 Migraine 63919465 Rashard Finley MD [address] [address], [place] [facility] 6 18:11:39 Refractory migraine without aura [id number] Rashard Finley MD [address] [address], [place] [facility] 6 17:06:29 Abdominal pain 91779762 Active Beatrice Finley MD [address] [address], [place] [facility] 6 17:06:29 Plantar fascial fibromatosis 50003033 Active Beatrice Finley MD [address] [address], [place] - [facility] 6 17:06:29 Wheezing 80407924 Active Beatrice Finley MD [address] [address], [place] [facility] 6 17:06:29 Strain of supraspinatus muscle AND/OR tendon 02559451 Active Beatrice Finley MD [address] [address], [place] [facility] 6 17:06:29 Knee pain Active Beatrice Finley MD [address] [address], [place] [facility] 6 17:06:29 Gastroesophage al reflux disease 973293893 Rashard Finley MD [address] [address], [place] [facility] 6 17:06:29 Disorder of urinary tract 31969446 Active Beatrice Finley MD [address] [address], [place] [facility] 6 18:11:39 Kidney stone 81369823 Active Beatrice Finley MD [address] [address], [place] [facility] 6 17:06:29 Pain of shoulder region 43930343 Active Beatrice Finley MD [address] [address], [place] - [facility] 6 17:06:29 Insomnia 216186141 Rashard Finley MD [address] [address], [place] - [facility] 6 17:06:29 Anxiety disorder 649260253 Active Beatrice Finley MD [address] [address], [place] - [facility] 6 17:06:29 Hyporeflexia 47225384 Rashard Finley MD [address] [address], [place] - [facility] 6 17:06:29 Depressive disorder 18581842 Active Beatrice Finley MD [address] [address], [place] - [facility] 6 17:06:29 Esophageal dysphagia 46543852 Rashard Finley MD [address] [address], [place] - [facility] 6 17:06:29 Episodic cluster headache 458827474 Rashard Finley MD [address] [address], [place] - [facility] 6 17:06:29 Complaining of erectile dysfunction Active Beatrice Finley MD [address] [address], [place] - [facility] 6 19:54:14 Hyperlipidemia 70045848 Rashard Finley MD [address] [address], [place] [facility] 6 17:06:29 Allergic rhinitis 90198286 Active Beatrice Finley MD [address] [address], [place], [place], [address] [place] [address], [place] [facility] 6 18:11:39 Acute prostatitis 29616084 Active Beatrice Finley MD [address], [address] [place] [address], [place] [facility] 6 18:11:39 Problem Notes None recorded. Procedures Surgical History Date Name Laterality Status Provider Name and Address Organization Details Recorded Time 08/21/19 14 Cystouretero w/lithotripsy completed Beatrice Finley MD [address], [address] [place] [address], [place] [facility] 08/21/2013 17:01:49 03/18/19 08 Colonoscopy completed Beatrice Finley MD [address], [address] [place] [address], [place] [facility] 02/16/2021 16:02:06 Imaging Results None recorded. Procedure Notes None recorded. Medical Equipment None Reported. Allergies Allergen ID Allergen Name Allergen Category Reaction Reaction Severity Criticality Documentation Date Start Date Code Code System Note Provider Name and Address Organization Details Recorded Time 44866 Product containin g penicilli n (product) medicatio n Not available Not available Not available 07/27/2011 61098 8001 SNOMED Marcy [place] [facility] 2 16:24:46 Medications Name Sig Start Date Stop Date Status Note LastModified by Organization Details LastModified Time sumatript an tab 100mg active Not Available Not Available Not Available buspirone tab 5mg active Not Available Not Available Not Available methylpre d rob 4mg active Not Available Not Available No t Available naproxen tab 500mg active Not Available Not Available No t Available buspirone 5 mg tablet Take 1 tablet 3 times a day by oral route as directed for 30 days. active Not Available Not Available No t Available Carafate 100 mg/mL oral suspensio n active Not Available Not Available Not Available azithromy yas 250 mg tablet TAKE 2 TABLETS BY MOUTH TODAY, THEN TAKE 1 TABLET DAILY FOR 4 DAYS DIRECTED 11/05 completed Not Available Not Available Not Available sumatript an 100 mg tablet TAKE 1 TABLET NEEDED AT THE ONSET OF A HEADACHE 01/03 completed Not Available Not Available Not Available hydrocodo ne 5 mg-acetam inophen 325 mg tablet 12/01 completed Not Available Not Available Not Available meloxicam 15 mg tablet TAKE 1 TABLET BY MOUTH EVERY DAY WITH A MEAL 05/31 completed thinks it caused swelling Not Available Not Available Not Available topiramat e 25 mg tablet Take 2 tablets twice a day by oral route as directed . 03/13 completed dose changed Not Available Not Available Not Available bacitraci n zinc 500 unit/gram topical ointment APPLY TO AFFECTED AREA TWICE A DAY active Not Available Not Available No t Available allopurin ol 100 mg tablet TAKE 2 TABLETS BY MOUTH EVERY DAY 05/31 completed Not Available Not Available Not Available ciproflox acin 500 mg tablet TAKE 1 TABLET BY MOUTH EVERY 12 HOURS 06/30 completed Not Available Not Available Not Available sulfameth oxazole 800 mg-trimet hoprim 160 mg tablet TAKE 1 TABLET(S ) EVERY 12 HOURS BY ORAL ROUTE. 04/08 completed Not Available Not Available Not Available omeprazol e 40 mg capsule,d elayed release TAKE 1 CAPSULE BY MOUTH AT LEAST 30 MINS BEFORE BREAKFAS T DAILY 11/05 completed Not Available Not Available Not Available sildenafi l 100 mg tablet TAKE 1 TABLET BY MOUTH EVERY DAY NEEDED 10/10 completed Not Available Not Available Not Available levothyro xine 100 mcg tablet TAKE 1 TABLET BY MOUTH EVERY DAY 03/30 completed Not Available Not Available Not Available oxycodone -acetamin ophen 5 mg-325 mg tablet active Not Available Not Available Not Available ceftriaxo ne 1 gram solution for injection 2011 active Rocephin Not Available Not Available Not Avai lable oxycodone -acetamin ophen 10 mg-325 mg tablet 07/29 completed Not Available Not Available Not Available tamsulosi n 0.4 mg capsule TAKE 1 CAPSULE EVERY DAY (TAKE 1/2 HOUR AFTER SAME MEAL EACH DAY) active Not Available Not Available No t Available potassium citrate ER 10 mEq (1,080 mg) tablet,ex tended release TAKE 1 TABLET BY MOUTH TWICE A DAY active Not Available Not Available No t Available rizatript an 10 mg disintegr ating tablet PLEASE SEE ATTACHED FOR DETAILED DIRECTIO NS active Not Available Not Available No t Available levothyro xine 50 mcg tablet TAKE 1 TABLET BY MOUTH EVERY DAY 10/10 completed Not Available Not Available Not Available cephalexi n 500 mg capsule TAKE 1 CAPSULE BY MOUTH EVERY 6 HOURS 01/03 completed Not Available Not Available Not Available pantopraz ole 40 mg tablet,de layed release active Not Available Not Available Not Available levothyro xine 125 mcg tablet 1 po daily 11/08 completed Not Available Not Available Not Available ranitidin e 150 mg tablet Take 1 tablet twice a day by oral route as needed. 01/03 completed Not Available Not Available Not Available buspirone 10 mg tablet TAKE 1 TABLET BY MOUTH 3 TIMES A DAY 12/01 completed has not taken since October Not Available Not Available Not Available propranol ol ER 80 mg capsule,2 4 hr,extend ed release TAKE 1 CAPSULE BY MOUTH EVERY DAY active Not Available Not Available No t Available levothyro xine 150 mcg tablet Take 1 tablet every day by oral route in the morning. 2024 active Not Available Not Available Not Avai lable tobramyci n 40 mg/mL injection solution 06/08 completed Not Available Not Available Not Available hydrocodo ne 5 mg-acetam inophen 500 mg tablet Take 1 tablet every 4 hours by oral route. active Not Available Not Available No t Available aspirin 81 mg tablet Take 1 tablet every day by oral route. active Not Available Not Available No t Available mirtazapi ne 15 mg tablet TAKE ONE TABLET BY MOUTH EVERY EVENING active Not Available Not Available No t Available gabapenti n 100 mg capsule 1 to 3 capsules bid prn 01/03 completed Not Available Not Available Not Available dexametha sone sodium phosphate 4 mg/mL injection solution Inject 1 mL by intramus cular route. 11/05 completed Not Available Not Available Not Available methylpre dnisolone 4 mg tablets in a dose pack TAKE 6 TABLETS ON DAY 1 DIRECTED ON PACKAGE AND DECREASE BY 1 TAB EACH DAY FOR A TOTAL OF 6 DAYS 12/26 completed Not Available Not Available Not Available colchicin e 0.6 mg tablet Take 1 tablet twice a day by oral route for 30 days. 02/16 completed Not Available Not Available Not Available propranol ol 20 mg tablet TAKE 1 TABLET BY MOUTH IN THE MORNING AND 1-2 TABLETS AT NIGHT 01/03 completed Not Available Not Available Not Available topiramat e 100 mg tablet TAKE 1 TABLET(S ) TWICE A DAY BY MOUTH 04/02 completed Not Available Not Available Not Available fluticaso ne propionat e 50 mcg/actua tion nasal spray,francis pension INSTILL 1 SPRAY INTO EACH NOSTRIL TWICE A DAY 11/05 completed Not Available Not Available Not Available naproxen 500 mg tablet TAKE 1 TABLET BY MOUTH 2 TIMES A DAY NEEDED 02/16 completed Not Available Not Available Not Available levothyro xine 112 mcg tablet TAKE 1 TABLET BY MOUTH EVERY DAY IN THE MORNING 11/08 completed Not Available Not Available Not Available rosuvasta tin 10 mg tablet TAKE 1 TABLET BY MOUTH EVERY DAY 2024 active Not Available Not Available Not Avai lable Flovent HFA 220 mcg/actua tion aerosol inhaler active Not Available Not Available Not Available multivita min 1 po daily active Not Available Not Available No t Available potassium citrate ER 15 mEq (1,620 mg) tablet,ex tended release active Not Available Not Available Not Available Viibryd 40 mg tablet Take 1 tablet every day by oral route. 2013 active Not Available Not Available Not Avai lable azelastin e 137 mcg-fluti casone 50 mcg/spray nasal spray USE 1 SPRAY EACH NOSTRIL TWICE A DAY active Not Available Not Available No t Available Nurtec ODT 75 mg disintegr ating tablet TAKE 75 MG BY MOUTH DAILY NEEDED (MIGRAIN E). active Not Available Not Available No t Available Vitals Date Recorded Body height Body weight Heart rate Oxygen saturation Oxygen saturation in Arterial blood by Pulse oximetry Body temperature Systolic And Diastolic Provider Name and Address Organization Details Last Updated DateTime 5 187.96 cm 049880. 45 g 100 /min 96 % 96 % 97.8 [degF] 158/89 mm[Hg] [facility] 5 14:50:44 Date Recorded Body height Body mass index (BMI) Body weight Heart rate Oxygen saturation Oxygen saturation in Arterial blood by Pulse oximetry Body temperature Systolic And Diastolic Provider Name and Address Organization Details Last Updated DateTime 3 187.96 cm 37 kg/m2 444199. 4 g 73 /min 96 % 96 % 97.3 [degF] 126/85 mm[Hg] [facility] 3 15:39:04 Date Recorded Body height Body mass index (BMI) Body weight Heart rate Oxygen saturation Oxygen saturation in Arterial blood by Pulse oximetry Body temperature Systolic And Diastolic Provider Name and Address Organization Details Last Updated DateTime 4 187.96 cm 37.2 kg/m2 426613. 29 g 83 /min 97 % 97 % 97.9 [degF] 145/87 mm[Hg] [facility] 4 16:14:41 Date Recorded Body height Body mass index (BMI) Body weight Heart rate Oxygen saturation Oxygen saturation in Arterial blood by Pulse oximetry Body temperature Systolic And Diastolic Provider Name and Address Organization Details Last Updated DateTime 5 187.96 cm 38.3 kg/m2 002068. 93 g 94 /min 98 % 98 % 97.7 [degF] 150/88 mm[Hg] [facility] 5 15:47:00 Date Recorded Body height Body mass index (BMI) Body weight Heart rate Oxygen saturation Oxygen saturation in Arterial blood by Pulse oximetry Body temperature Systolic And Diastolic Provider Name and Address Organization Details Last Updated DateTime 1 187.96 cm 35.5 kg/m2 090886. 19 g 76 /min 95 % 95 % 97.7 [degF] 128/87 mm[Hg] [facility] 1 14:55:55 Social History Question Answer Notes LastModified by Organizat ion Details LastModified Time Tobacco Smoking Status Never Smoker Not Available [facility] 01/12/2020 03:11:17 Do You Have An Advance Directive? No [id number] Information not available 01/12/2020 Animal Exposure? No Informat ion not available 07/27/2011 Auto Related Injury? No Information not available 07/27/2011 Are You Blind Or Do You Have Difficulty Seeing? No [id number] Information not available 01/12/2020 Is Blood Transfusion Acceptable In An Emergency? Yes [id number] Information not available 01/12/2020 What Is Your Level Of Caffeine Consumption? Occasional [id number] Information not available 01/12/2020 How Much Tobacco Do You Chew? None [id number] Information not available 01/12/2020 Are You Deaf Or Do You Have Serious Difficulty Hearing? No [id number] Information not available 01/12/2020 Diabetes No Information no t available 07/27/2011 What Type Of Diet Are You Following? REGULAR [id number] Information not available 01/12/2020 Education 4 Year College Information not available 07/27/2011 What Is The Highest Grade Or Level Of School You Have Completed Or The Highest Degree You Have Received? [id number] Information not available 02/19/2021 Family History Of Heart Disease? No Information not available 07/27/2011 Which Of Your Hands Is Dominant? Right [id number] Information not available 01/12/2020 High Blood Pressure No Information not available 07/27/2011 High Cholesterol No Informat ion not available 07/27/2011 Live Alone Or With Others? With Others Living With His Ex Now And Their Adult Son Who Has Type 1 Diabetes Mellitus Information not available 11/08/2024 Marital Status Informatio n not available 07/27/2011 What Was The Date Of Your Most Recent Tobacco Screening? 11/05/2024 Information not available 11/08/2024 How Many Children Do You Have? 1 [id number] Information not available 01/12/2020 What Is Your Relationship Status? mu Information not available 02/19/2021 Do You Use Your Seat Belt Or Car Seat Routinely? Yes [id number] Information not available 01/12/2020 Seat Belts Used Routinely Yes Information not available 07/27/2011 Smoke Alarm In Home Yes Information not available 07/27/2011 General Stress Level Medium Information not available 07/27/2011 Do You Use Sunscreen Routinely? No [id number] Information not available 01/12/2020 Sex: Unknown Functional Status Question Answer Note LastModified by Organizat ion Details LastModified Time What is your level of alcohol consumption? None [id number] Information not available 01/12/2020 Are you currently employed? Yes [id number] Information not available 01/12/2020 Are you able to care for yourself independently? 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 Occasional [id number] Information not available 01/12/2020 Mental Status None recorded. Family History Relationship Description Onset Age of this Age Resolved Age Notes LastModified by Organization Details LastModified Time Father Hypertensive disorder Lupus (previ ously record ed as Hypert ension ) mu Not available 06/09/2015 17:07:49 Medical History Condition Response Coronary Artery Disease N Gout N Kidney Stones N Blood Diseases N Hyperthyroidism N Depression N Hypothyroidism N COPD N Developmental or Behavioral Disorders N Eczema, Hives or other skin conditions N Anxiety Disorder N Muscle, Joint, or Bone Problems N Vision or Eye Problems N Arthritis N Serious Illness or Injuries N Congenital Anomalies N Cancer N Stroke N Bladder or Kidney Problems N Hospital Admission other than N High Cholesterol N Liver Disease N Fibromyalgia N Kidney Disease N Heart Problems N Ear or Hearing Problems N ADD or ADHD N Thyroid Problems N Skin Problems N Anemia N Constipation N Diabetes N Bedwetting N Seizures/Epilepsy N Tuberculosis N Diverticulitis N Allergies N Asthma N GERD/Reflux N Heart Disease N Pulmonary Embolism N Hypertension N Osteoporosis N Chicken Pox N Immunizations Vaccine Type Date Status Note Provider Nam e and Address Organization Details Recorded Time Hep A, adult 8 completed Not Available [facility] 04/04/2019 02:12:07 Tdap 9 completed Not Available [facility] 04/04/2019 02:12:10 Hep A, adult 9 completed Not Available [facility] 04/04/2019 02:12:07 Influenza, recombinant, quadrivalent, PF 9 completed Not Available [facility] 04/04/2019 02:12:11 Influenza, recombinant, quadrivalent, PF 3 completed [facility] 06/01/2022 16:18:04 Influenza, split virus, quadrivalent, PF 3 completed Not Available [facility] 02/11/2023 09:43:30 Influenza, split virus, trivalent, PF 4 completed Not Available [facility] 03/06/2024 10:07:10 Influenza, split virus, quadrivalent, preservative 6 completed [facility] 03/13/2016 16:19:22 Pneumococcal conjugate PCV20, polysaccharide [id number] conjugate, adjuvant, PF 5 completed [facility] 11/05/2024 16:56:12 Influenza, split virus, quadrivalent, preservative 1 completed Beatrice Finley MD 2017 [facility], [place] [address], [place], [address], [facility] 01/03/2021 16:22:51 COVID-19, mRNA, LNP-S, PF, 100 mcg/0.5mL dose or 50 mcg/0.25mL dose 1 completed Beatrice Finley MD 2016 [facility], [facility] [address], [place], [address], [facility] 01/03/2021 16:23:09 COVID-19, mRNA, LNP-S, PF, 100 mcg/0.5mL dose or 50 mcg/0.25mL dose 1 completed Beatrice Finley MD [address] [place] [address], [address], [facility] 01/03/2021 16:23:25 Td (adult) 6 completed [facility] 03/16/2013 17:47:02 Past Encounters Encounter ID Performer Location Encounter Start Date Encounter Closed Date Diagnosis/Indication Diagnosis SNOMED-CT Code Diagnosis ICD10 Code Diagnosis IMO Codes Diagnosis Note [id number] Zach Ortiz MD [facility] [address] [address] 07/27/2011 16:21:28 07/27/2011 17:26:36 [id number] Beatrice Finley MD [address] [address] 01/15/2012 15:48:24 01/15/2012 18:30:05 [id number] Beatrice Finley MD [address] [address] 05/19/2012 16:09:50 05/19/2012 17:46:18 [id number] Beatrice Finley MD [address] [address] 06/27/2012 15:51:44 06/27/2012 18:56:46 [id number] Beatrice Finley MD [address] [address] 09/09/2012 15:52:50 09/11/2012 15:48:26 [id number] Beatrice Finley MD [address] [address] 04/17/2013 15:34:22 04/17/2013 16:54:03 Migraine 42085472 Knee pain 18062769 Gastroesop hageal reflux disease 595880289 [id number] Beatrice Finley MD [facility] [address] [address] 08/21/2013 15:37:20 08/21/2013 17:30:23 Kidney stone 15694536 Migraine 95864220 Strain of supraspinatus muscle AND/OR tendon 11694750 Pain of [facility] 27858659 [id number] Beatrice Finley MD [address] [address] 09/07/2013 15:31:15 09/08/2013 08:18:26 Disorder of urinary tract 74858409 Kidney stone 99251154 Insomnia 568113942 Anxiety disorder 986808256 [id number] Beatrice Finley MD [place] [address] 10/13/2013 15:54:21 10/15/2013 17:52:44 Anxiety disorder 520443616 Hyporeflexia 03931551 Depressive disorder 86752609 Migraine 85665376 [id number] Beatrice Finley MD [address] [address] 12/01/2013 15:49:54 12/01/2013 16:37:25 Gastroesophageal reflux disease 795426329 Esophageal dysphagia 14244630 Anxiety disorder 068535973 Depressive disorder 41479994 [id number] Beatrice Finley MD [address] [address] 07/16/2014 15:24:22 07/19/2014 09:08:22 Anxiety disorder 400617913 Migraine 80649256 [id number] Beatrice Finley MD [address] [address] 10/22/2014 15:52:43 10/26/2014 10:31:36 Knee pain 02094645 Migraine 24215469 [id number] Beatrice Finley MD [address] [address] 04/19/2015 14:31:37 04/19/2015 15:42:48 Migraine 91725889 G43.909 Episodic c luster headache 531524185 G44.019 Wheezing 84484517 R06.2 Complainin g of erectile dysfunction 401597137 N52.9 Hyperlipidemia 71279687 E78.5 [id number] Beatrice Finley MD [facility] [address] [address] 06/09/2015 15:51:00 06/10/2015 15:58:17 Migraine 76128633 G43.909 Allergic rhinitis 573140 04 J30.9 Disorder o f urinary tract 47353400 N39.9 Acute prostatitis 132480 02 N41.0 [id number] Beatrice Finley MD [facility] [place] [id number] 03/13/2016 15:39:21 03/14/2016 09:10:51 Venereal disease screening 681576820 Z11.3 Infection screening 2437 98948 Z11.9 [id number] Beatrice Finley MD [place] [address] 12/06/2016 14:55:06 12/06/2016 16:39:45 Migraine 40286572 G43.909 [id number] Beatrice Finley MD [place] [address] 7 03/19/2017 15:41:24 03/20/2017 12:44:28 Cyst of skin 099913237 L72.3 Snoring 28579792 R06.83 Body mass index 30+ - obesity 937455682 Z68.32 [id number] Beatrice Finley MD [place] [id number] 7 11/26/2017 14:49:16 11/28/2017 16:23:58 Shoulder joint painful on movement 090436726 M25.519 Gastro-eso phageal reflux disease with esophagitis 919508486 K21.0 [id number] Beatrice Finley MD [facility] [address] [address] 12/01/2018 15:24:40 12/02/2018 08:09:59 Essential hypertension 18688352 I10 Migraine 95929200 G43.90 9 Fatigue 43454009 R53.83 Paresthesi a of lower extremity 393738562 R20.2 both feet feel like they go to sleep around the foot at different times. He is finding that he tries to not bend the left foot because of the pain. Foot pain 66731736 M79.6 73 it is worst in the left foot Snoring 82943470 R06.83 he is being set up for a sleep study Hyperlipidemia 24320767 E78.5 [id number] Beatrice Finley MD [facility] [address] [address] 12/26/2018 14:39:15 12/29/2018 09:53:39 Superficial thrombophlebitis 2811864 I80.9 [id number] Beatrice Finley MD [facility] [address] [place] [address] 01/03/2021 14:39:17 01/06/2021 08:35:03 Erectile dysfunction 133356745 F52.21 Plantar fa sciitis of left foot 9213979996 6013884 M72.2 Gastroesop hageal reflux disease 441542020 K21.9 [id number] Beatrice Finley MD [facility] [address] [place] [id number] 7 02/16/2021 14:47:20 02/20/2021 08:02:42 Essential hypertension 71721247 I10 Migraine 56465331 G43.90 9 Fatigue 01225252 R53.83 Hyperlipidemia 13936083 E78.5 Gout 37347612 M10.9 Adult heal th examination 680640056 Z00.00 Gastroesop hageal reflux disease 058981811 K21.9 Screening for malignant neoplasm of colon 400162256 Z12.11 Plantar fa sciitis of left foot 1965032554 2028052 M72.2 Hypothyroidism 57337709 E03.9 Body mass index 30+ - obesity 370561111 Z68.35 [id number] Beatrice Finley MD [facility] [address] [address] 05/31/2022 15:35:11 06/01/2022 09:08:03 Adult health examination 943579470 Z00.00 Essential hypertension 37128718 I10 Migraine 07244128 G43.90 9 Hyperlipidemia 48546167 E78.5 Gastroesop hageal reflux disease 766547797 K21.9 Hypothyroidism 66232789 E03.9 Body mass index 30+ - obesity 552408181 Z68.37 Pain of bi lateral knee joints 3292815421 21218 M25.561 M25.562 Screening for cardiovascular system disease 392989427 Z13.6 [id number] Beatrice Finley MD [facility] [address] [place] [address] 10/11/2023 15:47:17 10/14/2023 09:01:16 Hyperlipidemia 23856558 E78.5 Adult heal th examination 957912737 Z00.00 Essential hypertension 67018280 I10 Migraine 88683234 G43.90 9 Gastroesop hageal reflux disease 199270450 K21.9 Hypothyroidism 95476008 E03.9 Body mass index 30+ - obesity 221912501 Z68.37 Pain of bi lateral knee joints 0395323433 21050 M25.561 M25.562 Screening for cardiovascular system disease 501067323 Z13.6 [id number] Beatrice Finley MD [facility] [address] [place] [address] 03/30/2024 14:36:23 03/30/2024 15:32:43 Sore throat 357079741 J02.9 Hypothyroidism 84428880 E03.9 Neck swelling 743231930 R22.1 Prediabetes 886268181 R7 3.03 Hyperlipidemia 35110361 E78.5 Uvulitis 444538444 K12.2 Obstructiv e sleep apnea syndrome 61859940 G47.33 [id number] Beatrice Finley MD [facility] [address] [address] 11/05/2024 15:34:14 11/09/2024 09:13:46 Adult health examination 425104653 Z00.00 Hyperlipidemia 35311005 E78.5 Essential hypertension 16886769 I10 Migraine 36389281 G43.90 9 Gastroesop hageal reflux disease 706591771 K21.9 Hypothyroidism 19732735 E03.9 Body mass index 30+ - obesity 669497967 Z68.37 Pain of bi lateral knee joints 2754803515 27136 M25.561 M25.562 Screening for cardiovascular system disease 117652376 Z13.6 Immunization due 6549222 08 Z23 4422392 Health Concerns Section Related Observation LastModified by Organization Detai ls LastModified Time None Recorded Concern Status LastModified by Organization Details LastModified Time None Recorded Advance Directives Directive N: Payers Insurance Date Sequence Insurance Name Policy Number Policy Bey Covered Member ID Bey Member ID Guarantor Name 03/30/2024 1 [facility] - CHOICE PLUS [id number] Frannie Russo [id number] Frannie Russo 03/30/2024 1 [employer] - [place] [employer] CHOICE PLUS (HMO) [id number] Frannie Russo [id number] Frannie Russo 11/09/2024 1 [place] [id number] Frannie Russo [id number] Frannie Russo Notes Date Note Type Note Provider Name and Address Organization Details Recorded Time 02/16/2021 text/html plantar fasciitis is no better and the mobic caused a lot of swelling and so he stopped it Saturday and it is much better with the swelling now. Never helped the heel. States heel is much worse actually. Beatrice Finley MD 2017 [facility], [facility] [address], [place], [address], [facility] 02/19/2021 20:56:42 05/31/2022 text/html he stopped playing baseball 3 years ago. His worst issue is both knees and going up and down steps is the worst. He lives in [facility]. Works in [place]. The knees are really compromising his daily activities. He has to walk down steps or a hill sideways. It is easier to walk up something But both knees are equally bad and he feels the pain is worse that his migraines.He has also continued to gain weight. He is not taking any otc meds for the knees. He has had allopurinol in the past and mobic but stopped those because he thought the medications were making his legs swell. He still has flares of gout in his feet so we can rx colchicine. Beatrice Finley MD 2017 [facility], [facility] [address], [place], [address], [facility] 06/01/2022 08:04:35 03/30/2024 text/html his throat has been bothering him for 3 weeks and feels like it is bruised in his throat. No fevers but slightly uncomfortable to swallow this past week.He has a CPAP but has not been using it since January because he needs new appliances. He has not seen the sleep specialist for years and was just ordering his own supplies on line. He was going to [facility]. He works in [place] so we recommend Dr. Pineda for a re-evaluation as he continues to gain weight and is frustrated that he cannot lose it. Beatrice Finley MD [address] [place] [address], [address], [place], [address], [facility] 03/30/2024 15:28:00
--- OUTSIDE RECORDS SUMMARY | 2025-01-10 23:08 | XMS_ITS | Clinical Summary ---
[facility] Address [address] [place] [address] Care Team Providers Care Harness Repairer Name Role Phone Provider, No Known Primary Care Provider [phone] Social History Tobacco Use Types Packs/Day Years Used Date Smoking Tobacco: Never Assessed Abuse Screen Answer Date Recorded Unsafe at Home or Work/School Not on file Feels Threatened by Someone? Not on file 01/2023 Does Anyone Keep You from Co ntacting Others or Doint Things Outside the Home? Not on file 12/26/2022 Physical Sign of Abuse Present Not on file 1 Housing Stability Answer Date Recorded Current Living Arrangements Not on file 12/16 Potentially Unsafe Housing Conditions Not on rosa e 12/26/2022 Family and Community Support Answer Jaron e Recorded Help with Day-to-Day Activities Not on file 12/26/2022 Lonely or Isolated Not on file 12/26/2022 Employment Answer Date Recorded Do you want help finding or keeping work or a jonelle b? Not on file 12/26/2022 Disabilities Answer Date Recorded Concentrating, Remembering, or Making Decisions Difficulty Not on file 12/26/2022 Doing Errands Independently Difficulty Not on fi le 12/26/2022 Education Answer Date Recorded Help with school or training? Not on file Preferred Language Not on file 12/26/2022 Sex and Gender Information Value Date Recorded Sex Assigned at Not on file Legal Sex Male 8:53 AM EST Gender Identity Not on file Sexual Orientation Not on file Plan of Treatment Health Maintenance Due Date Last Done Comments ANNUAL PHYSICAL 1973 HEPATITIS C SCREENING 1973 TDAP/TD VACCINES (1 - Tdap) 02/05/1992 COLOGUARD 2018 COLON CANCER SCREENING 5 YEAR SIGMOIDOSCOPY 2018 COLONOSCOPY 2018 [address] CANCER SCREENING 2018 CT COLONOGRAPHY 2018 FECAL OCCULT BLOOD TEST 2018 FIT Testing (1 year) 2018 Pneumococcal Vaccine 50+ (1 of 1 - PCV) 2023 ZOSTER VACCINE (1 of 2) 2023 INFLUENZA VACCINE 10/16/2024 Insurance [facility] Care Teams Harness Repairer Relationship Specialty Start Date End Date [place], [place] [address] PCP - General 02/29/16
--- OUTSIDE RECORDS SUMMARY | 2025-01-10 23:08 | XMS_ITS | Referral Summary ---
Author Organization [employer] ([place], [place], [place], [place]) Address [address] [place] [address] Care Team Providers Care Progressive Die Maker Name Role Phone Beatrice [place] MD Primary Care Provider [phone] Sonali Mccray APRN Unavailable [phone] Encounters Date Type Department Care Team Description 12/24/2024 Orders Only [facility] Neurology [facility] [address] [place] [address] Kandace Monge CMA Migraine without aura, not intractable, without status migrainosus 12/18/2024 Refill [facility] [address] [place] [address] Sonali Mccray, REINFORCEMENT MAKER Migraine without aura, not intractable, without status migrainosus from Last 3 Months Allergies Active Allergy Reactions Criticality Noted Date [...] eorder) Active Problems No known active problems Social History Tobacco Use Types Packs/Day Years [...] Date Danilo rded Speak language other than Persian at home Not on file 04/05/2023 Want [...] Description 04/01/2025 2:45 PM EST Office Visit [facility] Neurology - [facility] [address] [facility] [address] [place] [address] Sonali Mccray, REINFORCEMENT MAKER [address] [facility] [address] [place] [address] Insurance BLUE CROSS/BLUE SHIELD Care Teams Progressive Die Maker Relationship Specialty Start Date End Date Beatrice Finley MD [address] [facility] [address] [place] [address] PCP - General Family Medicine 10/30/22 Sonali Mccray, REINFORCEMENT MAKER [address] [place] [address] Neurology 12/18/23
--- OUTSIDE RECORDS SUMMARY | 2025-01-10 23:08 | XMS_ITS | Encounter Summary ---
Author Organization [employer] ([place], [place], [place], [place]) Address [address] [place] [address] Care Team Providers Care Global Sourcing Manager Name Role Phone Beatrice Fin[place] MD Primary Care Provider [phone] Sonali Mccray STAFF COMBAT INFORMATION CENTER OFFICER Unavailable [phone] Reason for Visit * Reason Comments Medication Refill Encounter Details Date Type Department Care Team (Late st Contact Info) Description 08/30/2022 Refill [facility] Neurology - [facility] [address] [place] [phone] Yanet Vasquez APRN [address] [facility] [address] [place] [address] Migraine without aura, not intractable, without status [...] Description 04/01/2025 2:45 PM EST Office Visit [facility] Neurology - [facility] [address] [place] [address] Sonali Mccray, STAFF COMBAT INFORMATION CENTER OFFICER [address] [facility] [address] [place] [address] documented as of this encounter Visit Diagnoses Diagnosis Migraine without aura, not intractable, without status migrainosus documented in this encounter Care Teams Global Sourcing Manager Relationship Specialty Start Date End Date Beatrice Finley MD [address] [place] [phone] PCP - General Family Medicine 10/30/22 Sonali Mccray, STAFF COMBAT INFORMATION CENTER OFFICER [address] [place] [address] Neurology 12/18/23 documented as of this encounter
--- OUTSIDE RECORDS SUMMARY | 2025-01-10 23:08 | XMS_ITS | Encounter Summary ---
Author Organization [employer] ([place], [place], [place], [place]) Address [address] [place] [address] Care Team Providers Care Wire Technician Name Role Phone Beatrice Finley MD Primary Care Provider [phone] Sonali Mccray STAND GRINDER Unavailable [phone] Encounter Details Date Type Department Care Team (Late st Contact Info) Description 12/24/2024 Orders Only [facility] Neurology - [facility] [address] [facility] [address] [place] [address] Kandace Monge CMA Migraine without [...] Date Danilo rded Speak language other than Brazilian at home Not on file 04/05/2023 Want [...] Upcoming Encounters Date Type Department Care Team ([facility] st Contact Info) Description 04/01/2025 2:45 PM EST Office Visit [facility] Neurology - [facility] [address] [place] [address] [address] [place] [address] Sonali Mccray, ADELSO [address] [facility] [address] [place] [address] documented as of this encounter Visit Diagnoses Diagnosis Migraine without aura, not intractable, without status migrainosus documented in this encounter Care Teams Wire Technician Relationship Specialty Start Date End Date Beatrice Finley MD [address] [place] [address] 7 [place] [phone] PCP - General Family Medicine 10/30/22 Sonali Mccray, STAND GRINDER [address] [facility] [address] [place], [place] [id number] Neurology 12/18/23 documented as of this encounter
[2025-01-10 23:19] LABS: Microscopic, Urine URINE MICROSCOPIC (MICROSCOPIC)
[2025-01-10 23:21] LABS: Bilirubin,Urine Negative (Negative); Color,Urine YELLOW (Yellow); Glucose,Urine (UA) Negative (Negative); Ketones,Urine 1+ (Negative); Leukocyte Esterase,Urine Negative (Negative); PH,Urine 7.0 (5.0-8.5); Protein,Urine TRACE (Negative); Specific Gravity, Urine 1.020 (1.005-1.030); Urobilinogen,Urine 0.2 EU/dl (0.2)
--- NOTE | 2025-01-10 23:21 | CT_ITS ---
PROCEDURE INFORMATION: Exam: CT Abdomen And Pelvis With Contrast Exam date and time: 01/11/2025 12:05 AM Age: 49 years old Clinical indication: Abdominal pain; Additional info: Acute severe l>r upper abd pain TECHNIQUE: Imaging protocol: Computed tomography of the abdomen and pelvis with contrast. Radiation optimization: All CT scans at this facility use at least one of these dose optimization techniques: automated exposure control; mA and/or kV adjustment per patient size (includes targeted exams where dose is matched to clinical indication); or iterative reconstruction. Contrast material: ISOVUE; Contrast volume: 75 ml; Contrast route: IV; COMPARISON: No relevant prior studies available. FINDINGS: Lungs: Basilar scarring/atelectasis with some mild bronchiectasis. Heart: Base of heart is unremarkable as visualized. Liver: Normal. No mass. Gallbladder and biliary ducts: Normal. No calcified stones. No ductal dilation. Pancreas: Normal. No ductal dilation. Spleen: Normal. No splenomegaly. Adrenal glands: Normal. No mass. Kidneys and ureters: Normal. No hydronephrosis. Stomach and bowel: Prominent fluid-filled loops of small bowel are noted in the right lower and right upper quadrants with the adjacent mesenteric edema. Some fecalization seen suggesting stasis. These loops of bowel appear adherent to the anterior right peritoneal reflection. Diverticulosis without evidence of diverticulitis. Large bowel is diffusely collapsed. Appendix: No evidence of appendicitis. Intraperitoneal space: Small foci of mesenteric edema/stranding emanate from the prominent loops of small bowel in the right upper and right lower quadrants. Vasculature: Unremarkable. No abdominal aortic aneurysm. Lymph nodes: Unremarkable. No enlarged lymph nodes. Urinary bladder: Unremarkable as visualized. Reproductive: Unremarkable as visualized. Bones/joints: Degenerative change of the spine. Soft tissues: Unremarkable. IMPRESSION: Small bowel findings detailed above suggest enteritis with ileus, however, early obstruction could appear similarly.
[2025-01-10 23:22] LABS: Hematocrit 47.1 % (42.0-52.0); Hemoglobin 16.1 g/dL (14.1-18.0); Immature Granulocytes % 0.4 %; Mean Corpuscular HGB Conc 34.2 g/dL (31.8-35.4); Mean Corpuscular Hemoglobin 30.4 pg (27.0-31.2); Mean Corpuscular Volume 88.9 fl (80-94); Nucleated Red Blood Cells % 0 %; Platelet Count 198 K/mm3 (142-424); Red Blood Count 5.30 M/mm3 (4.60-6.20); Red Cell Distribution Width-SD 45.1 fL; White Blood Count 11.8 K/mm3 (4.8-10.8)
[2025-01-10 23:23] VITALS: PULSE 76; O2SAT 95
--- NOTE | 2025-01-10 23:28 | ECG_ITS ---
APPROVED REPORT Exam: Resting ECG HR:75 bpm ECG Measurements Heart Rate 75 AXES MI 162 P 53 QRSd 108 QRS 66 QT 381 T 1 QTc 409 Conclusion SINUS RHYTHM INDETERMINATE AXIS INFERIOR MYOCARDIAL INFARCTION , PROBABLY OLD [40+ ms Q WAVE AND/OR ST/T ABNORMALITY IN II/aVF] ABNORMAL ECG UNCONFIRMED REPORT Electronically signed by : AVA SCHMITZ, 01/12/2025 06:30:39
[2025-01-10 23:30] VITALS: PULSE 75; O2SAT 94
[2025-01-10 23:31] VITALS: BP 129/78; PULSE 74; O2SAT 95
[2025-01-10 23:31] LABS: Alanine Aminotransferase 38 U/L (12-78); Albumin Level 3.9 g/dl (3.5-5.0); Albumin/Globulin Ratio 1.1 (1.1-1.8); Alkaline Phosphatase 86 U/L (38-126); Anion Gap 12.9 mEq/L (5-15); Aspartate Amino Transferase 37 U/L (17-59); Bilirubin,Total 1.0 mg/dl (0.2-1.3); Blood Urea Nitrogen 17 mg/dl (9-20); Calcium 9.5 mg/dl (8.4-10.2); Carbon Dioxide 28 mmol/L (22.0-30.0); Chloride 100 mmol/L (98-107); Creatinine Clearance Estimated 136 mL/min (50-200); Creatinine,Serum 1.20 mg/dl (0.66-1.25); Estimated Glomerular Filt Rate 64 ml/min (>60); GFR (African American) 77 ML/MIN (>60); Globulin 3.6 g/dL (1.3-3.2); Glucose 138 mg/dl (74-100); Lipase 89 U/L (23-300); Potassium 3.9 mmoL/L (3.5-5.1); Sodium 137 mmol/L (136-145); Total Protein,Serum 7.5 g/dl (6.3-8.2)
[2025-01-10] MEDS: BELLADONNA ALKALOIDS 60 ML ML PO (23:35)
[2025-01-10] MEDS: MORPHINE 4MG/ML SYRINGE 4 MG IV (23:36)
[2025-01-10] MEDS: ACETAMINOPHEN 500MG TAB 1000 MG PO (23:36)
[2025-01-10] MEDS: ONDANSETRON 4MG/2ML VIAL 4 MG IV (23:36)
[2025-01-10] MEDS: KETOROLAC 30MG/ML VIAL 30 MG IV (23:36)
[2025-01-10 23:45] VITALS: PULSE 79
[2025-01-10 23:56] LABS: Troponin I < 0.01 ng/ml (0.00-0.034)
[2025-01-11] VITALS (13 sets, daily range): BP systolic 112–152; BP diastolic 61–72; PULSE 55–102; RESP 14–18; TEMP 36.4–36.9; O2SAT 94–97; BMI 34.7; BMI 34.6
[2025-01-11] MEDS: IOPAMIDOL-370 (76%);100ML BOTTLE 75 ML IV (00:11)
[2025-01-11] MEDS: SODIUM CHLORIDE 0.9% 10ML SYR (RAD ONLY) 10 ML IV (00:12)
[2025-01-11] MEDS: LACTATED RINGERS 1000ML 1,000 ML 999 ML IV (00:49)
--- NOTE | 2025-01-11 00:59 | PC.NURSE ---
Report given to Sue WHITAKER on [facility]
--- NOTE | 2025-01-11 01:47 | PC.NURSE ---
Patient arrived to floor via wheelchair from ED at 01:29.
--- NOTE | 2025-01-11 02:13 | PC.NURSE ---
$304 in wallet locked in drawer and witnessed with Jose Francois RN.
[2025-01-11] MEDS: LACTATED RINGERS 1000ML 1,000 ML 100 ML IV (02:37)
[2025-01-11 03:31] LABS: Troponin I < 0.01 ng/ml (0.00-0.034)
--- NOTE | 2025-01-11 04:19 | PC.NURSE ---
Pt admitted this shift. Pt c/o abd pain upon admission, but did not want any pain medication at that time. Pt reports pain is much better than he came to ED. Abdomen is soft, and slightly tender with palpation, mostly in upper quadrants. Pt has had no other needs or complaints. Denies nausea. No vomiting. Remains on RA. VSS. Has been sleeping intermittently. Call light in reach.
--- NOTE | 2025-01-11 05:26 | EXP.HP ---
History of Present Illness *Admission Date: 01/11/25 *Reason for visit:: Abdominal pain *History of present illness: Patient is a 49-year-old male with past medical history significant for hypertension, diastolic dysfunction, severe NAVA, gout, migraines. Patient presents to [facility] due to abdominal pain. Reports upper bilateral abdominal pain with associated nausea and vomiting. Reports onset earlier within the day, few hours prior to his arrival to the emergency department. Reports having a bowel movement at 7 AM, described as brown formed stool. Reports passing stool without difficulty. Ultimately developing severe upper abdominal pain hours later. Denies any prior similar symptoms or history of abdominal surgeries. Hemodynamically stable. Denies fever, chills, shortness of breath or chest pain. Initial ED workup included laboratory studies and imaging. Significant findings included WBC 11.8, CT abdomen findings a small bowel enteritis with ileus versus early obstruction. Received IV fluids and pain medication with morphine. [facility] Disclaimer: The information contained in this section may have been updated after the patient was seen, as this information can be updated by other users. Medical History Abnormal ECG Chest pain Family history of ischemic heart disease Arrhythmia NAVA (obstructive sleep apnea) Diastolic dysfunction HTN (hypertension) SOB (shortness of breath) on exertion Family History Father Lupus Social History Smoking Status: Never smoker alcohol intake: current alcohol intake frequency: holidays/special occasions only substance use type: denies use current occupational status: employed Travel in the last 8 weeks?: Inside the [place] household members: none housing: house Have you lived/traveled outside US in past 30 days?: No Contact w/someone who lives/traveled outside US past 30 days?: No Exposure to someone with infectious disease in past 14 days?: No Do you have a fever (greater than 100.4 F or 38 C)?: No Have you tested positive for COVID-19?: No Exposed to someone with COVID-19 in past 14 days?: No Do you have a sore throat?: No Do you have a cough?: No Do you have any weakness?: No Are you experiencing any nausea/vomitting?: Yes Do you have any diarrhea?: No Are you experiencing any unusual bleeding?: No Do you have any muscle aches/pain?: No Do you have any abdominal pain?: Yes Are you experiencing loss of taste or smell?: No Other Medical History Have you received the Flu Vaccine for this season: No Have you received the Pneumonia Vaccine: No Review of Systems Review of Systems Review of systems:: pertinent systems reviewed and negative unless documented below Constitutional Constitutional: Reports system reviewed and no additional complaints, except as documented Eyes Eyes: Reports system reviewed and no additional complaints, except as documented ENT Ears, Nose, Mouth, and Throat: Reports system reviewed and no additional complaints, except as documented *Cardiovascular Cardiovascular: Reports system reviewed and no additional complaints, except as documented *Respiratory Respiratory: Reports system reviewed and no additional complaints, except as documented *Gastrointestinal Gastrointestinal: Reports abdominal pain *Genitourinary Genitourinary: Reports system reviewed and no additional complaints, except as documented *Musculoskeletal Musculoskeletal: Reports system reviewed and no additional complaints, except as documented Integumentary/Breasts Skin/Breast: Reports system reviewed and no additional complaints, except as documented *Neurologic Neurologic: Reports system reviewed and no additional complaints, except as documented Psychiatric Psychiatric: Reports system reviewed and no additional complaints, except as documented Endocrine Endocrine: Reports system reviewed and no additional complaints, except as documented Hematologic/Lymphatic Hematologic/Lymphatic: Reports system reviewed and no additional complaints, except as documented Allergic/Immunologic Allergic/Immunologic: Reports system reviewed and no additional complaints, except as documented Meds Home Medications and Allergies Home Medications ?Medication ?Instructions ?Recorded ?Confirmed ?Type allopurinol 100 mg tablet 100 mg PO DAILY 05/13/19 12/27/23 History rizatriptan 10 mg disintegrating 10 mg PO Q2H PRN migraine 10/28/19 01/11/25 History tablet propranolol 80 mg capsule,24 80 mg PO DAILY 01/27/20 01/11/25 History hr,extended release colchicine 0.6 mg tablet (Colcrys) 0.6 mg PO BID PRN ukn 05/23/21 12/27/23 History omeprazole 40 mg capsule,delayed 40 mg PO DAILY 05/23/21 12/27/23 History release levothyroxine 112 mcg tablet 112 mcg PO DAILY 12/17/23 01/11/25 History rosuvastatin 10 mg tablet 10 mg PO HS 12/17/23 01/11/25 History azelastine 137 mcg-fluticasone 50 4 spray intranasal DAILY 01/11/25 01/11/25 History mcg/spray nasal spray New Prescriptions to Start Prescriptions: Allergies Allergy/AdvReac Type Severity Reaction Status Date / Time Penicillins Allergy Unknown Unknown Verified 12/27/23 08:52 allergy reaction Sulfa (Sulfonamide Allergy Hives Verified 12/27/23 08:52 Antibiotics) Exam Data for Last 24 hours Vital signs and Labs for Last 24 Hours: Temp Pulse Resp BP Pulse Ox O2 Del Method 98 F 70 14 125/72 94 L Room Air 01/11/25 04:00 01/11/25 04:00 01/11/25 04:00 01/11/25 04:00 01/11/25 04:00 01/11/25 04:00 Laboratory Results - last 24 hr 01/10/25 23:10: WBC 11.8 H, RBC 5.30, Hgb 16.1, Hct 47.1, MCV 88.9, MCH 30.4, MCHC 34.2, RDW 14.1, Plt Count 198, MPV 9.4, Neut % (Auto) 81.3 H, Lymph % (Auto) 10.9, [place] % (Auto) 6.1, Eos % (Auto) 0.7, Baso % (Auto) 0.6, Neut # (Auto) 9.6 H, Lymph # (Auto) 1.3, [place] # (Auto) 0.7, Eos # (Auto) 0.1, Baso # (Auto) 0.1, Sodium 137, Potassium 3.9, Chloride 100, Carbon Dioxide 28, Anion Gap 12.9, BUN 17, Creatinine 1.20, Estimated Creat Clear 136, Estimated GFR 64, Est GFR ( Amer) 77, Glucose 138 H, Calcium 9.5, Total Bilirubin 1.0, AST 37, ALT 38, Alkaline Phosphatase 86, Troponin I < 0.01, Total Protein 7.5, Albumin 3.9, Globulin 3.6 H, Albumin/Globulin Ratio 1.1, Lipase 89 01/10/25 23:13: Urine Color Yellow, Urine Appearance Clear, Urine pH 7.0, Ur Specific [place] 1.020, Urine Protein Trace, Urine Glucose (UA) Negative, Urine Ketones 1+, Urine Blood Negative, Urine Nitrate Negative, Urine Bilirubin Negative, Urine Urobilinogen 0.2, Ur Leukocyte Esterase Negative, Urine RBC None, Urine WBC None, Ur Squamous Epith Cells None, Urine Bacteria None 01/11/25 02:32: Troponin I < 0.01 I & O for Last 24 hours: Intake & Output 01/08/25 01/09/25 01/10/25 01/11/25 23:59 23:59 23:59 23:59 Intake Total 1000 / 1000 Balance 1000 / 1000 Weight 131.542 kg 132.948 kg Constitutional Constitutional: mild distress *Routine HEENT Exam Head: Present normocephalic Eye: Present EOMI and PERRL ENT: Present mucous membranes moist *Routine Neck Exam Neck: Present supple and full ROM *Routine Respiratory Exam Respiratory: Present normal respiratory effort *Routine Cardiovascular Exam Cardiovascular: Present RRR, Normal S1 and Normal S2 *Routine Abdominal Exam Abdominal: Present soft, normoactive bowel sounds and tenderness *Routine Rectal Exam Rectal:: deferred *Routine Genitalia Exam Genitalia:: deferred *Routine Skin Exam Skin: Present intact *Routine Neurological Exam Neurological: Present alert, oriented X3 and CN II-XII intact Routine Psychiatric Exam Psychiatric: Present normal affect Assessment and Plan *Assessment and plan (1) Abnormal CT of the abdomen: Status: Acute Category: Medical Code(s): R93.5 - Abnormal findings on diagnostic imaging of other abdominal regions, including retroperitoneum (2) Bowel obstruction: Status: Acute Qualifiers: Intestinal obstruction type: unspecified ileus Qualified Code(s): K56.7 - Ileus, unspecified Category: Medical Code(s): K56.609 - Unspecified intestinal obstruction, unspecified as to partial versus complete obstruction (3) NAVA (obstructive sleep apnea): Status: Acute Category: Medical Code(s): G47.33 - Obstructive sleep apnea (adult) (pediatric) (4) Diastolic dysfunction: Status: Chronic Category: Medical Code(s): I51.89 - Other ill-defined heart diseases (5) HTN (hypertension): Status: Chronic Qualifiers: Hypertension type: essential hypertension Qualified Code(s): I10 - Essential (primary) hypertension Category: Medical Code(s): I10 - Essential (primary) hypertension (6) Hypothyroidism: Status: Acute Qualifiers: Hypothyroidism type: unspecified Qualified Code(s): E03.9 - Hypothyroidism, unspecified Category: Medical Code(s): E03.9 - Hypothyroidism, unspecified (7) History of migraine headaches: Status: Acute Category: Medical Code(s): Z86.69 - Personal history of other diseases of the nervous system and sense organs Plan 1. Abnormal CT of the abdomen/bowel obstruction?: CT abdomen with evidence of small bowel findings suggest enteritis with ileus vs early obstruction. Reported last bowel movement at 7 AM. Since has developed severe upper bilateral abdominal pain with associated nausea and vomiting. Denies any abdominal surgical history. NPO, IV fluids, antiemetics and pain management with IV morphine. Appreciate input/evaluation per surgical team. 2. 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 Encouraged continued use and importance due to his severe history of NAVA. Resume usage nightly while sleeping. 3. HTN/diastolic dysfunction: Blood pressure within normal limits. ECHO-(2023)Normal LV systolic function. Mild to moderate RV dilation with mildly reduced RV function.Mild TR. RVSP 20-25 mmHg. function. LVEF is calculated at 54%. 4. Hypothyroidism: Resume home medication Synthroid when appropriate when able to resume oral medication. 5. History of migraine headaches: Currently without complaints and or complication-follows with [facility], resume home medications appropriate when able to restart oral medication. 6. DVT prophylaxis: SCDs I personally discussed the management of this patient with the emergency department provider. Patient presents with bilateral upper abdominal pain. CT abdomen suggestive of ileus versus small bowel obstruction. IV fluids, antiemetics and pain medication for management of nausea vomiting and pain. Appreciate input per surgical team. Bowel rest- n.p.o. resume IV fluids, antiemetics and pain medication.
--- NOTE | 2025-01-11 06:17 | EXP.SURG.CON ---
History of Present Illness *Admission Date: 01/11/25 *Reason for visit:: Possible bowel obstruction *History of present illness: Patient is 49-year-old male with history of hypertension, diastolic dysfunction, severe obstructive sleep apnea, gout, migraines. He presented to [facility] emergency department early this morning with bilateral upper abdominal pain. He was found to have a mild leukocytosis of 11,800. He underwent CT scan of the abdomen and pelvis which suggested findings consistent with enteritis with ileus however early small bowel obstruction could appear similarly. He was admitted for inpatient management and surgical consultation was obtained. Patient has never had prior abdominal surgery. He did move his bowels last night. He states that he always has somewhat loose bowel movements. He has had a couple previous colonoscopies last one reportedly a couple of years ago and unremarkable. . [facility] Disclaimer: The information contained in this section may have been updated after the patient was seen, as this information can be updated by other users. Medical History Abnormal ECG Chest pain Family history of ischemic heart disease Arrhythmia NAVA (obstructive sleep apnea) Diastolic dysfunction HTN (hypertension) SOB (shortness of breath) on exertion Family History Father Lupus Social History Smoking Status: Never smoker alcohol intake: current alcohol intake frequency: holidays/special occasions only substance use type: denies use current occupational status: employed Travel in the last 8 weeks?: Inside the [place] household members: none housing: house Have you lived/traveled outside US in past 30 days?: No Contact w/someone who lives/traveled outside US past 30 days?: No Exposure to someone with infectious disease in past 14 days?: No Do you have a fever (greater than 100.4 F or 38 C)?: No Have you tested positive for COVID-19?: No Exposed to someone with COVID-19 in past 14 days?: No Do you have a sore throat?: No Do you have a cough?: No Do you have any weakness?: No Are you experiencing any nausea/vomitting?: Yes Do you have any diarrhea?: No Are you experiencing any unusual bleeding?: No Do you have any muscle aches/pain?: No Do you have any abdominal pain?: Yes Are you experiencing loss of taste or smell?: No Review of Systems *Neurologic Neurologic: Reports system reviewed and no additional complaints, except as documented Meds Home Medications and Allergies Home Medications ?Medication ?Instructions ?Recorded ?Confirmed ?Type allopurinol 100 mg tablet 100 mg PO DAILY 05/13/19 12/27/23 History rizatriptan 10 mg disintegrating 10 mg PO Q2H PRN migraine 10/28/19 01/11/25 History tablet propranolol 80 mg capsule,24 80 mg PO DAILY 01/27/20 01/11/25 History hr,extended release colchicine 0.6 mg tablet (Colcrys) 0.6 mg PO BID PRN ukn 05/23/21 12/27/23 History omeprazole 40 mg capsule,delayed 40 mg PO DAILY 05/23/21 12/27/23 History release levothyroxine 112 mcg tablet 112 mcg PO DAILY 12/17/23 01/11/25 History rosuvastatin 10 mg tablet 10 mg PO HS 12/17/23 01/11/25 History azelastine 137 mcg-fluticasone 50 4 spray intranasal DAILY 01/11/25 01/11/25 History mcg/spray nasal spray New Prescriptions to Start Prescriptions: Allergies Allergy/AdvReac Type Severity Reaction Status Date / Time Penicillins Allergy Unknown Unknown Verified 12/27/23 08:52 allergy reaction Sulfa (Sulfonamide Allergy Hives Verified 12/27/23 08:52 Antibiotics) Exam (Inpt) Vital signs and Labs for Last 24 Hours: Temp Pulse Resp BP Pulse Ox O2 Del Method 98 F 70 14 125/72 94 L Room Air 01/11/25 04:00 01/11/25 04:00 01/11/25 04:00 01/11/25 04:00 01/11/25 04:00 01/11/25 05:00 Laboratory Results - last 24 hr 01/10/25 23:10: WBC 11.8 H, RBC 5.30, Hgb 16.1, Hct 47.1, MCV 88.9, MCH 30.4, MCHC 34.2, RDW 14.1, Plt Count 198, MPV 9.4, Neut % (Auto) 81.3 H, Lymph % (Auto) 10.9, [place] % (Auto) 6.1, Eos % (Auto) 0.7, Baso % (Auto) 0.6, Neut # (Auto) 9.6 H, Lymph # (Auto) 1.3, [place] # (Auto) 0.7, Eos # (Auto) 0.1, Baso # (Auto) 0.1, Sodium 137, Potassium 3.9, Chloride 100, Carbon Dioxide 28, Anion Gap 12.9, BUN 17, Creatinine 1.20, Estimated Creat Clear 136, Estimated GFR 64, Est GFR ( Amer) 77, Glucose 138 H, Calcium 9.5, Total Bilirubin 1.0, AST 37, ALT 38, Alkaline Phosphatase 86, Troponin I < 0.01, Total Protein 7.5, Albumin 3.9, Globulin 3.6 H, Albumin/Globulin Ratio 1.1, Lipase 89 01/10/25 23:13: Urine Color Yellow, Urine Appearance Clear, Urine pH 7.0, Ur Specific [place] 1.020, Urine Protein Trace, Urine Glucose (UA) Negative, Urine Ketones 1+, Urine Blood Negative, Urine Nitrate Negative, Urine Bilirubin Negative, Urine Urobilinogen 0.2, Ur Leukocyte Esterase Negative, Urine RBC None, Urine WBC None, Ur Squamous Epith Cells None, Urine Bacteria None 01/11/25 02:32: Troponin I < 0.01 I & O for Labs for Last 24 Hours: Intake & Output 01/08/25 01/09/25 01/10/25 01/11/25 11:59 11:59 11:59 11:59 Intake Total 1000 / 1000 Balance 1000 / 1000 Weight 293 lb 1.6 oz Constitutional: no acute distress GI: Present soft; Absent tenderness Results Labs 01/10/25 23:10 01/10/25 23:10 Labs: Laboratory Results - last 24 hr 01/10/25 23:10: WBC 11.8 H, RBC 5.30, Hgb 16.1, Hct 47.1, MCV 88.9, MCH 30.4, MCHC 34.2, RDW 14.1, Plt Count 198, MPV 9.4, Neut % (Auto) 81.3 H, Lymph % (Auto) 10.9, [place] % (Auto) 6.1, Eos % (Auto) 0.7, Baso % (Auto) 0.6, Neut # (Auto) 9.6 H, Lymph # (Auto) 1.3, [place] # (Auto) 0.7, Eos # (Auto) 0.1, Baso # (Auto) 0.1, Sodium 137, Potassium 3.9, Chloride 100, Carbon Dioxide 28, Anion Gap 12.9, BUN 17, Creatinine 1.20, Estimated Creat Clear 136, Estimated GFR 64, Est GFR ( Amer) 77, Glucose 138 H, Calcium 9.5, Total Bilirubin 1.0, AST 37, ALT 38, Alkaline Phosphatase 86, Troponin I < 0.01, Total Protein 7.5, Albumin 3.9, Globulin 3.6 H, Albumin/Globulin Ratio 1.1, Lipase 89 01/10/25 23:13: Urine Color Yellow, Urine Appearance Clear, Urine pH 7.0, Ur Specific [place] 1.020, Urine Protein Trace, Urine Glucose (UA) Negative, Urine Ketones 1+, Urine Blood Negative, Urine Nitrate Negative, Urine Bilirubin Negative, Urine Urobilinogen 0.2, Ur Leukocyte Esterase Negative, Urine RBC None, Urine WBC None, Ur Squamous Epith Cells None, Urine Bacteria None 01/11/25 02:32: Troponin I < 0.01 Assessment and Plan *Assessment and plan (1) Abnormal CT of the abdomen: Status: Acute Category: Medical Code(s): R93.5 - Abnormal findings on diagnostic imaging of other abdominal regions, including retroperitoneum (2) Ileus: Status: Acute Category: Medical Code(s): K56.7 - Ileus, unspecified Plan Ileus versus small bowel obstruction. I will see if he can undergo a small bowel follow-through for diagnostic and potentially therapeutic results.
[2025-01-11] MEDS: MORPHINE 2MG/ML SYRINGE 2 MG IV (06:51)
[2025-01-11 07:11] LABS: Troponin I < 0.01 ng/ml (0.00-0.034)
--- NOTE | 2025-01-11 07:23 | FL_ITS ---
FINAL REPORT CLINICAL HISTORY: ABDOMINAL PAIN, POSSIBLE BOWEL OBSTRUCTION FINDINGS: SMALL BOWEL FOLLOW-THROUGH HISTORY: Acute generalized abdominal pain. Abnormal CT of the abdomen and pelvis. Possible small bowel obstruction. Fluoroscopy Time: 26 seconds Radiation dose in reference to Air-Kerma: 102.09 mGy. PROCEDURE: The patient ingested Gastrografin. Spot and overhead films were obtained. FINDINGS: There are multiple dilated loops of small bowel. Contrast is seen within the colon on the 3 hour 15 minute radiograph. No transition point is identified. IMPRESSION: Diffusely dilated small bowel loops, likely related to ileus. No complete obstruction identified. Reviewed, Interpreted and Dictated by Vitor Bess MD Transcribed by CAMERON Graham Authenticated and [facility]
--- NOTE | 2025-01-11 11:02 | EXP.EVENT.NO ---
Mr. Russo is a 49-year-old male who presented to the emergency department yesterday evening with complaints of abdominal pain, nausea, vomiting. Workup in the emergency department was significant for small bowel enteritis with ileus versus early obstruction. Hospital medicine was consulted for admission and agreed to admit the patient for continued monitoring and treatment. Plan of care as follows: #Abdominal pain #Ileus versus SBO ? Patient initially made n.p.o. IV fluids, antibiotics, and pain management with IV morphine initiated. General surgery consulted and recommendation for small bowel follow-through. Small bowel follow-through significant for small bowel ileus without evidence of obstruction. Clear liquid diet ordered. Patient tolerated without issue. Patient can continues to complain of intermittent abdominal pain. Denies nausea, vomiting, diarrhea, fever, chills, chest pain, shortness of breath. ?Patient denies history of any abdominal surgery. States he has had multiple colonoscopies in the past without issues. Reports he is having bowel movements and passing gas. Repeat x-ray in the AM. ?CBC shows very mildly elevated WBC at 11.8. No electrolyte abnormalities, normal kidney function. Serial troponin negative, UA unremarkable. ?CBC, CMP, magnesium ordered for the a.m. #Hypothyroid: Patient has known hypothyroid, TSH pending. Levothyroxine 150 mcg daily ordered. #NAVA: Patient states he has severe sleep apnea. Encouraged to use during admission nightly. #Continue Flonase twice daily, propranolol 80 mg daily. Full code VTE?SCUDs Clear liquid diet Ambulate as tolerated
[2025-01-11] MEDS: MORPHINE 4MG/ML SYRINGE 2 MG IV (11:57)
[2025-01-11] MEDS: DIATRIZOATE MEGLUMINE(GASTROGRAFIN) 66%-10% 120ML 240 ML PO (12:04)
--- NOTE | 2025-01-11 14:31 | PC.NURSE ---
iv paused at pt request
[2025-01-11 16:36] LABS: Thyroid Stimulating Hormone 3.10 uIU/mL (0.465-4.68)
[2025-01-12 04:00] VITALS: BP 133/68; PULSE 55; RESP 14; TEMP 36.6; O2SAT 91; BMI 34.1
[2025-01-12 04:13] LABS: Hemoglobin A1C 5.8 % (4.0-6.0)
--- NOTE | 2025-01-12 06:00 | XR_ITS ---
PROCEDURE INFORMATION: Exam: XR Complete Acute Abdomen Series Including Chest Exam date and time: 01/12/2025 5:20 AM Age: 49 years old Clinical indication: Abdominal pain TECHNIQUE: Imaging protocol: Radiologic exam. Complete acute abdomen series, including 2 or more views of the abdomen and a single view chest. COMPARISON: CT ABDOMEN PELVIS W CON 01/11/2025 12:05 AM FINDINGS: Lungs: Low lung volumes. Bibasilar atelectasis. No consolidation. Pleural spaces: No significant pleural effusions. No pneumothorax. Heart/Mediastinum: Unremarkable. No cardiomegaly. Gastrointestinal tract: Nonspecific bowel gas pattern with few scattered gas-filled loops of nondilated small bowel as well as gas and residual enteric contrast throughout colon. Intraperitoneal space: No free air. Bones/joints: No acute bony abnormalities. Mild degenerative changes. Soft tissues: Unremarkable. Other findings: Vasectomy clips. IMPRESSION: 1. Nonspecific bowel gas pattern with residual enteric contrast throughout colon. 2. No free air. 3. Hypoventilatory change with bibasilar subsegmental atelectasis.
[2025-01-12] MEDS: LEVOTHYROXINE 150MCG (0.15MG)TAB 150 MCG PO (06:03)
[2025-01-12 06:06] LABS: Hematocrit 45.5 % (42.0-52.0); Hemoglobin 15.0 g/dL (14.1-18.0); Immature Granulocytes % 0.5 %; Mean Corpuscular HGB Conc 33.0 g/dL (31.8-35.4); Mean Corpuscular Hemoglobin 29.9 pg (27.0-31.2); Mean Corpuscular Volume 90.8 fl (80-94); Nucleated Red Blood Cells % 0 %; Platelet Count 188 K/mm3 (142-424); Red Blood Count 5.01 M/mm3 (4.60-6.20); Red Cell Distribution Width-SD 48.1 fL; White Blood Count 6.5 K/mm3 (4.8-10.8)
[2025-01-12 06:19] LABS: Anion Gap 7.8 mEq/L (5-15); Blood Urea Nitrogen 19 mg/dl (9-20); Calcium 8.8 mg/dl (8.4-10.2); Carbon Dioxide 28 mmol/L (22.0-30.0); Chloride 105 mmol/L (98-107); Creatinine Clearance Estimated 135 mL/min (50-200); Creatinine,Serum 1.20 mg/dl (0.66-1.25); Estimated Glomerular Filt Rate 64 ml/min (>60); GFR (African American) 77 ML/MIN (>60); Glucose 104 mg/dl (74-100); Potassium 3.8 mmoL/L (3.5-5.1); Sodium 137 mmol/L (136-145)
[2025-01-12 07:22] VITALS: BP 135/70; PULSE 65; RESP 17; TEMP 36.8; O2SAT 96
--- NOTE | 2025-01-12 07:55 | P.PN_ITS ---
Subjective Narrative: Small bowel follow-through yesterday revealed no evidence of any small bowel obstruction. Patient had complained of subjective pain and given intravenous narcotics. He seems to be improved. Tolerating clear liquids today. Exam Data for Last 24 hours Vital signs and Labs for Last 24 Hours: Temp Pulse Resp BP Pulse Ox O2 Del Method 98.2 F 65 17 135/70 96 Room Air 01/12/25 07:22 01/12/25 07:22 01/12/25 07:22 01/12/25 07:22 01/12/25 07:22 01/12/25 07:22 Laboratory Results - last 24 hr 01/10/25 23:10: Hemoglobin A1c 5.8 01/11/25 05:39: TSH 3.10 01/12/25 05:20: WBC 6.5 D, RBC 5.01, Hgb 15.0, Hct 45.5, MCV 90.8, MCH 29.9, MCHC 33.0, RDW 14.4, Plt Count 188, MPV 9.6, Neut % (Auto) 61.6, Lymph % (Auto) 23.3, Mccreary % (Auto) 8.9, Eos % (Auto) 4.9, Baso % (Auto) 0.8, Neut # (Auto) 4.0, Lymph # (Auto) 1.5, Mccreary # (Auto) 0.6, Eos # (Auto) 0.3, Baso # (Auto) 0.1, Sodi um 137, Potassium 3.8, Chloride 105, Carbon Dioxide 28, Anion Gap 7.8, BUN 19, Creatinine 1.20, Estimated Creat Clear 135, Estimated GFR 64, Est GFR ( Amer) 77, Glucose 104 H, Calcium 8.8 I & O for Last 24 hours: Intake & Output 01/09/25 01/10/25 01/11/25 01/12/25 11:59 11:59 11:59 11:59 Intake Total 999 / 999 Output Total 0 / 0 0 / 0 Balance 999 Weight 293 lb 1.6 oz 289 lb 1.6 oz *Routine Abdominal Exam Abdominal: Present soft; Absent tenderness Progress Note: A&P Assessment and plan (1) Abnormal CT of the abdomen: Status: Acute (2) Ileus: Status: Acute Assessment and Plan Assessment and Plan for All Diagnoses:: Acute abdominal series today reveals nonspecific bowel gas pattern with contrast through the colon. Full liquid diet. If tolerated possible discharge this afternoon.
--- NOTE | 2025-01-12 14:23 | P.DS_ITS ---
<Statement entered by Mark Quispe MD - 01/17/25 15:35> Agree with plan of care as outlined by the GEOLOGICAL SPECIALIST. General Admission date:: 01/11/25 Discharge date: 01/12/25 HPI HPI HPI: Patient is 49-year-old male with history of hypertension, diastolic dysfunction, severe obstructive sleep apnea, gout, migraines. He presented to [facility] emergency department early this morning with bilateral upper abdominal pain. He was found to have a mild leukocytosis of 11,800. He underwent CT scan of the abdomen and pelvis which suggested findings consistent with enteritis with ileus however early small bowel obstruction could appear similarly. He was admitted for inpatient management and surgical consultation was obtained. Patient has never had prior abdominal surgery. He did move his bowels last night. He states that he always has somewhat loose bowel movements. He has had a couple previous colonoscopies last one reportedly a couple of years ago and unremarkable. Hospital Course Hospital Course Hospital Course: Mr. Russo is a 49-year-old male who presented to the emergency department with complaints of abdominal pain, nausea, vomiting. Workup in the emergency department was significant for small bowel enteritis with ileus versus early obstruction. Hospital medicine was consulted for admission and agreed to admit the patient for continued monitoring and treatment. Plan of care as follows: #Abdominal pain #Ileus versus SBO ? Patient initially made n.p.o. IV fluids, antibiotics, and pain management with IV morphine initiated. General surgery consulted and recommendation for small bowel follow-through. Small bowel follow-through significant for small bowel ileus without evidence of obstruction. Clear liquid diet ordered. Patient tolerated without issue. Patient continue to advance diet, full liquid diet tolerated without issue. Patient continues to pass flatus, and had a bowel movement this morning that he states was normal. Denies nausea, vomiting, diarrhea, fever, chills, chest pain, shortness of breath. He states that he is having intermittent abdominal discomfort but no pain. Patient will follow-up with general surgery in 2 weeks. ?Patient denies history of any abdominal surgery. States he has had multiple colonoscopies in the past without issues. Reports he is having bowel movements and passing gas. X-ray this morning shows nonspecific bowel gas pattern, no free air. ? Lab work this morning very reassuring, WBC 6.5, no anemia, normal kidney function, no electrolyte abnormalities. #Hypothyroid: Patient has known hypothyroid, TSH 3.10. Continue levothyroxine 150 mcg at discharge. #NAVA: Patient states he has severe sleep apnea. Continue to use CPAP nightly. #Continue Flonase twice daily, propranolol 80 mg daily, colchicine 0.6 mg twice daily as needed, rizatriptan 10 mg daily as needed for migraines, allopurinol 100 mg daily as needed. Exam Data for Last 24 hours Vital signs and Labs for Last 24 Hours: Temp Pulse Resp BP Pulse Ox O2 Del Method 98.2 F 65 17 135/70 96 Room Air 01/12/25 07:22 01/12/25 07:22 01/12/25 07:22 01/12/25 07:22 01/12/25 07:22 01/12/25 14:05 Laboratory Results - last 24 hr 01/10/25 23:10: Hemoglobin A1c 5.8 01/11/25 05:39: TSH 3.10 01/12/25 05:20: WBC 6.5 D, RBC 5.01, Hgb 15.0, Hct 45.5, MCV 90.8, MCH 29.9, MCHC 33.0, RDW 14.4, Plt Count 188, MPV 9.6, Neut % (Auto) 61.6, Lymph % (Auto) 23.3, Hernando % (Auto) 8.9, Eos % (Auto) 4.9, Baso % (Auto) 0.8, Neut # (Auto) 4.0, Lymph # (Auto) 1.5, Hernando # (Auto) 0.6, Eos # (Auto) 0.3, Baso # (Auto) 0.1, Sodium 137, Potassium 3.8, Chloride 105, Carbon Dioxide 28, Anion Gap 7.8, BUN 19, Creatinine 1.20, Estimated Creat Clear 135, Estimated GFR 64, Est GFR ( Amer) 77, Glucose 104 H, Calcium 8.8 I & O for Last 24 hours: Intake & Output 01/09/25 01/10/25 01/11/25 01/12/25 23:59 23:59 23:59 23:59 Intake Total 2600 / 2600 360 / 360 Output Total 0 / 0 0 / 0 Balance 2600 / 2600 360 / 360 Weight 131.542 kg 132.948 kg 131.134 kg Constitutional Constitutional: no acute distress, obese and cooperative *Routine HEENT Exam Head: Present normocephalic Eye: Present EOMI and PERRL ENT: Present mucous membranes moist *Routine Neck Exam Neck: Present supple; Absent lymphadenopathy *Routine Respiratory Exam Respiratory: Present CTA bilaterally and normal respiratory effort; Absent wheezes or crackles *Routine Cardiovascular Exam Cardiovascular: Present RRR, Normal S1 and Normal S2; Absent murmur *Routine Abdominal Exam Abdominal: Present soft, normoactive bowel sounds and obese; Absent tenderness or distended *Routine Rectal Exam Patient deferred: visual exam *Routine Exam Patient deferred: penile exam *Routine Extremities Exam Extremities: Present full ROM and pulses intact; Absent cyanosis, clubbing or edema *Routine Skin Exam Skin: Present intact, dry and warm; Absent rash *Routine Neurological Exam Neurological: Present alert, oriented X3, vision grossly intact, hearing grossly intact and normal speech Results Data Completed and Pending Labs on day of discharge: Labs from last 24 hours 01/12/25 01/11/25 01/10/25 05:20 05:39 23:10 WBC 6.5 D RBC 5.01 Hgb 15.0 Hct 45.5 MCV 90.8 MCH 29.9 MCHC 33.0 RDW 14.4 Plt Count 188 MPV 9.6 Neut % (Auto) 61.6 Lymph % (Auto) 23.3 Hernando % (Auto) 8.9 Eos % (Auto) 4.9 Baso % (Auto) 0.8 Neut # (Auto) 4.0 Lymph # (Auto) 1.5 Hernando # (Auto) 0.6 Eos # (Auto) 0.3 Baso # (Auto) 0.1 Sodium 137 Potassium 3.8 Chloride 105 Carbon Dioxide 28 Anion Gap 7.8 BUN 19 Creatinine 1.20 Estimated Creat Clear 135 Estimated GFR 64 Est GFR ( Amer) 77 Glucose 104 H Hemoglobin A1c 5.8 Calcium 8.8 TSH 3.10 DS: Diagnosis Discharge Diagnosis (1) Abnormal CT of the abdomen: Status: Acute Code(s): R93.5 - Abnormal findings on diagnostic imaging of other abdominal regions, including retroperitoneum (2) Ileus: Status: Acute Code(s): K56.7 - Ileus, unspecified Meds Home Medications and Allergies Home Medications ?Medication ?Instructions ?Recorded ?Confirmed ?Type allopurinol 100 mg tablet 100 mg PO DAILYP PRN GOUT 01/11/25 History rizatriptan 10 mg disintegrating 10 mg PO DAILYP PRN m igraines 10/28/19 01/11/25 History tablet propranolol 80 mg capsule,24 80 mg PO DAILY 01/27/20 1 History hr,extended release colchicine 0.6 mg tablet (Colcrys) 0.6 mg PO BID PRN G OUT 05/23/21 01/11/25 History azelastine 137 mcg-fluticasone 50 1 spray intranasal B ID 01/11/25 01/11/25 History mcg/spray nasal spray levothyroxine 150 mcg tablet 150 mcg PO DAILY 01/11/25 01/11/25 History New Prescriptions to Start Prescriptions: Allergies Allergy/AdvReac Type Severity Reaction Status Date / Time Penicillins Allergy Unknown Unknown Verified 12/27/23 08:52 allergy reaction Sulfa (Sulfonamide Allergy Hives Verified 12/27/23 08:52 Antibiotics) Discharge Plan Disposition Patient Disposition: Home, Self-Care Condition: Good Follow up Plan Follow up with: Gus Martinez MD [Staff Physician, General Surgery] - 2 weeks Beatrice Finley [Primary Care Provider, Medical] - 01/18/25 11:30 am Prescriptions/Medication Reconciliation: Continued propranolol 80 mg capsule,extended release 24 hr 80 mg PO DAILY allopurinol 100 mg tablet 100 mg PO DAILYP PRN (Reason: GOUT) colchicine [Colcrys] 0.6 mg tablet 0.6 mg PO BID PRN (Reason: GOUT) rizatriptan 10 mg tablet,disintegrating 10 mg PO DAILYP PRN (Reason: migraines) Patient Comments: PLEASE SEE ATTACHED FOR DETAILED DIRECTIONS azelastine-fluticasone 137-50 mcg/spray spray,non-aerosol 1 spray INTRANASAL BID Patient Comments: USE 1 SPRAY EACH NOSTRIL TWICE A DAY levothyroxine 150 mcg tablet 150 mcg PO DAILY Patient Comments: TAKE 1 TABLET EVERY DAY BY ORAL ROUTE IN THE MORNING. Problem Reconciliation Problems Reviewed?: Yes Patient Discharge Instructions ACTIVITY: Continue current activity Additional Instructions: Lolo diet Patient Instructions: Small Bowel Obstruction, DI for Abdominal Pain in Adults Print Language: Sinhala Providers Primary Care Provider: Beatrice Finley Admit Provider: Bravo He Attending Provider: Bravo He
--- NOTE | 2025-01-13 10:15 | SW/DCPLANNER ---
Spoke with patient on the phone. Patient stated that he is doing good. Patient stated that he is aware of his upcoming appointments. Patient stated that he was not prescribed any new medicine. Patient stated that he has no concerns or questions at this time. Paola Uriostegui
== END 2025-01-12 15:04 | disposition home or self-care (01) ==
LOC: ER 01-11 00:44 → 2ND 01-11 00:47
PROVIDERS: Nurse Practitioner Acute Care; Admitting Provider Family Medicine; Emergency Provider Emergency Medicine; PCP Family Medicine; Visit Provider Family Medicine
DX: K56.7 Ileus, unspecified (principal); G47.33 Obstructive sleep apnea (adult) (pediatric); E03.9 Hypothyroidism, unspecified; G43.909 Migraine, unspecified, not intractable, without status migrainosus; M10.9 Gout, unspecified; E66.9 Obesity, unspecified; J98.11 Atelectasis; I11.9 Hypertensive heart disease without heart failure; K57.30 Diverticulosis of large intestine without perforation or abscess without bleeding; Z88.0 Allergy status to penicillin; Z68.34 Body mass index [BMI] 34.0-34.9, adult; Z99.89 Dependence on other enabling machines and devices; Z88.2 Allergy status to sulfonamides; Z79.890 Hormone replacement therapy; Z79.899 Other long term (current) drug therapy
CPT/HCPCS: 36415; 74021; 74177; 74250; 80048; 80053; 81001; 83036; 83690; 84443; 84484; 85025; 93005; 96361; 96374; 96375; 96376; 99285; G0378; J1885; J2270; J2405; J7120; Q9963; Q9967

== ENCOUNTER 2025-02-08 09:30 | Outpatient (CLI) | payer BC, SELFPAY ==
--- OUTSIDE RECORDS SUMMARY | 2025-02-08 09:34 | XMS_ITS | Clinical Summary ---
[facility] Address [address] [place] [address] Care Team Providers Care Pharmacy Technician Assistant Name Role Phone Provider, No Known Primary Care Provider Social History Tobacco Use Types Packs/Day Years [...] of 2) 2023 INFLUENZA VACCINE 10/16/2024 Insurance [facility] Care Teams Pharmacy Technician Assistant Relationship Specialty Start Date End Date Provider, [place] [address] PCP - General 02/29/16
--- OUTSIDE RECORDS SUMMARY | 2025-02-08 09:34 | XMS_ITS | Referral Summary ---
Author Organization [email or web address] ([place], [place], [place], [place], [place]) Address [address] [place] [address] Care Team Providers Care Technical Publications Writer Name Role Phone Beatrice Finley MD Primary Care Provider [phone] Sonali Mccray APRN Unavailable [phone] Allergies Active Allergy Reactions Criticality Noted Date Comments Penicillin 10/30/2022 Medications levothyroxine (SYNTHROID, LEVOTHROID) 100 MCG tablet Take 1 tablet (100 mcg total) by mouth daily. 3 Active meloxicam (MOBIC) 15 MG tablet Take 1 tablet (15 mg total) by mouth daily. Active naproxen (NAPROSYN) 500 MG tablet Take 1 tablet (500 mg total) by mouth 2 (two) times daily with breakfast and dinner. Active rizatriptan (MAXALT) 10 MG disintegrating tabletIndications: Migraine without aura, not intractable, without status migrainosus Melt 1 tablet on tongue at onset of migraine. May repeat a dose in 2 hours if needed. Max of 2 tabs/24 hours.. 9 tablet 11 4 Active propranoloL (INDERAL LA) 80 MG 24 hr capsuleIndications :Migraine without aura, not intractable, without status migrainosus TAKE 1 CAPSULE BY MOUTH EVERY DAY 30 capsule 5 Active rimegepant (Nurtec ODT) 75 mg TbDLIndications:Mi graine without aura, not intractable, without status migrainosus Take 75 mg by mouth daily as needed (Migraine). 8 tablet 2 5 Active Active Problems No known active problems Social [...] Date Danilo rded Speak language other than Ghanaian at home Not on file 04/05/2023 Want [...] Description 04/01/2025 2:45 PM EST Office Visit [facility] Neurology - [facility] [address] [place] [address] Sonali Mccray, EDUCATIONAL PSYCHOLOGIST [address] [facility] [address] [place] [address] Insurance BLUE CROSS/BLUE SHIELD Care Teams Technical Publications Writer Relationship Specialty Start Date End Date Beatrice Finley MD [address] [place] [id number] PCP - General Family Medicine 10/30/22 Sonali Mccray, EDUCATIONAL PSYCHOLOGIST [address] [facility] [address] [place] [address] Neurology 12/18/23
--- OUTSIDE RECORDS SUMMARY | 2025-02-08 09:34 | XMS_ITS | Clinical Summary ---
Author Organization [employer] ([place], [place], [place], [place], [place]) Address [address] [place] [address] Care Team Providers Care Screw Driver Operator Name Role Phone Beatrice Finley MD Primary Care Provider [phone] Sonali Mccray APRN Unavailable [phone] Allergies Active Allergy Reactions Criticality Noted Date [...] Active Active Problems No known active problems Family History Medical History Relation Name Comments [...] Date Danilo rded Speak language other than Ecuadorean at home Not on file 04/05/2023 Want [...] Description 04/01/2025 2:45 PM EST Office Visit [facility] Neurology - [place] [address] [facility] [address] [place] [address] Sonali Mccray, FLIGHT DISPATCHER [address] [facility] [address] [place] [address] Health Maintenance Due Date Last [...] 2024 10/10/2020, 09/10/2020 Influenza Vaccine (#1) 2024 , 12/29/2020, 02/17/2019, Additional history exists Tobacco Cessation Counseling and Screening (12+) 12/17/2024 12/18/2023 DTAP/TDAP/TD VACCINES (3 - T d or Tdap) 12/02/2028 12/02/2018, 05/28/2005 Insurance BLUE CROSS/BLUE SHIELD Care Teams Screw Driver Operator Relationship Specialty Start Date End Date Beatrice Finley MD [address] [place] [phone] PCP - General Family Medicine 10/30/22 Sonali Mccray, FLIGHT DISPATCHER [facility] [place] [address] Neurology 12/18/23
[2025-02-08] MEDS: BARIUM SULFATE(READI-CAT2);450ML BOTTLE 450 ML PO (09:44)
[2025-02-08] MEDS: SODIUM CHLORIDE 0.9% 10ML SYR (RAD ONLY) 10 ML IV (09:44)
[2025-02-08] MEDS: IOPAMIDOL-370 (76%);100ML BOTTLE 75 ML IV (09:44)
--- NOTE | 2025-02-08 10:00 | CT_ITS ---
FINAL REPORT TECHNIQUE: Thin section axial images were obtained through the abdomen after intravenous contrast. Reconstruction images were obtained from the axial data. Exam was performed using dose reduction techniques. CLINICAL HISTORY: Right lower quad pain/hx of bowel obstruction COMPARISON: 01/11/2025 FINDINGS: The lung bases are clear. There is fatty infiltration of the liver. The gallbladder is present. The spleen, adrenal glands, and pancreas are unremarkable. There are small bilateral nonobstructing renal stones. There is no hydronephrosis. Abdominal GI tract is without acute abnormality. There is no abdominal lymphadenopathy or ascites. No focal small bowel obstruction is identified. There is small bowel wall thickening. The appendix is normal. There is diverticulosis without evidence of diverticulitis. The prostate is unremarkable. There is no pelvic lymphadenopathy or ascites. No acute osseous abnormalities identified. IMPRESSION: No CT evidence of acute intra-abdominal or intrapelvic abnormality. Fatty liver. Reviewed, Interpreted and Dictated by Edel Hampton MD Transcribed by Lizzie Cason Authenticated and [facility]
== END 2025-02-08 23:59 | disposition home or self-care (01) ==
LOC: RAD 09:31
PROVIDERS: PCP Family Medicine; Visit Provider Surgery
DX: K76.0 Fatty (change of) liver, not elsewhere classified (principal); R10.31 Right lower quadrant pain; Z87.19 Personal history of other diseases of the digestive system
CPT/HCPCS: 74177; Q9967